=== PATIENT | female | born 2005 | race Caucasian/White ===

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

== ENCOUNTER 2025-08-10 23:19 | Emergency (ER) | payer OTHER, MEDICAID, SELFPAY ==
[2025-08-10 23:20] VITALS: BP 128/91; PULSE 78; RESP 16; TEMP 36.2; O2SAT 99; BMI 26.2
[2025-08-10 23:58] LABS: Hematocrit 40.4 % (37-47); Hemoglobin 13.9 g/dL (12.0-15.0); Immature Granulocytes Count 0.110 X10^3/uL (0.0-0.0); Mean Corp Hgb Conc 34.4 g/dL (32-36); Mean Corpuscular Volume 86.7 fL (81-99); Mean Platelet Vol. 10.7 fl (6.2-12.0); NRBC Flagged by Analyzer 0 % (0-5); Platelet Count 259 K/mm3 (150-450); RBC Distribution Width CV 12.7 % (11.6-14.6); RBC Distribution Width SD 39.8 fl (35.1-43.9); Red Blood Count 4.66 M/mm3 (4.2-5.4); White Blood Count 8.9 K/mm3 (4.4-11.0)
[2025-08-11] LABS: Mucous, Urine 0 SEEN /hpf (<or=2+); Red Blood Cells-Urine 0 SEEN /hpf (0-5)
[2025-08-11 00:01] LABS: Color, Urine Yellow (Yellow); Glucose, Dipstick Normal (Normal); Ketone-Dipstick Negative (Negative); Leukocyte Esterase-Dipstick Negative /ul (Negative); Nitrite-Dipstick Negative (Negative); Occult Blood-Urine 250 /ul (Negative); Protein-Dipstick 15 mg/dl (Negative); Specific Gravity, Urine 1.025 (1.002-1.030); Urine Bilirubin Dipstick Negative (Negative)
[2025-08-11 00:09] LABS: Squamous Epithelial Cells - UA 0-5 SEEN /hpf (5-10)
[2025-08-11 00:17] LABS: Anion Gap 10 (5-15); BUN 18 mg/dL (4-19); BUN/Creat Ratio 31.9 RATIO (10-20); Calcium,Total 9.4 mg/dL (7.6-11.0); Carbon Dioxide 22.6 mmol/L (21.0-32.0); Chloride 104 mmol/L (98-108); Estimated Creatinine Clearance 147.47 ml/min (50-250); Glucose 115 mg/dL (70-99); Internal QC Validated? YES +Cl - CLEAR BKGD; Potassium 4.1 mmol/L (3.3-5.1); Pregnancy, Serum, hCG Quali. NEGATIVE Negative; Record Kit Lot#, Serum Preg. 0000980607
--- NOTE | 2025-08-11 00:38 | EDS_ITS ---
HPI HPI - Female History of Present Illness Chief Complaint: Vag Bld, Preg Informant: patient Narrative Narrative: Patient is a 20-year-old female who reports no significant past medical history. She states that she was a few weeks late on her menstrual cycle and she believes she was . She states that this evening she developed cramping lower abdominal pain and then when she used the restroom there was a large amount of blood within her urine. She states she is unsure if she could be potentially miscarrying or have an infection and with this comes in for evaluation. She denies any history of bleeding disorder or blood thinner use PFSH PFSH Allergy/AdvReac Type Severity Reaction Status Date / Time red dye AdvReac Vomiting Verified 08/10/25 23:22 Surgical History (Updated 08/10/25 @ 23:30 by Ellen Steele) Previous section Social History Smoking Status: Never smoker ROS ROS ED Constitutional Constitutional ED: Denies chills or fever(s) ENT ENT ED: Denies sore throat Cardiovascular Cardiovascular: Denies chest pain Respiratory/Chest Respiratory/Chest: Denies cough or dyspnea Gastrointestinal Gastrointestinal: Reports abdominal pain; Denies diarrhea, nausea or vomiting Genitourinary Genitourinary ED: Reports hematuria; Denies dysuria Musculoskeletal Musculoskeletal: Denies myalgias Integumentary Denies rash Neurologic Neurologic: Denies headache(s) Hematologic/Lymphatic Hematologic/Lymphatic: Denies easy bleeding or easy bruising EXAM Physical Exam Const Vital Signs: 08/10/25 23:20 08/11/25 00:44 Temperature 97.2 F L 97.9 F Temperature Source Oral Pulse Rate 78 63 Respiratory Rate 16 16 Blood Pressure 128/91 H 112/69 Blood Pressure Mean 103 83 Pulse Ox 99 100 Oxygen Delivery Method Room Air Positive well nourished and well developed General Appearance ED: well developed; Negative for pallor HEENT HEENT Narrative: Normocephalic atraumatic Eyes PERRL and EOMs intact bilaterally General Eye ED: Negative for pale conjunctiva or scleral icterus Neck supple Resp normal respiratory effort and clear to auscultation bilaterally Cardio regular rate and regular rhythm GI normal to inspection, nondistended, normoactive bowel sounds, soft to palpation, non-tender, non-distended and no masses GI Narrative: Abdomen is soft nontender and nondistended with normal active bowel sounds. No voluntary guarding or rigidity or pulsatile mass. No organomegaly noted Auscultation: normoactive bowel sounds Palpation: soft Back/Spine no CVA tenderness Extremity normal to inspection and full ROM Neuro oriented x3, CN's II-XII intact bilaterally and no sensory deficits noted Sensorium / Orientation: alert Motor Exam: strength 5/5 throughout Psych mental status grossly normal Skin no rashes or lesions noted and no wounds Skin Narrative: Capillary refill is less than 3 seconds General Skin Exam: Negative for jaundice or pallor MDM MDM MDM Narrative Medical decision making narrative: Patient presented to ER with stable vitals. She reported abdominal cramping with blood in her urine. This could be related to kidney stone versus hemorrhagic cystitis versus complication such as miscarriage as subchorionic hemorrhage. As she does not have any CVA pain I have low concern for kidney stone. Therefore I do not feel the need for an emergent CT scan. As it is unsure if patient is or not I will hold off on ordering a ultrasound and simply check a serum value at this time along with basic laboratory studies and urine sample. Patient's white count is normal and there is no neutrophil elevation going against infection her hemoglobin hematocrit are normal as well going against acute blood loss anemia and she has no sign of acute kidney injury or electrolyte abnormality. Her urine sample does show blood but no sign of infection going against hemorrhagic cystitis. Her test is negative going against a complication. Based on her report that she was a few weeks late on her menstrual cycle and then the symptoms occurred with abdominal cramping this is most likely menorrhagia and has vitals are stable and there is no findings to suggest need for acute blood loss anemia or complication she is otherwise safe for discharge History & Record Review Discussion w/independent historian: Patient Lab Data Attestation: I reviewed the patient's lab results. Labs: Laboratory Results - last 24 hr 08/10/25 08/10/25 23:50 23:55 WBC 8.9 RBC 4.66 Hgb 13.9 Hct 40.4 MCV 86.7 MCH 29.8 MCHC 34.4 RDW Std Deviation 39.8 RDW Coeff of [place] 12.7 Plt Count 259 MPV 10.7 Immature Gran % (Auto) 1.200 H Neut % (Auto) 55.6 Lymph % (Auto) 35.5 [place] % (Auto) 6.0 Eos % (Auto) 1.4 Baso % (Auto) 0.3 Absolute Neuts (auto) 4.9 Absolute Lymphs (auto) 3.14 Nucleated RBC % 0 Sodium 137 Potassium 4.1 Chloride 104 Carbon Dioxide 22.6 Anion Gap 10 BUN 18 Creatinine 0.56 L Estim Creat Clear Calc 147.47 Est GFR (MDRD) Non-Af 134 BUN/Creatinine Ratio 31.9 H Glucose 115 H Calcium 9.4 Serum , Qual NEGATIVE Urine Color Yellow Urine Clarity Sl. Cloudy Urine pH 5.0 Ur Specific [place] 1.025 Urine Protein 15 H Urine Glucose (UA) Normal Urine Ketones Negative Urine Occult Blood 250 H Urine Nitrite Negative Urine Bilirubin Negative Urine Urobilinogen Normal Ur Leukocyte Esterase Negative Urine RBC 0 SEEN Urine WBC 0 SEEN Ur Squamous Epith Cells 0-5 SEEN Urine Bacteria 0 SEEN Urine Mucus 0 SEEN Discharge Plan Triage Chief Complaint: Vag Bld, Preg ED Provider: Kalyan Ashraf Dx/Rx/DC Orders Clinical Impression: Menorrhagia Instructions: ED Heavy Menstrual Bleeding Other Ambulatory Orders: Transvaginal Non- (Routine) Facility: [facility] - Location: [facility] Ordered By: Dr. Kalyan Ashraf Primary Care Provider: Care Physician,No Primary Referrals: Sherin Painter DO [Med Staff - Active Staff, Obstetrics-Gynecology (OBGYN)] Care Physician,No Primary [Primary Care Provider, Medical] Activity Restrictions/Additional Instructions: Your test was negative in the ER. Your urine sample does show blood consistent with your history but there is no signs of urinary tract infection. Obtain your outpatient ultrasound to assess for anatomical causes of your blee ding and follow-up with [facility] for repeat evaluation. Return to the ER should you have any further concerns Print Language: Kittitian Disposition Disposition: Home, Self Care Discharge Date/Time: 08/11/25 00:44
[2025-08-11 00:44] VITALS: BP 112/69; PULSE 63; RESP 16; TEMP 36.6; O2SAT 100
== END 2025-08-11 00:44 | disposition home or self-care (01) ==
PROVIDERS: Emergency Provider Emergency Medicine; Visit Provider Emergency Medicine
DX: N92.0 Excessive and frequent menstruation with regular cycle (principal); R31.9 Hematuria, unspecified; R10.9 Unspecified abdominal pain
CPT/HCPCS: 80048; 81001; 84703; 85025; 99283; A4216

== ENCOUNTER → 2025-09-16 | Outpatient (CLI) | payer OTHER, MEDICAID, SELFPAY ==
--- NOTE | 2025-09-16 10:11 | US_ITS ---
PROCEDURE: TRANSVAGINAL NON- 09/16/2025 REASON FOR EXAM: DYSFUNCTIONAL UTERINE BLEEDING TECHNIQUE: Procedure Code: USTVAG Modality: US Procedure: TRANSVAGINAL NON- COMPARISON: None FINDINGS: LMP: September 08, 2025. Measurements: Uterus: 9.7 cm x 5.4 cm x 3.6 cm with a volume of 97.3 mL Endometrial Thickness: 3 mm. It is trilaminar in appearance. Right Ovary: 3.1 cm x 2.7 cm x 1.7 cm with a volume of 7.7 mL. Left Ovary: 2.9 cm x 2 cm x 1.7 cm with a volume of 5.3 mL. Uterus: Normal size, myometrial echotexture, and contour. Endometrium: Unremarkable. Right ovary: Normal size and echotexture. Left ovary: Normal size and echotexture. Other: No large pelvic mass identified. US/Transvaginal Non- IMPRESSION: NORMAL transvaginal PELVIC ULTRASOUND. Reading Location: [id number]
== END | disposition home or self-care (01) ==
PROVIDERS: Referring Provider Emergency Medicine; Visit Provider Emergency Medicine
DX: N92.0 Excessive and frequent menstruation with regular cycle (principal); N93.8 Other specified abnormal uterine and vaginal bleeding
CPT/HCPCS: 76830

== ENCOUNTER 2025-10-29 20:34 | Emergency (ER) | payer OTHER, SELFPAY ==
[2025-10-29 20:34] VITALS: BP 128/79; PULSE 94; RESP 16; TEMP 36.6; O2SAT 99; BMI 21.9
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
[2025-10-29] MEDS: HYDROcodone Bitartrate/Apap 5/325 Tablet PO (21:01)
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
--- OUTSIDE RECORDS SUMMARY | 2025-10-29 21:07 | XMS RPT_ITS | CCD ---
Author Organization [facility] Care Team Providers Care Cloth Washer Name Role Phone Unavailable Primary Care Provider Unavailabl e REFERRED, SELF Referring Unavailable KARMEN LOPEZ Primary Care Unavailable SHERRON MIR Attending Unavailable Unavailable Primary Care Provider Unavailabl e Unavailable Primary Care Provider Unavailabl e Blanton DO, Cameron N Primary Care Provider BRAULIO HOU Referring Unavailable BLANTON, CAMERON N Attending Unavailable BLANTON, CAMERON N Primary Care Unavailable BLANTON, CAMERON N Referring Unavailable BLANTON, CAMERON N Primary Care Unavailable PAKO NEWOTN Referring Unavailable BLANTON, CAMERON N Primary Care Unavailable PAKO NEWTON Attending Unavailable BLANTON, CAMERON N Primary Care Unavailable RUTH RAMIREZ Attending Unavailable BLANTON, CAMERON N Primary Care Unavailable BLANTON, CAMERON N Primary Care Unavailable SELF Referring Unavailable DAYRON CAO Attending Unavailable BLANTON, CAMERON N Primary Care Unavailable BLANTON, CAMERON N Primary Care Unavailable SELF Referring Unavailable BLANTON, CAMERON N Primary Care Unavailable RUTH RAMIREZ Attending Unavailable Kalyan Ashraf Attending Unavailable Care Physician, No Primary Primary Care Unava ilable Care Physician, No Primary Primary Care Physicia n Unavailable Dr. Kalyan Ashraf DO Attending Physician [phone] Dr. Kalyan Ashraf DO Emergency Department Physic kinjal Allergies Allergy Classification Reported Allergen(s) Allergy Type Date of Onset Reaction(s) Facility (3 sources) Contrast media; Translations: [RED DYE] Propensity to adverse reactions to drug (disorder) 6 Vomiting [facility] Repository (16 sources) Fd And C Red No.40; Translations: [FD AND C RED NO.40] Drug Allergy 6 GI Upset [facility] Medications Current Medications Medication Drug Class(es) Dates Sig (Normalized) Sig (Original) amoxicillin 875 mg / clavulanate 125 mg oral tablet (3 sources) Penicillin-class Antibacterial Start: 07-01-2024 End: 07-08-2024 take 1 tablet by mouth twice daily amoxicillin-clavu lanate potassium (AUGMENTIN) 875-125 mg per tablet Take 1 tablet by mouth two times a day for 7 days. 14 tablet 07/01/2024 07/08/2024 Active benzonatate 100 mg oral capsule (3 sources) Non-narcotic Antitussive Start: 02-28-2025 End: 03-07-2025 take 1 capsule by mouth three times daily as needed for cough benzonatate (TESSALON PERLE) 100 mg capsule Indications: Viral URI with cough Take 1 capsule by mouth three times a day as needed for cough for up to 7 days. 20 capsule 02/28/2025 03/07/2025 Active Start: 07-06-2024 End: 08-09-2024 take 1 capsule by mouth every eight hours as needed benzonatate (TESSALON PERLE) 100 mg capsule Take 1 capsule by mouth three times a day as needed. 21 capsule 07/06/2024 08/09/2024 Discontinued clotrimazole 10 mg/ml topical cream (1 source) Azole Antifungal Start: 08-28-2024 End: 09-11-2024 clotrimazole (LOTRIMIN) 1 % cream Indications: Ringworm Apply 1 application to affected area two times a day for 14 days. Can be used 2-4 weeks...... use for 3 days after area is completley healed up. 28 g 08/28/2024 09/11/2024 Active doxycycline monohydrate 100 mg oral tablet (1 source) Tetracycline-class Drug Start: 07-06-2024 End: 07-13-2024 take 1 tablet by mouth twice daily doxycycline monohydrate 100 mg tablet Take 1 tablet by mouth two times a day for 7 days. 14 tablet 07/06/2024 07/13/2024 Active metroNIDAZOLE 500 mg oral tablet (1 source) Nitroimidazole Antimicrobial Start: 02-16-2024 End: 02-23-2024 take 1 tablet by mouth twice daily metroNIDAZOLE (FLAGYL) 500 mg tablet Take 1 tablet by mouth two times a day for 7 days. 14 tablet 0 02/16/2024 02/23/2024 Active Completed/Discontinued Medications Medication Drug Class(es) Dates Sig (Normalized) Sig (Original) acetaminophen 500 mg oral tablet (2 sources) Start: 01-06-2024 End: 08-10-2025 take 2 tablets by mouth every six hours Acetaminophen 500 mg Tablet Discontinued 1000 mg PO EVERY 6 HOURS 29 11January 06, 2024 1:00am August 10, 2025 11:29pm Start: 01-06-2024 take 1000 mg by mout h every six hours Acetaminophen Active 1000 MG PO EVERY 6 HOURS January 06, 2024 12:00am [id number] 200 actuat albuterol 0.09 mg/actuat metered dose inhaler (2 sources) beta2-Adrenergic Agonist Start: 07-06-2024 End: 08-09-2024 take 2 puff(s) by inhalation every four hours as needed for wheezing albuterol HFA (PROVENTIL HFA, VENTOLIN HFA) 90 mcg/actuation inhaler Inhale 2 Puffs as instructed every 4 hours as needed for wheezing/shortness of breath. 6.7 g 07/06/2024 08/09/2024 Discontinued aspirin 162 mg oral tablet (20 sources) Platelet Aggregation Inhibitor, Nonsteroidal Anti-inflammatory Drug End: 08-09-2024 take 162 mg by mouth once daily BABY ASPIRIN ORAL Take 162 mg by mouth once daily. 08/09/2024 Discontinued Comment on above: Take 162 mg by mouth once daily. docosahexaenoic acid 200 mg oral capsule (3 sources) Start: 12-15-2023 End: 08-10-2025 Docosahexaenoic Acid ( Dha) 200 mg capsule Discontinued mg PO December 15, 2023 1:00am August 10, 2025 11:29pm 168 hr ethinyl estradiol 0.77165 mg/hr / norelgestromin 0.31981 mg/hr transdermal system (6 sources) Progestin, Estrogen Start: 10-19-2022 End: 06-01-2023 apply 1 dose transdermal route every week Ethinyl Estradiol-Norelgestro m (XULANE) 150-35 mcg/24 hr patch Apply 1 Patch as directed one time a week. 9 Patch 3 01/17/2023 06/01/2023 Discontinued Comment on above: Apply 1 Patch as dir ected one time a week. etonogestrel 68 mg drug implant (20 sources) Progestin Start: 02-22-2024 End: 02-21-2027 etonogestrel (NEXPLANON) subdermal implant 68 mg Indications: Insertion of implantable subdermal contraceptive 1 Each by SUBDERMAL route as directed. 1 Each 02/22/2024 05/08/2025 Discontinued (Discontinued by Patient) fluticasone propionate 0.05 mg/actuat metered dose nasal spray (5 sources) Corticosteroid Start: 02-28-2025 End: 05-08-2025 take 2 spray(s) nasal route once daily fluticasone (FLONASE) 50 mcg/actuation nasal spray Indications: Viral URI with cough Use 2 sprays in each nostril once daily. 1 each 02/28/2025 05/08/2025 Discontinued (Discontinued by Patient) ibuprofen 600 mg oral tablet (2 sources) Nonsteroidal Anti-inflammatory Drug Start: 01-06-2024 End: 08-10-2025 take 1 tablet by mouth every six hours Ibuprofen 600 mg Tablet Discontinued 600 mg PO EVERY 6 HOURS 30 1 January 06, 2024 1:00am August 10, 2025 11:29pm meloxicam 15 mg oral tablet (8 sources) Nonsteroidal Anti-inflammatory Drug Start: 01-14-2025 End: 05-08-2025 take 1 tablet by mouth once daily meloxicam (MOBIC) 15 mg tablet Indications: Patellar tendonitis of right knee Take 1 tablet by mouth once daily. 30 tablet 1 01/14/2025 05/08/2025 Discontinued (Discontinued by Patient) ondansetron 4 mg disintegrating oral tablet (11 sources) Serotonin-3 Receptor Antagonist Start: 03-20-2024 End: 08-10-2025 take 1 tablet by mouth every eight hours as needed for nausea Ondansetron 4 mg tablet,disintegrating Discontinued 4 mg PO EVERY 8 HOURS NEEDED as needed for Nausea 14 March 20, 2024 12:00am August 10, 2025 11:29pm Start: 11-21-2023 End: 02-19-2024 take 1 tablet by mouth every eight hours as needed ondansetron orally disintegrating (ZOFRAN ODT) 4 mg disintegrating tablet Take 1 tablet by mouth every 8 hours as needed for nausea/vomiting. 30 tablet 0 11/21/2023 02/19/2024 Active Comment on above: Take 1 tablet by lisandra th every 8 hours as needed for nausea/vomiting. oxyCODONE hydrochloride 5 mg oral tablet (2 sources) Opioid Agonist Start: End: take 1 tablet by mouth twice daily as needed for pain Oxycodone 5 mg tablet Discontinued 5 mg PO TWICE A DAY as needed for pain 10 5 0 January 06, 2024 August 10, 2025 11:29pm Postoperative pain Other acute postprocedural pain PNV no.95/ferrous fum/folic ac ( ORAL) (20 sources) End: PNV no.95/ferrous fum/folic ac ( ORAL) Take by mouth. 08/09/2024 Discontinued PNV no.95/ferrou s fum/folic ac ( ORAL) Take by mouth. Active PNV no.95/ferrou s fum/folic ac ( ORAL) Take by mouth. 0 Active Comment on above: Take by mouth. predniSONE 20 mg oral tablet (1 source) Start: 07-06-2024 End: 07-06-2024 take 2 tablets by mouth once daily at mealtime predniSONE (DELTASONE) 20 mg tablet Take 2 tablets by mouth once daily for 4 days. Take daily with food. 8 tablet 07/06/2024 07/06/2024 Discontinued (Other) Problems Active Problems Problem Classification Problem Date Documented Date Episodic/Chronic Abdominal pain (3 sources) Abdominal pain; Translations: [Unspecified abdominal pain] 01-04-2024 Episodic Anxiety disorders (20 sources) Anxiety; Translations: [Anxiety disorder, unspecified] Onset: 06-01-2023 06-01-2023 Chronic Attention-deficit, conduct, and disruptive behavior disorders (20 sources) Attention deficit hyperactivity disorder, combined type; Translations: [Attention-deficit hyperactivity disorder, combined type] Onset: 07-08-2015 06-01-2023 Chronic Conditions associated with dizziness or vertigo (1 source) Dizziness; Translations: [Dizziness and giddiness] 03-20-2024 Episodic Contraceptive and procreative management (3 sources) Contraception status; Translations: [Encounter for surveillance of transdermal patch hormonal contraceptive device] Onset: 05-08-2025 Episodic Early or threatened labor (3 sources) False labor; Translations: [False labor, unspecified] 12-16-2023 Episodic Immunizations and screening for infectious disease (19 sources) Patient encounter status; Translations: [Encounter for screening laboratory testing for COVID-19 virus] Onset: 02-13-2025 Episodic Inflammatory diseases of female pelvic organs (1 source) Acute vaginitis; Translations: [Acute vaginitis] 02-15-2024 Episodic Malaise and fatigue (1 source) Asthenia; Translations: [Weakness] 03-20-2024 Episodic Menstrual disorders (5 sources) Primary amenorrhea; Translations: [Primary amenorrhea] Chronic Mood disorders (2 sources) Disturbance in mood; Translations: [Emotional lability] Onset: 05-08-2025 05-08-2025 Episodic Mycoses (1 source) Dermatophytosis; Translations: [Dermatophytosis, unspecified] 08-28-2024 Episodic Other circulatory disease (1 source) Elevated blood-pressure reading without diagnosis of hypertension; Translations: [Elevated blood-pressure reading, without diagnosis of hypertension] 12-21-2023 Episodic Other complications of ; puerperium affecting management of mother (3 sources) Deliveries by ; Translations: [Delivery by section] 01-07-2024 Episodic Comment on above: POD#4 Other complications of ; puerperium affecting management of mother (3 sources) Teenage ; Translations: [Teen ] 01-03-2024 Episodic Other connective tissue disease (1 source) Tendonitis of right patellar tendon; Translations: [Patellar tendinitis, right knee] 01-14-2025 Episodic Other female genital disorders (1 source) Abnormal uterine and vaginal bleeding, unspecified; Translations: [Abnormal uterine and vaginal bleeding, unspecified] Onset: 08-15-2025 Chronic Other female genital disorders (1 source) Vaginal odor; Translations: [Other specified noninflammatory disorders of vagina] 03-13-2025 Episodic Other female genital disorders (1 source) Other specified noninflammatory disorders of vagina; Translations: [Vaginal odor] Onset: 03-13-2025 Episodic Other injuries and conditions due to external causes (1 source) Tampon in vagina; Translations: [Foreign body in vulva and vagina, subsequent encounter] 03-13-2025 Episodic Other injuries and conditions due to external causes (1 source) Foreign body in vulva and vagina, subsequent encounter; Translations: [Retained tampon, subsequent encounter] Onset: 03-13-2025 Episodic Other lower respiratory disease (2 sources) Cough; Translations: [Acute cough] 07-06-2024 Episodic Other nervous system disorders (2 sources) Postoperative pain ; Translations: [Other acute postprocedural pain] 01-06-2024 Episodic Other and delivery including normal (9 sources) with uncertain dates; Translations: [Encounter for supervision of normal , unspecified, unspecified trimester] 06-01-2023 Episodic Other skin disorders (1 source) Loss of hair; Translations: [Nonscarring hair loss, unspecified] 08-09-2024 Episodic Other upper respiratory disease (1 source) Nasal congestion; Translations: [Nasal congestion] 06-10-2024 Episodic Other upper respiratory infections (3 sources) Pharyngitis; Translations: [Acute pharyngitis, unspecified] Episodic Otitis media and related conditions (1 source) Acute right otitis media; Translations: [Otitis media, unspecified, right ear] 07-01-2024 Episodic Pneumonia (except that caused by tuberculosis or sexually transmitted disease) (1 source) Infective pneumonia; Translations: [Pneumonia, unspecified organism] 07-06-2024 Episodic Polyhydramnios and other problems of amniotic cavity (1 source) Spontaneous rupture of membranes 01-15-2024 Episodic Prolonged (6 sources) Post-term ; Translations: [Post-term ] 01-06-2024 Episodic Residual codes; unclassified (1 source) Gestation [...] 12-21-2023 Episodic Residual codes; unclassified (1 source) Gestation period, 40 weeks; Translations: [40 weeks gestation of ] 12-28-2023 Episodic Unclassified (2 sources) Spontaneous rupture of membranes; Translations: [Spontaneous rupture of amniotic membranes] 01-03-2024 Unclassified (1 source) Right knee pain, unspecified chronicity 01-01-2025 Unclassified (1 source) Retained tampon, subsequent encounter; Translations: [Retained tampon, subsequent encounter] Onset: 03-13-2025 Unclassified (1 source) Acute cough; Translations: [Acute cough] Onset: 07-06-2024 Viral infection (2 sources) Viral disease; Translations: [Viral infection, unspecified] Episodic Past or Other Problems Problem Classification Problem Date Documented Da te Episodic/Chronic Other complications of (20 sources) High risk ; Translations: [Supervision of high risk , unspecified, second trimester] Onset: 09-07-2023 Resolved: 08-09-2024 09-07-2023 Episodic Other non-traumatic joint disorders (3 sources) Pain in right knee; Translations: [Pain in joint, lower leg] Onset: 01-14-2025 01-01-2025 Episodic Other skin disorders (1 source) Nonscarring hair loss, unspecified; Translations: [Hair loss] Onset: 08-09-2024 Episodic Results Test Name Value Interpretation Reference Range Facility Basic Metabolic Profile (BMP )on 08-11-2025 BUN/CRE 31.9 RATIO High 08-19 [facility] Comment on above: Performed By: #### L 500.2500, L100.0100, L700.6800 #### [facility] [address] [place], [address] Calcium [Mass/Vol] 9.4 mg/dL Normal 7.6-11.0 [facility] Comment on above: Performed By: #### L 500.2500, L100.0100, L700.6800 #### [facility] [address] [place], [address] Chloride [Moles/Vol] 104 mmol/L Normal 98-108 [facility] Comment on above: Performed By: #### L 500.2500, L100.0100, [id number] #### [facility] [address] [place], [address] CO2 [Moles/Vol] 22.6 mmol/L Normal 21.0-32.0 [facility] Comment on above: Performed By: #### L 500.2500, L100.0100, L700.6800 #### [facility] [address] [place], [address] Creatinine [Mass/Vol] 0.56 mg/dL Low 0.70-1.20 [facility] Comment on above: Performed By: #### L 500.2500, L100.0100, L700.6800 #### [facility] [address] [place], [address] ECRCL 147.47 ml/min Normal 50-250 [facility] Comment on above: Performed By: #### L 500.2500, L100.0100, [id number] #### [facility] [address] [place], [address] GAP 10 Normal 5-15 [facility] Comment on above: Performed By: #### L 500.2500, L100.0100, L700.6800 #### [facility] [address] [place], [address] GFR/1.73 sq M.predicted among non-blacks MDRD (S/P/Bld) [Vol rate/Area] 134 mL/min/{1.73_m2} Normal >60 [facility] Comment on above: Result Comment: mL/m in/1.73m2 CKD-EPI Creatinine Equation (2020) Performed By: #### L 500.2500, L100.0100, L700.6800 #### [facility] [address] [place], [address] Glucose [Mass/Vol] 115 mg/dL High 70-99 [facility] Comment on above: Performed By: #### L 500.2500, L100.0100, [id number] #### [facility] [address] [place], [address] Potassium [Moles/Vol] 4.1 mmol/L Normal 3.3-5.1 [facility] Comment on above: Performed By: #### L 500.2500, L100.0100, [id number] #### [facility] [address] [place], [address] Sodium [Moles/Vol] 137 mmol/L Normal 133-145 [facility] Comment on above: Performed By: #### L 500.2500, L100.0100, [id number] #### [facility] [address] [place], [address] Urea nitrogen [Mass/Vol] 18 mg/dL Normal 4-19 [facility] Comment on above: Performed By: #### L 500.2500, L100.0100, [id number] #### [facility] [address] [place], [address] Emergency Department Summary on 08-11-2025 Emergency Department Summary [facility] Medical Records Department [address] [place] [address] Emergency Department Summary 08/11/25 MR#: [id number] Acct: [id number] Name: MARISOL PONCE Rep #: [id number] : 2005 20 From: Kalyan Ashraf DO PCP: Care Physician,No Primary Status:DEP ER Location: ED HPI HPI - Female History of Present Illness Chief Complaint: Vag Bld, Preg Informant: patient Narrative Narrative: Patient is a 20-year-old female who reports no significant past medical history. She states that she was a few weeks late on her menstrual cycle and she believes she was . She states that this evening she developed cramping lower abdominal pain and then when she used the restroom there was a large amount of blood within her urine. She states she is unsure if she could be potentially miscarrying or have an infection and with this comes in for evaluation. She denies any history of bleeding disorder or blood thinner use PFSH PFSH Allergy/AdvReac Type Severity Reaction Status Date / Time red dye AdvReac Vomiting Verified 08/10/25 23:22 Surgical History (Updated 08/10/25 @ 23:30 by Ellen Steele) Previous section Social History Smoking Status: Never smoker ROS ROS ED Constitutional Constitutional ED: Denies chills or fever(s) ENT ENT ED: Denies sore throat Cardiovascular Cardiovascular: Denies chest pain Respiratory/Chest Respiratory/Chest: Denies cough or dyspnea Gastrointestinal Gastrointestinal: Reports abdominal pain; Denies diarrhea, nausea or vomiting Genitourinary Genitourinary ED: Reports hematuria; Denies dysuria Musculoskeletal Musculoskeletal: Denies myalgias Integumentary Denies rash Neurologic Neurologic: Denies headache(s) Hematologic/Lymphatic Hematologic/Lymphatic: Denies easy bleeding or easy bruising EXAM Physical Exam Const Vital Signs: 08/10/25 23:20 08/11/25 00:44 Temperature 97.2 F L 97.9 F Temperature Source Oral Pulse Rate 78 63 Respiratory Rate 16 16 Blood Pressure 128/91 H 112/69 Blood Pressure Mean 103 83 Pulse Ox 99 100 Oxygen Delivery Method Room Air Positive well nourished and well developed General Appearance ED: well developed; Negative for pallor HEENT HEENT Narrative: Normocephalic atraumatic Eyes PERRL and EOMs intact bilaterally General Eye ED: Negative for pale conjunctiva or scleral icterus Neck supple Resp normal respiratory effort and clear to auscultation bilaterally Cardio regular rate and regular rhythm GI normal to inspection, nondistended, normoactive bowel sounds, soft to palpation, non-tender, non- distended and no masses GI Narrative: Abdomen is soft nontender and nondistended with normal active bowel sounds. No voluntary guarding or rigidity or pulsatile mass. No organomegaly noted Auscultation: normoactive bowel sounds Palpation: soft Back/Spine no CVA tenderness Extremity normal to inspection and full ROM Neuro oriented x3, CN's II-XII intact bilaterally and no sensory deficits noted Sensorium / Orientation: alert Motor Exam: strength 5/5 throughout Psych mental status grossly normal Skin no rashes or lesions noted and no wounds Skin Narrative: Capillary refill is less than 3 seconds General Skin Exam: Negative for jaundice or pallor MDM MDM MDM Narrative Medical decision making narrative: Patient presented to ER with stable vitals. She reported abdominal cramping with blood in her urine. This could be related to kidney stone versus hemorrhagic cystitis versus complication such as miscarriage as subchorionic hemorrhage. As she does not have any CVA pain I have low concern for kidney stone. Therefore I do not feel the need for an emergent CT scan. As it is unsure if patient is or not I will hold off on ordering a ultrasound and simply check a serum value at this time along with basic laboratory studies and urine sample. Patient's white count is normal and there is no neutrophil elevation going against infection her hemoglobin hematocrit are normal as well going against acute blood loss anemia and she has no sign of acute kidney injury or electrolyte abnormality. Her urine sample does show blood but no sign of infection going against hemorrhagic cystitis. Her test is negative going against a complication. Based on her report that she was a few weeks late on her menstrual cycle and then the symptoms occurred with abdominal cramping this is most likely menorrhagia and has vitals are stable and there is no findings to suggest need for acute blood loss anemia or complication she is otherwise safe for discharge History Record Review Discussion w/independent historian: Patient Lab (more content not included)... Normal [facility] ,Serum,hCG Quali.on 08-11-2025 HCG, SERUM QUAL Negative Normal [facility] Comment on above: Performed By: #### L 500.2500, L100.0100, L700.6800 #### [facility] [address] [place], [address] Urinalysis, Completeon 08-11 EPI,SQUAMOUS 0-5 SEEN Normal 5-10 [facility] Comment on above: Order Comment: CLEAN CATCH Performed By: #### L 400.0001 #### [facility] [address] [place], [address] BACTERIA 0 SEEN Normal None Seen [facility] Comment on above: Order Comment: CLEAN CATCH Performed By: #### L 400.0001 #### [facility] [address] [place], [address] Mucus Ql (Urine sed) 0 SEEN Normal [facility] Comment on above: Order Comment: CLEAN CATCH Performed By: #### L 400.0001 #### [facility] [address] [place], [address] RBC 0 SEEN Normal 0-5 [facility] Comment on above: Order Comment: CLEAN CATCH Performed By: #### L 400.0001 #### [facility] [address] [place], [address] WBC 0 SEEN Normal 0-5 [facility] Comment on above: Order Comment: CLEAN CATCH Performed By: #### L 400.0001 #### [facility] [address] [place], [address] Absolute lymphocyte countOrd ered By: Kalyan Ashraf on 08-10-2025 Lymphocytes Auto (Unsp spec) [#/Vol] 3.14 10*3/uL 0.83-4.51 [facility] Absolute neutrophil countOrd ered By: Kalyan Ashraf on 08-10-2025 Neutrophils (Bld) [#/Vol] 4.9 10*3/uL 2.0-7.7 [facility] Anion gap in Serum or Plasma Ordered By: Kalyan Ashraf on 08-10-2025 Anion gap [Moles/Vol] 10 mmol/L 5- [facility] Automated lymphocyte count a s percentage of total leukocytesOrdered By: Kalyan Ashraf on 08-10-2025 Lymphocytes/100 WBC Auto (Unsp spec) 35.5 % - [facility] BUN/creatinine ratioOrdered By: Kalyan Ashraf on 08-10-2025 Urea nitrogen/Creatinine [Mass ratio] 31.9 mg/mg High 10- [facility] Basophil percentageOrdered B y: Kalyan Ashraf on 08-10-2025 Basophils/100 WBC (Bld) 0.3 % 0-1 [facility] Bilirubin Test strip Ql (U)O rdered By: Kalyan Ashraf on 08-10-2025 Bilirubin Ql (U) Negative Negative [facility] CBC W/Diff, Automatedon 07-31 Absolute Lymph 3.14 X10 3/uL Normal 0.83-4.51 [facility] Comment on above: Performed By: #### L 500.2500, L100.0100, L700.6800 #### [facility] [address] [place], [address] Absolute Neut 4.9 X10 3/uL Normal 2.0-7.7 [facility] Comment on above: Performed By: #### L 500.2500, L100.0100, L700.6800 #### [facility] [address] [place], [address] Basophils/100 WBC (Bld) 0.3 % Normal 0-1 [facility] Comment on above: Performed By: #### L 500.2500, L100.0100, L700.6800 #### [facility] [address] [place], [address] Eosinophils/100 WBC (Bld) 1.4 % Normal 0-5 [facility] Comment on above: Performed By: #### L 500.2500, L100.0100, L700.6800 #### [facility] [address] [place], [address] Erythrocyte distribution width (RBC) [Ratio] 12.7 % Normal 11.6-14.6 [facility] Comment on above: Performed By: #### L 500.2500, L100.0100, L700.6800 #### [facility] [address] [place], [address] Hematocrit (Bld) [Volume fraction] 40.4 % Normal 37-47 [facility] Comment on above: Performed By: #### L 500.2500, L100.0100, L700.6800 #### [facility] [address] [place], [address] Hemoglobin (Bld) [Mass/Vol] 13.9 g/dL Normal 12.0-15.0 [facility] Comment on above: Performed By: #### L 500.2500, L100.0100, L700.6800 #### [facility] [address] [place], [address] IG% 1.200 High 0.0-0.9 [facility] Comment on above: Result Comment: IG% - Immature Granulocytes (promyelocytes, myelocytes and metamyelocytes) > 1% indicates that a LEFT SHIFT is Present. Performed By: #### L 500.2500, L100.0100, L700.6800 #### [facility] [address] [place], [address] Lymphocytes/100 WBC (Bld) 35.5 % Normal 19-41 [facility] Comment on above: Performed By: #### L 500.2500, L100.0100, L700.6800 #### [facility] [address] [place], [address] MCH (RBC) [Entitic mass] 29.8 pg Normal 27.0-32.0 [facility] Comment on above: Performed By: #### L 500.2500, L100.0100, L700.6800 #### [facility] [address] [place], [address] MCHC (RBC) [Mass/Vol] 34.4 g/dL Normal 32-36 [facility] Comment on above: Performed By: #### L 500.2500, L100.0100, L700.6800 #### [facility] [address] [place], [address] MCV (RBC) [Entitic vol] 86.7 fL Normal 81-99 [facility] Comment on above: Performed By: #### L 500.2500, L100.0100, L700.6800 #### [facility] [address] [place], [address] Monocytes/100 WBC (Bld) 6.0 % Normal 0-10 [facility] Comment on above: Performed By: #### L 500.2500, L100.0100, L700.6800 #### [facility] [address] [place], [address] Neutrophils/100 WBC (Bld) 55.6 % Normal 47-70 [facility] Comment on above: Performed By: #### L 500.2500, L100.0100, L700.6800 #### [facility] [address] [place], [address] Nucleated RBC (Bld) [#/Vol] 0 10*3/uL Normal 0-5 [facility] Comment on above: Performed By: #### L 500.2500, L100.0100, L700.6800 #### [facility] [address] [place], [address] Platelet mean volume (Bld) [Entitic vol] 10.7 fL Normal 6.2-12.0 [facility] Comment on above: Performed By: #### L 500.2500, L100.0100, L700.6800 #### [facility] [address] [place], [address] Platelets (Bld) [#/Vol] 259 10*3/uL Normal 150-450 [facility] Comment on above: Performed By: #### L 500.2500, L100.0100, L700.6800 #### [facility] [address] [place], [address] RBC (Bld) [#/Vol] 4.66 10*6/uL Normal 4.2-5.4 [facility] Comment on above: Performed By: #### L 500.2500, L100.0100, L700.6800 #### [facility] [address] [place], [address] RDW SD 39.8 fl Normal 35.1-43.9 [facility] Comment on above: Performed By: #### L 500.2500, L100.0100, L700.6800 #### [facility] [address] [place], [address] WBC (Bld) [#/Vol] 8.9 10*3/uL Normal 4.4-11.0 [facility] Comment on above: Performed By: #### L 500.2500, L100.0100, L700.6800 #### [facility] [address] [place], [address] Carbon dioxide, total [Moles /volume] in Central venous bloodOrdered By: Kalyan Ashraf on 08-10-2025 CO2 [Moles/Vol] 22.6 mmol/L 21.0-32.0 [facility] Chloride assayOrdered By: Tressa Ashraf on 08-10-2025 Chloride [Moles/Vol] 104 mmol/L 98-108 [facility] Eosinophil percentageOrdered By: Kalyan Ashraf on 08-10-2025 Eosinophils/100 WBC (Bld) 1.4 % 0-5 [facility] Erythrocyte distribution wid th ratioOrdered By: Kalyan Ashraf on 08-10-2025 Erythrocyte distribution width (RBC) [Ratio] 12.7 % 11.6-14.6 [facility] Erythrocyte distribution wid th standard deviationOrdered By: Kalyan Ashraf on 08-10-2025 Erythrocyte distribution width (RBC) [Ratio] 39.8 fl 35.1-43.9 [facility] Glomerular filtration rate ( GFR) estimation/1.73 sq m using serum, plasma, or whole bOrdered By: Kalyan Ashraf on 08-10-2025 GFR/1.73 sq M.predicted among non-blacks MDRD (S/P/Bld) [Vol rate/Area] 134 mL/min/{1.73_m2} >60 [facility] Comment on above: mL/min/1.73m2 CKD-EP I Creatinine Equation (2020) Hematocrit Auto (Bld) [Volum e fraction]Ordered By: Kalyan Ashraf on 08-10-2025 Hematocrit (Bld) [Volume fraction] 40.4 % 37-47 [facility] Hemoglobin measurementOrdere d By: Kalyan Ashraf on 08-10-2025 Hemoglobin (Bld) [Mass/Vol] 13.9 g/dL 12.0-15.0 [facility] Immature granulocytes/100 WB C Auto (Bld)Ordered By: Kalyan Ashraf on 08-10-2025 Immature granulocytes/100 WBC (Bld) 1.200 % High 0.0-0.9 [facility] Comment on above: IG% - Immature Granu locytes (promyelocytes, myelocytes and metamyelocytes) > 1% indicates that a LEFT SHIFT is Present. Ketones Test strip Ql (U)Ord ered By: Kalyan Ashraf on 08-10-2025 Ketones Ql (U) Negative Negative [facility] MCV (mean corpuscular volume ) determinationOrdered By: Kalyan Ashraf on 08-10-2025 MCV (RBC) [Entitic vol] 86.7 fL 81-99 [facility] Mean corpuscular hemoglobin (MCH) determinationOrdered By: Kalyan Ashraf on 08-10-2025 MCH (RBC) [Entitic mass] 29.8 pg 27.0-32.0 [facility] Mean corpuscular hemoglobin concentration (MCHC) determinationOrdered By: Kalyan Ashraf on 08-10-2025 MCHC (RBC) [Mass/Vol] 34.4 g/dL 32-36 [facility] Mean platelet volume determi nationOrdered By: Kalyan Ashraf on 08-10-2025 Platelet mean volume (Bld) [Entitic vol] 10.7 fL 6.2-12.0 [facility] Microscopic analysis of urin e for red blood cells (RBC)Ordered By: Kalyan Ashraf on 08-10-2025 Microscopic analysis of urine for red blood cells (RBC) 0 SEEN /hpf 0-5 [facility] Monocyte percentageOrdered B y: Kalyan Ashraf on 08-10-2025 Monocytes/100 WBC (Bld) 6.0 % 0-10 [facility] Mucus LM Ql (Urine sed)Order ed By: Kalyan Ashraf on 08-10-2025 Mucus Ql (Urine sed) 0 SEEN /hpf [facility] Neutrophil percentageOrdered By: Kalyan Ashraf on 08-10-2025 Neutrophils/100 WBC (Bld) 55.6 % 47-70 [facility] Nitrite Test strip Ql (U)Ord ered By: Kalyan Ashraf on 08-10-2025 Nitrite Ql (U) Negative Negative [facility] Nucleated red blood cell per centageOrdered By: Kalyan Ashraf on 08-10-2025 Nucleated RBC/100 WBC (Bld) [Ratio] 0 % 0-5 [facility] Platelet countOrdered By: Tressa Ashraf on 08-10-2025 Platelets (Bld) [#/Vol] 259 10*3/uL 150-450 [facility] Potassium measurement (mass/ volume)Ordered By: Kalyan Ashraf on 08-10-2025 Potassium (Unsp spec) [Mass/Vol] 4.1 mmol/L 3.3-5.1 [facility] Protein Test strip Ql (U)Ord ered By: Kalyan Ashraf on 08-10-2025 Protein Ql (U) 15 mg/dl High Negative [facility] RBC Auto (Bld) [#/Vol]Ordere d By: Kalyan Ashraf on 08-10-2025 RBC (Bld) [#/Vol] 4.66 10*6/uL 4.2-5.4 [facility] Serum beta-hCG test, qualita tiveOrdered By: Kalyan Ashraf on 08-10-2025 Beta HCG ( test) Ql Negative [facility] Serum creatinine measurement (mass/volume)Ordered By: Kalyan Ashraf on 08-10-2025 Creatinine [Mass/Vol] 0.56 mg/dL Low 0.70-1.20 [facility] Serum glucose measurement (m ass/volume)Ordered By: Kalyan Ashraf on 08-10-2025 Glucose [Mass/Vol] 115 mg/dL High 70-99 [facility] Serum or plasma calcium annie urement (mass/volume)Ordered By: Kalyan Ashraf on 08-10-2025 Calcium [Mass/Vol] 9.4 mg/dL 7.6-11.0 [facility] Serum or plasma urea nitroge n measurement (mass/volume)Ordered By: Kalyan Ashraf on 08-10-2025 Urea nitrogen [Mass/Vol] 18 mg/dL 4-19 [facility] Sodium levelOrdered By: Onesimo Ashraf on 08-10-2025 Sodium [Moles/Vol] 137 mmol/L 133-145 [facility] Squamous epithelial cells de tection in urine sediment by light microscopyOrdered By: Kalyan Ashraf on 08-10-2025 Epithelial cells.squamous LM Ql (Urine sed) 0-5 SEEN /hpf 5-10 [facility] Urine clarityOrdered By: Herb Ashraf on 08-10-2025 Clarity (U) Sl. Cloudy Clear [facility] Urine color determinationOrd ered By: Kalyan Ashraf on 08-10-2025 Color (U) Yellow Yellow [facility] Urine glucose detectionOrder ed By: Kalyan Ashraf on 08-10-2025 Glucose Ql (U) Normal mg/dl Normal [facility] Urine leukocyte esterase det ection by dipstickOrdered By: Kalyan Ashraf on 08-10-2025 Leukocyte esterase Test strip Ql (U) Negative Negative [facility] Urine pHOrdered By: Kalyan castillo on 08-10-2025 pH (U) 5.0 [pH] 5.0 - 8.0 [facility] Urine sediment bacteria coun t by microscopy (number/high power field)Ordered By: Kalyan Ashraf on 08-10-2025 Bacteria LM.HPF (Urine sed) [#/Area] 0 /[HPF] None Seen [facility] Urine specific gravity measu rementOrdered By: Kalyan Ashraf on 08-10-2025 Specific gravity (U) [Rel density] 1.025 1.002-1.030 [facility] Urine urobilinogen measureme ntOrdered By: Kalyan Ashraf on 08-10-2025 Urobilinogen Ql (U) Normal mg/dl Normal [facility] White blood cell (WBC) count Ordered By: Kalyan Ashraf on 08-10-2025 WBC (Bld) [#/Vol] 8.9 10*3/uL 4.4-11.0 [facility] White blood cell countOrdere d By: Kalyan Ashraf on 08-10-2025 White blood cell count 0 SEEN /hpf 0-5 [facility] CNOVon 05-08-2025 CNOV Office Visit (OBGYWM ) -------- MARISOL PONCE ([id number]) 5 F Date Time Provider Department 05/08/25 9:30 AM RUTH RAMIREZ OBTIFFANYWM During your visit today, we recorded the following information about you: Blood pressure Weight Last Period 100/62 72.6 kg 05/01/25 Ruth Ramirez APRN.CNM 05/08/2025 9:45 AM Signed Mairsol is a 19 year old who presents for Nexplanon removal for mood changes and heavy periods. UNIVERSAL PROTOCOL / SAFETY CHECKLIST Procedure to be Performed: Implanon/Nexplanon (contraceptive subdermal implant) removal Sign In: A Moment of CARE was completed. Appropriate PPE (Personal Protective Equipment) worn by all providers involved with the procedure. Special equipment not required. Patient/Surrogate Stated/Verified: Patient name, Date of , Relevant allergies, and The intended procedure Time Out: Relevant labs, photos, and/or imaging studies are not applicable. Intended patient and procedure match the source document(s) (e.g. consent, HANDP, associated studies [imaging, pathology]) match the intended patient and procedure. Consent obtained and matches the intended procedure. Yes. Correct side/site is not applicable. Medications required for this procedure are verified. Fire risk assessed and is not applicable. Implants: are not applicable. Sign Out: Specimens not collected. All instruments, equipment, possible retained foreign bodies are accounted for. Yes. The post-procedure plan of care has been communicated to the patient or surrogate. TECHNIQUE: Patient placed in supine position with left arm bent at the elbow and placed over the head. Skin cleansed with betadine. 1mL of 1% lidocaine with epi injected subQ along insertion site. Scalpel used to made a 5mm stab incision superficially at distal end of Nexplanon. Device removed under sterile technique with a small hemostat. Sterile pressure dressing applied. AANDP: 19 year old here for Nexplanon removal Nexplanon removed intact without difficulty. The patient was instructed to remove the dressing after 24 hours. Contraceptive plans unsure- condom use encouraged MARIO Powell Courtney, APRN.CNM 05/08/2025 9:29 AM Signed Here are some links for wonderful Providers here in the community and surrounding areas. Do not hesitate to contact their offices, many are offering virtual visits during this time. 8-222-6-KGMW1OEIL - [facility] Mental Health Hotline If you are in suicidal crisis, please call or text 5-431-070-TALK ( ) or visit the National Suicide Prevention Lifeline website. mchb.rust[place].gov [facility] Psychology, Psychiatry, Counseling Connect with therapist/ can do virtual visits [phone] Referral to the [facility] To schedule an appointment, please call the Center for Behavioral Health Appointment Line: [phone] option 1 [facility] [place] [address] [place] [address] [address] [place] [address] [facility] [address] [place] [address] [facility] [address] [place] [address] Monica Marshall MD [address] [place] [address] [facility] [address] [facility], [address] [place] [address] [facility] [address] [place] [address] [facility] [place] / [place] [phone]/ [phone] [facility] [address] [facility] [address] [facility] [phone] [facility] [place] / [place] [phone] [facility] [address] [place] [address]/ [place] [phone] KARL Pavon, CLC [facility] Workshops, telehealth and at home visits. [phone] [facility] counseling lyme 20 locations [place], [place], [place], [place], [place], [place], [place], [facility], [place], [place], [place], [place], [place], [place], [facility], [place], [place] ,[facility], [place], [place],[facility], [facility], [place], [facility], [facility], [place] www.jer[facility] university medical centerWantreez [facility] [place].[employer] [phone] Psychotherapy resources outside of [facility] are listed below [facility] WARREN Piña, CONSUELO-S [phone] [email or web address] [address] [place] [phone] *Trauma therapy, EMDR, in person or virtual visit. Accepts some insurances. [employer] [phone] [facility] [place], [place] [address] [facility] Web: [email or web address] (more content not included)... Normal [facility] CNNURSEon 03-14-2025 CNNURSE Nurse Visit (OBGYWM) -------- MARISOL PONCE ([id number]) 5 F Date Time Provider Department 03/14/25 9:00 AM NURSE ORTHOTIC PRACTITIONER [facility] WSTR OBGYWM During your visit today, we recorded the following information about you: Unruly Dozier LPN 03/14/2025 10:57 AM Signed Patient identified by name and date of . Marisol Ponce is here for her HPV Gardasil vaccination, injection # two of the series. Patient ?No Nexplanon Gardasil injection was given without incident. See immunizations for details of immunizations administered today. VIS sheet provided: Yes Patient advised to follow up in 4 months from the 2nd injection Provider Dr Celine Light was present in office at time of injection. RENETTA Simmons Lorinda, LPN 03/14/2025 9:12 AM Signed Gardasil Gardasil is a vaccine to protect against Human Papillomavirus (HPV) types 6, 11, 16, 18, 31,33,45, 52, 58. These viruses cause cancer and precancerous lesions on the cervix (opening between vagina and uterus), in the vagina and on the vulva (skin around the outside of the vagina) as well as genital warts. The vaccine cannot cause these diseases and cannot treat them if already present. Gardasil works best if given before contact with HPV. Most people are exposed to HPV soon after starting sexual activity. The vaccine is recommended between the ages of 9 and 45. Gardasil does not protect against all strains of HPV. Women who receive the vaccine still need to have regular pelvic exams and cervical cancer screening with the pap smear. You should ask your doctor if Gardasil is right for you if you have a weakened immune system, a bleeding disorder, plan to become soon or have a current illness causing fever. Gardasil is not recommended for women. You should be sure your doctor is aware of any allergies you have and all medications and herbal supplements you take. Gardasil is given to those ages 9-14 in 2 doses at 0 and 8 months. In ages 15-45, three injections are given at 0,2,6 months. Common side effects include pain, redness, itching and swelling at the injection site, nausea, fever, dizziness and fainting. Rare but potentially serious reactions have been reported. These include allergic reaction, swollen glands, joint and muscle pain, weakness and Guillain-[place] syndrome. Allergies As of Date: 03/14/2025 Noted Allergy Reaction FD AND C RED NO.40 01/27/2016 8 - GI Upset Date Reviewed: 03/13/2025 Reviewed by: Unruly Dozier LPN - Fully Assessed Reason for Visit: Gardasil Injection [1654] Primary Visit Diagnosis:Need for prophylactic vaccination/inoculation against viral disease [Z23] Prescriptions as of 03/14/2025 - fluticasone (FLONASE) 50 mcg/actuation nasal spray Use 2 sprays in each nostril once daily. - meloxicam (MOBIC) 15 mg tablet Take 1 tablet by mouth once daily. - etonogestrel (NEXPLANON) subdermal implant 68 mg 1 Each by SUBDERMAL route as directed. Problem List As Of Date 03/14/2025 Noted Resolved Generalized anxiety disorder [F41.1] 06/01/2023 Diagnosed: 06/01/2023 ADHD (attention deficit hyperactivity disorder)*07/08/2015 Diagnosed: 06/01/2023 Supervision of high risk in third tri*09/07/2023 08/09/2024 History of section [Z98.891] 08/09/2024 Other instructions from your clinician: Gardasil Gardasil is a vaccine to protect against Human Papillomavirus (HPV) types 6, 11, 16, 18, 31,33,45, 52, 58. These viruses cause cancer and precancerous lesions on the cervix (opening between vagina and uterus), in the vagina and on the vulva (skin around the outside of the vagina) as well as genital warts. The vaccine cannot cause these diseases and cannot treat them if already present. Gardasil works best if given before contact with HPV. Most people are exposed to HPV soon after starting sexual activity. The vaccine is recommended between the ages of 9 and 45. Gardasil does not protect against all strains of HPV. Women who receive the vaccine still need to have regular pelvic exams and cervical cancer screening with the pap smear. You should ask your doctor if Gardasil is right for you if you have a weakened immune system, a bleeding disorder, plan to become soon or have a current illness causing fever. Gardasil is not recommended for women. You should be sure your doctor is aware of any allergies you have and all medications and herbal supplements you take. Gardasil is given to those ages 9-14 in 2 doses at 0 and 8 months. In ages 15-45, three injections are given at 0,2,6 months. Common side effects include pain, redness, itching and swelling at the injection site, nausea, fever, dizziness and fainting. Rare but potentially serious reactions have been reported. These include allergic reaction, swollen glands, joint and muscle pain, weakness and Guillain-B (more content not included)... Normal [facility] 03-14-2025 CNPN Telephone (OBGYWM) -------- MARISOL PONCE ([id number]) 5 F Date Time Provider Department 03/14/25 JUDY JOHNSON OBGYWM During your visit today, we recorded the following information about you: Myla Garcia RN 03/14/2025 8:46 AM Signed Please file HPV vaccine order for nurse visit today. She saw AT yesterday, but orders placed cannot be released d/t future dates that were placed with it. ROHITH Giang Karmon, MD 03/14/2025 9:08 AM Signed Filed Crista Hung MD Allergies As of Date: 03/14/2025 Noted Allergy Reaction FD AND C RED NO.40 01/27/2016 8 - GI Upset Date Reviewed: 03/13/2025 Reviewed by: Unruly Dozier LPN - Fully Assessed Reason for Visit: Orders [681] Primary Visit Diagnosis:Need for prophylactic vaccination/inoculation against viral disease [Z23] Order(s):HPV VACCINE, 9-VALENT (GARDASIL 9) [[id number]] Order #: [id number] Prescriptions as of 03/14/2025 - fluticasone (FLONASE) 50 mcg/actuation nasal spray Use 2 sprays in each nostril once daily. - meloxicam (MOBIC) 15 mg tablet Take 1 tablet by mouth once daily. - etonogestrel (NEXPLANON) subdermal implant 68 mg 1 Each by SUBDERMAL route as directed. Problem List As Of Date 03/14/2025 Noted Resolved Generalized anxiety disorder [F41.1] 06/01/2023 Diagnosed: 06/01/2023 ADHD (attention deficit hyperactivity disorder)*07/08/2015 Diagnosed: 06/01/2023 Supervision of high risk in third tri*09/07/2023 08/09/2024 History of section [Z98.891] 08/09/2024 Encounter Status:Closed by MYLA GARCIA on 03/14/25 Normal [facility] BACTERIAL VAGINOSIS NAATon 0 03-13-2025 Lactobacillus crispatus+gasseri+jense logan + Gardnerella vaginalis + Atopobium vaginae rRNA SOWMYA+probe Ql (Vag fld) Not detected Normal Not detected [facility] Comment on above: Order Comment: Speci men Type: SWAB Ordering Facility: [facility] Address: [address] [place] [address] Performed By: #### 3 [id number], BVAMP #### [facility] CLIA [id number] [address] [place] [address] [place] [address] [place] C. trachomatis+N. gonorrhoea e DNA SOWMYA+probe Ql (Unsp spec)on 03-13-2025 C. trachomatis rRNA SOWMYA+probe Ql (Unsp spec) Not detected Normal Not detected [facility] Comment on above: Order Comment: Speci men Type: SWAB Ordering Facility: [facility] Address: [address] [place] [address] Performed By: #### 3 6902-5, BVAMP #### [facility] CLIA [id number] [address] [place] [address] [place] N. gonorrhoeae rRNA SOWMYA+probe Ql (Unsp spec) Not detected Normal Not detected [facility] Comment on above: Order Comment: Speci men Type: SWAB Ordering Facility: [facility] Address: [address] [place] [address] Performed By: #### 3 6902-5, BVAMP #### [facility] CLIA [id number] [address] [place] [address] [place] ROXANN/TRICHOMONAS NAATon 0 03-13-2025 C. glabrata RNA SOWMYA+probe Ql (Vag fld) Not detected Normal Not detected [facility] Comment on above: Order Comment: Speci men Type: SWAB Ordering Facility: [facility] Address: [address] [place] [address] Performed By: #### 3 6902-5, BVAMP #### [facility] CLIA [id number] [address] [place] [address] [place] Roxann sp DNA SOWMYA+probe Ql (Vag fld) Not detected Normal Not detected [facility] Comment on above: Order Comment: Speci men Type: SWAB Ordering Facility: [facility] Address: [address] [place] [address] Result Comment: The Roxann species group target includes C. albicans, C. tropicalis, C. parapsilosis, and C. dubliniensis. Performed By: #### 3 6902-5, BVAMP #### [facility] CLIA [id number] [address] [place] [address] [place] T. vaginalis DNA SOWMYA+probe Ql (Unsp spec) Not detected Normal Not detected [facility] Comment on above: Order Comment: Speci men Type: SWAB Ordering Facility: [facility] Address: [address] [place] [address] Performed By: #### 3 6902-5, BVAMP #### [facility] CLIA [id number] [address] [place] [address] STATES OF [facility] CNOVon 03-13-2025 CNOV Office Visit (OBGYWM ) -------- MARISOL PONCE ([id number]) 5 F Date Time Provider Department 03/13/25 8:50 AM DAYRON CAO OBGYWM During your visit today, we recorded the following information about you: Blood pressure Weight Last Period 126/72 72.2 kg 02/24/25 Dayron Cao MD 03/13/2025 10:17 AM Signed Used Equipment Sales Representative provided by Unruly Dozier LPN. Marisol Ponce is a 19 year old female who presents for problem visit vaginal odor, discharge unprotected intercourse ~ 03/01/25, symptoms x1 wk. 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: Inspector [employer]ision Assembly History Comments: Sexual Activity: Yes; Male Contraception: Implant Menstrual Tracking History Flowsheet Row Office Visit from 02/13/2025 in OB/Gynecology Period Cycle (Days) 6 Period Duration (Days) 5 Menstrual Flow Moderate PAST MEDICAL HISTORY Diagnosis Date ADHD (attention deficit hyperactivity disorder), combined type 07/08/2015 Generalized anxiety disorder 06/01/2023 PAST SURGICAL HISTORY Procedure Laterality Date SECTION HX 12/2023 NEXPLANON INSERTION 02/22/2024 Placed in left arm NONE FAMILY HISTORY Adopted: Yes Problem Relation Age of Onset No Known Problems Mother No Known Problems Father Social History Tobacco Use Smoking status: Never Smokeless tobacco: Never Vaping Use Vaping status: Never Used Substance Use Topics Alcohol use: Not Currently Drug use: Never Current Outpatient Medications Medication Sig fluticasone (FLONASE) 50 mcg/actuation nasal spray Use 2 sprays in each nostril once daily. meloxicam (MOBIC) 15 mg tablet Take 1 tablet by mouth once daily. etonogestrel (NEXPLANON) subdermal implant 68 mg 1 Each by SUBDERMAL route as directed. No current facility-administered medications for this visit. Allergies As of Date: 03/13/2025 Allergen Noted Reaction FD AND C RED NO.40 01/27/2016 GI Upset Fully Assessed 02/28/2025 REVIEW OF SYSTEMS Abdomen: No bloating, early satiety, indigestion, or increased flatulence. No abdominal pain, nausea, vomiting, diarrhea, or constipation. Bladder: No dysuria, gross hematuria, urinary frequency, urinary urgency, or incontinence. Breast: No breast lumps, nipple d/c, overlying skin changes, redness or skin retraction. Expanded ROS: N/A Allergies and current medication updated:Yes SENSITIVE EXAM: The sensitive examination was discussed with the Patient or Patient's Authorized Cashier. As applicable, any other physician, advance practice provider, medical student, or other health professional student that will be observing or involved in the sensitive examination for educational or training purposes was discussed with the Patient or Authorized Cashier. The Patient or Authorized Cashier has agreed to proceed with the sensitive examination. (Sensitive examination includes inspection and/or palpation of the breasts, pelvis, prostate and anorectal regions). EXAM: LMP 02/28/2025 GENERAL: pleasant, female in no apparent distress ABDOMEN: soft, non-tender, and no masses PELVIC: external genitalia normal, normal Bartholin's glands, urethra, [place]'s glands, no vulvar lesions, no cervical lesions, good vaginal support, physiologic discharge present, normal appearing perineal body and perianal region, Retained Tampon BIMANUAL: uterus normal size, shape and consistency, no adnexal masses, and non-tender ASSESSMENT AND PLAN: Assessment AND Plan Vaginal odor Orders: ROXANN/TRICHOMONAS NAAT BACTERIAL VAGINOSIS NAAT GONORRHEA/CHLAMYDIA NAAT Screen for STD (sexually transmitted disease) Orders: GONORRHEA/CHLAMYDIA NAAT TRICHOMONAS VAGINALIS NAAT Retained tampon, subsequent encounter Tampon removed Unprotected intercourse STI screening submitted. ftft >30m Dayron Cao MD [facility], [place] 03/13/2025 10:20 AM Signed Gardasil Gardasil is a vaccine to protect against Human Papillomavirus (HPV) types 6, 11, 16, 18, 31,33,45, 52, 58. These viruses cause cancer and precancerous lesions on the cervix (opening between vagina and uterus), in the vagina and on the vulva (skin around the outside of the vagina) as well as genital warts. The vaccine cannot cause these diseases and cannot treat them if already present. Gardasil works best if given before contact with HPV. Most people are exposed to HPV soon after starting sexual activity. The vaccine is recommended between the ages of 9 and 45. Gardasil does not protect against all strains of HPV. Women who receive the vaccine still need to have regular pelvic exams and cervical cancer screening with the pap smear. You should ask your doctor if Gardasil is right fo (more content not included)... Normal [facility] CNOVon 02-28-2025 CNOV Office Visit (UCWSTR ) -------- MARISOL PONCE ([id number]) 5 F Date Time Provider Department 02/28/25 10:45 AM SEBLE BOALNOS [facility] During your visit today, we recorded the following information about you: Temperature Pulse Respiration Blood pressure 100.2 degrees 110/minute 22/minute 116/80 Weight Last Period 74 kg 02/28/25 Seble Bolanos APRN.[facility] 02/28/2025 11:16 AM Signed [facility] Subjective Marisol Ponce is a 19 year old female. Patient presents with: Nasal Congestion: Cough, dry, fever, sinus pressure and pain, headache on and off, AM sore throat goes away, chest tightness in upper chest x 4 days Nasal Congestion Associated symptoms include chills, congestion and sinus pressure. Pertinent negatives include no coughing or shortness of breath. Patient is a 19-year-old female that presents with low-grade fever sinus congestion, dry cough and sore throat that started about 4 days ago. She denies any chest pain or shortness of breath no history of asthma or chronic upper respiratory symptoms. She is taking DayQuil and NyQuil with some relief. She states she missed the last couple of 2 days of work. As she has been increased fatigue and sleeping more. She states her daughter was recently sick but got over pretty quickly. Review of Systems Constitutional: Positive for chills, fatigue and fever. HENT: Positive for congestion, sinus pressure and sinus pain. Eyes: Negative for discharge and itching. Respiratory: Negative for cough, chest tightness, shortness of breath and wheezing. Cardiovascular: Negative for chest pain and leg swelling. Gastrointestinal: Negative for abdominal pain, diarrhea, nausea and vomiting. Skin: Negative for rash. Objective BP 116/80 Pulse 110 Temp 37.9 ?C (100.2 ?F) Resp 22 Wt 74 kg (163 lb 2.3 oz) LMP 02/28/2025 (Exact Date) SpO2 96% No BMI 28.76 kg/m? Physical Exam Vitals and nursing note reviewed. Constitutional: Appearance: Normal appearance. HENT: Head: Normocephalic and atraumatic. Cardiovascular: Rate and Rhythm: Normal rate and regular rhythm. Pulses: Normal pulses. Heart sounds: Normal heart sounds. Pulmonary: Effort: Pulmonary effort is normal. Breath sounds: Normal breath sounds. Neurological: Mental Status: She is alert. {ASSESSMENT/PLAN: 1. Viral URI with cough - ICD9: 465.9, ICD10: J06.9 - Discussed viral etiology and rationale for treatment. - Symptomatic treatment with prn analgesia - Supportive care with fluids and rest - The patient may also use OTC decongestants prn, warm salt water gargles, throat lozenges and/or OTC throat spray as needed, and nasal saline gtts and suction prn. - BENZONATATE 100 MG CAPSULE - FLUTICASONE PROPIONATE 50 MCG/ACTUATION NASAL SPRAY,SUSPENSION Seble Bolanos APRN.SHELL TRIM TOOL SETTER History and Record Review External record(s) reviewed: prior outpatient record. Findings from review of outpatient records: medical history reviewed Differential Diagnoses - Viral upper respiratory - Pneumonia - acute dehydration - Streptococcal pharyngitis patient is mass in the Additional Tests or Interventions The following testing was considered but ultimately not selected after discussion with patient/family: chest xray not clinically The following medication(s) were considered but not ordered: non bacterial presentation Disposition The patient was discharged. OTC Medications were advised: Flonase, decongestants, tylenol and ibuprofen Patient is well-appearing nontoxic in no acute respiratory distress. She presents with a viral upper respiratory infection. Patient placed on Flonase Tessalon and continue decongestants as needed [id number] no concern for pneumonia, sinusitis, streptococcal pharyngitis or bacterial process today. Patient given work note for the last 2 days. Discussed continue symptom management which treat with any worsening symptoms such as fevers not relieved by Tylenol ibuprofen, chest pain congestion, or the inability tolerating fluids. Patient verbalized understanding and agreement with this plan patient discharged home. Seble Bolanos APRN.SHELL TRIM TOOL SETTER 02/28/2025 11:08 AM Signed Patient presents with: Nasal Congestion: Cough, dry, fever, sinus pressure and pain, headache on and off, AM sore throat goes away, chest tightness in upper chest x 4 days I recommend you follow up with your Primary Care Provider (Physician, Nurse Practitioner, or Physician Poly Operator). YOU SHOULD SEEK MEDICAL ATTENTION IMMEDIATELY AT THE NEAREST EMERGENCY DEPARTMENT IF ANY OF THE FOLLOWING OCCURS Call 911 if you have chest pain, heaviness or discomfort Fever (temperature higher than 100.4? F / 38? C) and it doesn't go away or gets worse after 2-3 days of antibiotics Unusual or increasing pain Lightheadedness Feeling sicker at any time or not getting better as expected (more content not included)... Normal [facility] C. trachomatis+N. gonorrhoea e DNA SOWMYA+probe Ql (Unsp spec)on 02-13-2025 C. trachomatis rRNA SOWMYA+probe Ql (Unsp spec) Not detected Normal Not detected [facility] Comment on above: Order Comment: Speci men Type: SWAB Ordering Facility: [facility] Address: [address] [place] [address] Performed By: #### 3 6902-5, BVAMP #### [facility] CLIA [id number] [address] [place] [address] [place] N. gonorrhoeae rRNA SOWMYA+probe Ql (Unsp spec) Not detected Normal Not detected [facility] Comment on above: Order Comment: Speci men Type: SWAB Ordering Facility: [facility] Address: [address] [place] [address] Performed By: #### 3 6902-5, BVAMP #### [facility] CLIA [id number] [address] [place] [address] OF [place] CNOVon 02-13-2025 CNOV Office Visit (OBGYWM ) -------- MARISOL PONCE ([id number]) 5 F Date Time Provider Department 02/13/25 10:45 AM RUTH RAMIREZ OBGYWM During your visit today, we recorded the following information about you: Blood pressure Weight Last Period 124/72 75.8 kg 01/15/25 Ruth Ramirez APRN.CNM 02/13/2025 11:33 AM Signed Patient 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 Marisol is a 19 year old who presents for an annual gynecologic exam without complaints. Reports that irregular bleeding after Nexplanon has resolved. Presents: with partner Still get period: Yes, LMP 01/09/2025 cycles 28-30 with 7 days flow. 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 [employer] History Comments: Sexual Activity: Yes; Male Contraception: Implant Menstrual Tracking History Flowsheet Row Office Visit from 02/13/2025 in OB/Gynecology Period Cycle (Days) 6 Period Duration (Days) 5 Menstrual Flow Moderate PAST MEDICAL HISTORY Diagnosis Date ADHD (attention deficit hyperactivity disorder), combined type 07/08/2015 Generalized anxiety disorder 06/01/2023 PAST SURGICAL HISTORY Procedure Laterality Date SECTION HX 12/2023 NEXPLANON INSERTION 02/22/2024 Placed in left arm NONE FAMILY HISTORY Adopted: Yes Problem Relation Age of Onset No Known Problems Mother No Known Problems Father SOCIAL HISTORY Social History Tobacco Use Smoking status: Never Smokeless tobacco: Never Vaping Use Vaping status: Never Used Substance Use Topics Alcohol use: Not Currently Drug use: Never REVIEW OF SYSTEMS Abdomen: No bloating, early satiety, indigestion, or increased flatulence. No abdominal pain, nausea, vomiting, diarrhea, or constipation. Bladder: No dysuria, gross hematuria, urinary frequency, urinary urgency, or incontinence. Breast: No breast lumps, nipple d/c, overlying skin changes, redness or skin retraction. Allergies and current medication updated:Yes SENSITIVE EXAM: The sensitive examination was discussed with the Patient or Patient's Authorized Cashier. As applicable, any other physician, advance practice provider, medical student, or other health professional student that will be observing or involved in the sensitive examination for educational or training purposes was discussed with the Patient or Authorized Cashier. The Patient or Authorized Cashier has agreed to proceed with the sensitive examination. (Sensitive examination includes inspection and/or palpation of the breasts, pelvis, prostate and anorectal regions). EXAM: BP 124/72 Wt 167 lb 3.2 oz (75.8kg) LMP 01/15/2025 GENERAL: pleasant, in no apparent distress HEENT: Normocephalic, atraumatic, mucus membranes moist, and no lesions NECK: Supple, full range of motion, and no adenopathy DERMATOLOGY: Normal and without lesions BREAST: soft, non-tender, symmetric, no dominant mass, normal nipple-areolar complex, no lymphadenopathy, no nipple discharge, and fibrocystic changes CHEST: Normal inspiratory effort ABDOMEN: soft, non-tender, and no masses PELVIC: external genitalia normal, normal Bartholin's glands, urethra, [place]'s glands, no vulvar lesions, no cervical lesions, good vaginal support, physiologic discharge present, normal appearing perineal body and perianal region BIMANUAL: uterus normal size, shape and consistency, no adnexal masses, non-tender, and no cervical motion tenderness NEURO: alert and oriented x3,exam grossly non-focal EXTREMITIES: normal ASSESSMENT/PLAN: 1) Health maintenance: Pap starting at the age of 21. Safe sex practices reviewed. 2) Contraception: Nexplanon. Contraceptive options reviewed and information provided. 3) STD screening: Accepted STD check for Gonorrhea and Chlamydia. 4) Patient desires removal of Nexplanon next year to try for . Follow up one year or sooner as needed. MARIO Powell Lorinda, LPN 02/13/2025 11:43 AM Signed Addended by: UNRULY DOZIER on: 02/13/2025 11:43 AM Modules accepted: Orders Ruth Ramirez APRN.CNM 02/13/2025 4:36 PM Signed Addended by: RUTH ARMIREZ on: 02/13/2025 04:36 PM Modules accepted: Orders Allergies As of Date: 02/13/2025 Noted Allergy Reaction FD AND C RED NO.40 01/27/2016 8 - GI Upset Date Reviewed: 02/13/2025 Reviewed by: Unruly Dozier LPN - Fully Assessed Reason f (more content not included)... Normal [facility] TRICHOMONAS VAGINALIS NAATon 02-13-2025 T. vaginalis DNA SOWMYA+probe Ql (Unsp spec) Not detected Normal Not detected [facility] Comment on above: Order Comment: Speci men Type: BLOOD SPECIMEN Ordering Facility: [facility] Address: [address] [place] [address] Performed By: #### 5 5454-3 #### [facility] CLIA [id number] [address] [place] [address] [place] [address] [place] CNOVon 01-14-2025 CNOV Office Visit (ORTHWS ) -------- MARISOL PONCE ([id number]) 5 F Date Time Provider Department 01/14/25 3:00 PM PAKO NEWTON During your visit today, we recorded the following information about you: Pako Newton MD 02/04/2025 11:16 PM Signed Pako Newton MD Department of Orthopaedics Orthopaedics [address] [facility] [address] Dept: [phone] Dept January 14, 2025 CHIEF COMPLAINT: New and Knee Pain of the Right Knee HPI Patient here for evaluation right knee pain. States her pain started about a month ago. Her pain has gotten better since she made the appointment. Patient states her pain is around the knee cap. No specific injury. She does continue to have some swelling in knee. 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 Patient states her knee cap will pop at times. Tried taking Ibuprofen and Tylenol for the pain and did not help with the pain. X-rays done today. ASSESSMENT: M76.51 Patellar tendonitis of right knee (primary encounter diagnosis) PLAN: she would like to try some NSAIDs. SOme PT if needed. FOLLOW UP INSTRUCTIONS: As needed OBJECTIVE: Ms. Marisol Ponce is a pleasant 19 year old in no apparent distress. Gen:LMP 08/23/2024 nl development, non obese, no deformities ENT: Normocephalic, normal hearing, moist mucosa CV: Pulses:DP/PT= 2+ and symmetric, capillary refill < 2 secs, no peripheral edema/varicosities Skin: no rash, bruising or lesions. Good turgor. Psych: cooperative and appropriate, alert and oriented x 3, good mood and affect. Musculoskeletal: Good ROM. TTP at the infra-patellar tendon. No effusion. IMAGING: IMPRESSION: Normal Dehydrogenation Operator: DALIA Transcribe Date/Time: Jan 16 2025 8:51A Dictated by : ANABELL BUCK MD This examination was interpreted and the report reviewed and electronically signed by: ANABELL BUCK MD on Jan 16 2025 8:51AM EST Results-Findings * * *Final Report* * * DATE OF EXAM: Jan 14 2025 2:52PM [id number] [id number] - XR KNEE 4V AP/PA BOTH+LAT/ASHU RT / PROCEDURE REASON: Right knee pain, unspecified chronicity * * * * Physician Interpretation * * * * PROCEDURE: Right knee INDICATION: Right knee pain, unspecified chronicity .PT STATES STANDS ALL DAY AT WORK RIGHT KNEE FEELS TIGHT NO INJURY TECHNIQUE: XR KNEE 4V AP/PA BOTH+LAT/ASHU RT COMPARISON: None FINDINGS: No fracture, dislocation or osseous lesion. Joint spaces are maintained. No joint effusion. Supporting Subjective Information Below: Past Medical History: PAST MEDICAL HISTORY Diagnosis Date ADHD (attention deficit hyperactivity disorder), combined type 07/08/2015 Generalized anxiety disorder 06/01/2023 Past Surgical History: PAST SURGICAL HISTORY Procedure Laterality Date SECTION HX 12/2023 NEXPLANON INSERTION 02/22/2024 Placed in left arm NONE Family History: FAMILY HISTORY Adopted: Yes Problem Relation Age of Onset No Known Problems Mother No Known Problems Father Social History: Social History Tobacco Use Smoking status: Never Smokeless tobacco: Never Vaping Use Vaping status: Never Used Substance Use Topics Alcohol use: Not Currently Drug use: Never Medications: Current Outpatient Medications Medication Sig etonogestrel (NEXPLANON) subdermal implant 68 mg 1 Each by SUBDERMAL route as directed. No current facility-administered medications for this visit. Allergies: Fd And C Red No.40 ROS: General (negative for fatigue, malaise, weight loss/gain) HEENT (negative for headache, earache, recent vision changes, sinus pain, sore throat) Respiratory (no recent shortness of breath, hemoptysis) CV (negative for chest tightness, palpitations) Musculoskeletal (see HPI) Psych (no depression, anxiety) Pako Newton MD Allergies As of Date: 01/14/2025 Noted Allergy Reaction FD AND C RED NO.40 01/27/2016 8 - GI Upset Date Reviewed: 01/14/2025 Reviewed by: Pako Newton MD - Fully Assessed Reason for Visit: New [348258] Knee Pain [132] Primary Visit Diagnosis:Patellar tendonitis of right knee [M76.51] Order(s):meloxicam (MOBIC) 15 mg tabletTake 1 tablet by mouth once daily.Disp: 30 tabletRfl: 1 Prescriptions as of 02/04/2025 - meloxicam (MOBIC) 15 mg tablet Take 1 tablet by mouth once daily. - etonogestrel (NEXPLANON) subdermal implant 68 mg 1 Each by SUBDERMAL route as directed. Problem List As Of Date 01/14/2025 Noted Resolved Generalized anxiety disorder [F41.1] 06/01/2023 Diagnosed: 06/01/2023 ADHD (attention deficit hyperactivity disorder)*07/08/2015 Diagnosed: 06/01/2023 Supervision of high risk in third tri*09/07/2023 08/09/2024 History of section [Z98.891] 08/09/2024 Prescriptions ordered this encounter Disp Refills Start End MELOXICAM 15 MG TABLET 30 t* 1 01/14/2025 Route: ORAL Sig: Ta (more content not included)... Normal [facility] XR KNEE 4V AP/PA BOTH+LAT/ME R RTon 01-14-2025 XR KNEE 4V AP/PA BOTH+LAT/ASHU RT * * *Final Report* * * DATE OF EXAM: Jan 14 2025 2:52PM WRX 5203 - XR KNEE 4V AP/PA BOTH+LAT/ASHU RT / PROCEDURE REASON: Right knee pain, unspecified chronicity * * * * Physician Interpretation * * * * PROCEDURE: Right knee INDICATION: Right knee pain, unspecified chronicity .PT STATES STANDS ALL DAY AT WORK RIGHT KNEE FEELS TIGHT NO INJURY TECHNIQUE: XR KNEE 4V AP/PA BOTH+LAT/ASHU RT COMPARISON: None FINDINGS: No fracture, dislocation or osseous lesion. Joint spaces are maintained. No joint effusion. IMPRESSION: Normal Dehydrogenation Operator: PSCB Transcribe Date/Time: Jan 16 2025 8:51A Dictated by : ANABELL BUCK MD This examination was interpreted and the report reviewed and electronically signed by: ANABELL BUCK MD on Jan 16 2025 8:51AM EST [id number] Normal [facility] CNOVon 08-28-2024 CNOV Office Visit (UCWSTR ) -------- MARISOL PONCE ([id number]) 5 F Date Time Provider Department 08/28/24 10:45 AM FLAKO HUNG [facility] During your visit today, we recorded the following information about you: Temperature Pulse Respiration Blood pressure 98 degrees 60/minute 20/minute 133/82 Weight Last Period 70.9 kg 08/23/24 Flako Hung APRN.SHELL TRIM TOOL SETTER 08/28/2024 10:54 AM Signed Subjective Female with complaints of circular rash on left upper thigh. Patient says she has had it about 2 weeks. Patient says she does have cats. Patient denies any other symptoms associated with it such as fever chills nausea vomiting muscle aches sore throat. The history is provided by the patient. No english language learner teacher was used. Rash Review of Systems Constitutional: Negative. Skin: Positive for rash. Objective Physical Exam Constitutional: Appearance: Normal appearance. Pulmonary: Effort: Pulmonary effort is normal. Skin: Comments: Patient does have erythematous dry scaly circular rash with normal skin in the middle. Consistent with a ringworm. Neurological: Mental Status: She is alert. PAST MEDICAL HISTORY Diagnosis Date ADHD (attention deficit hyperactivity disorder), combined type 07/08/2015 Generalized anxiety disorder 06/01/2023 PAST SURGICAL HISTORY Procedure Laterality Date SECTION HX 12/2023 NEXPLANON INSERTION 02/22/2024 Placed in left arm NONE ALLERGIES Fd And C Red No.40 MEDICATIONS etonogestrel (NEXPLANON) subdermal implant 68 mg 1 Each by SUBDERMAL route as directed. clotrimazole (LOTRIMIN) 1 % cream Apply 1 application to affected area two times a day for 14 days. Can be used 2-4 weeks...... use for 3 days after area is completley healed up. FAMILY HISTORY Adopted: Yes Problem Relation Age of Onset No Known Problems Mother No Known Problems Father Social History Tobacco Use Smoking status: Never Smokeless tobacco: Never Vaping Use Vaping status: Never Used Substance Use Topics Alcohol use: Not Currently Drug use: Never ASSESSMENT/PLAN: 1. Ringworm - ICD9: 110.9, ICD10: B35.9 - CLOTRIMAZOLE 1 % TOPICAL CREAM Was educated about proper use of medication and supportive therapies. Patient was educated to check all animals at home. Patient was okay with this care plan and will follow-up if signs and symptoms seem to be getting worse not better. Flako Hung APRN.SHELL TRIM TOOL SETTER Allergies As of Date: 08/28/2024 Noted Allergy Reaction FD AND C RED NO.40 01/27/2016 8 - GI Upset Date Reviewed: 08/28/2024 Reviewed by: Holly Sapp LPN - Fully Assessed Reason for Visit: Rash [1087] Cmt: Left upper thigh area x 1 round area, x 2 weeks Primary Visit Diagnosis:Ringworm [B35.9] Order(s):clotrimazole (LOTRIMIN) 1 % creamApply 1 application to affected area two times a day for 14 days. Can be used 2-4 weeks...... use for 3 days after area is completley healed up.Disp: 28 gRfl: 0 Prescriptions as of 08/28/2024 - clotrimazole (LOTRIMIN) 1 % cream Apply 1 application to affected area two times a day for 14 days. Can be used 2-4 weeks...... use for 3 days after area is completley healed up. - etonogestrel (NEXPLANON) subdermal implant 68 mg 1 Each by SUBDERMAL route as directed. Problem List As Of Date 08/28/2024 Noted Resolved Generalized anxiety disorder [F41.1] 06/01/2023 Diagnosed: 06/01/2023 ADHD (attention deficit hyperactivity disorder)*07/08/2015 Diagnosed: 06/01/2023 Supervision of high risk in third tri*09/07/2023 08/09/2024 History of section [Z98.891] 08/09/2024 Prescriptions ordered this encounter Disp Refills Start End CLOTRIMAZOLE 1 % TOPICAL CREAM 28 g 0 08/28/2024 09/11/2024 Route: TOPICAL Sig: Apply 1 application to affected area two times a day for 14 days. Can be used 2-4 weeks...... use for 3 days after area is completley healed up. Encounter Status:Closed by FLAKO HUNG on 08/28/24 Normal [facility] CBC panel Auto (Bld)on 08-09 Erythrocyte distribution width (RBC) [Ratio] 13.7 % 11.5 - 15.0 % [facility] Hematocrit (Bld) [Volume fraction] 41.5 % 36.0 - 46.0 % [facility] Hemoglobin (Bld) [Mass/Vol] 13.6 g/dL 11.5 - 15.5 g/dL [facility] Interpretation and review of laboratory results Normal [facility] MCH (RBC) [Entitic mass] 28.2 pg 26.0 - 34.0 pg [facility] MCHC (RBC) [Mass/Vol] 32.8 g/dL 30.5 - 36.0 g/dL [facility] MCV (RBC) [Entitic vol] 85.9 fL 80.0 - 100.0 fL [facility] Nucleated RBC (Bld) [#/Vol] NINF [facility] Platelet mean volume (Bld) [Entitic vol] 11.0 fL 9.0 - 12.7 fL [facility] Platelets (Bld) [#/Vol] 238 10*3/uL [facility] RBC (Bld) [#/Vol] 4.83 10*6/uL 3.90 - 5.2 0 m/uL [facility] WBC (Bld) [#/Vol] 8.04 10*3/uL [facility] Erythrocyte distribution width (RBC) [Ratio] 13.7 % Normal 11.5-15.0 [facility] Comment on above: Order Comment: Speci men Type: SWAB Ordering Facility: [facility] Address: [address] [place] [address] Performed By: #### 3 6902-5, BVAMP #### [facility] CLIA [id number] [address] [place] [address] [place] Hematocrit (Bld) [Volume fraction] 41.5 % Normal 36.0-46.0 [facility] Comment on above: Order Comment: Speci men Type: SWAB Ordering Facility: [facility] Address: [address] [place] [address] Performed By: #### 3 6902-5, BVAMP #### [facility] CLIA [id number] [address] [place] [address] [place] Hemoglobin (Bld) [Mass/Vol] 13.6 g/dL Normal 11.5-15.5 [facility] Comment on above: Order Comment: Speci men Type: SWAB Ordering Facility: [facility] Address: [address] [place] [address] Performed By: #### 3 6902-5, BVAMP #### [facility] CLIA [id number] [address] [place] [address] [place] MCH (RBC) [Entitic mass] 28.2 pg Normal 26.0-34.0 [facility] Comment on above: Order Comment: Speci men Type: SWAB Ordering Facility: [facility] Address: [address] [place] [address] Performed By: #### 3 6902-5, BVAMP #### [facility] CLIA [id number] [address] [place] [address] [place] MCHC (RBC) [Mass/Vol] 32.8 g/dL Normal 30.5-36.0 [facility] Comment on above: Order Comment: Speci men Type: SWAB Ordering Facility: [facility] Address: [address] [place] [address] Performed By: #### 3 6902-5, BVAMP #### [facility] CLIA [id number] [address] [place] [address] [place] MCV (RBC) [Entitic vol] 85.9 fL Normal 80.0-100.0 [facility] Comment on above: Order Comment: Speci men Type: SWAB Ordering Facility: [facility] Address: [address] [place] [address] Performed By: #### 3 6902-5, BVAMP #### [facility] CLIA [id number] [address] [place] [address] [place] Nucleated RBC (Bld) [#/Vol] 10*3/uL Normal <0.01 [facility] Comment on above: Order Comment: Speci men Type: SWAB Ordering Facility: [facility] Address: [address] [place] [address] Performed By: #### 3 6902-5, BVAMP #### [facility] CLIA [id number] [address] [place] [address] [place] Platelet mean volume (Bld) [Entitic vol] 11.0 fL Normal 9.0-12.7 [facility] Comment on above: Order Comment: Speci men Type: SWAB Ordering Facility: [facility] Address: [address] [place] [address] Performed By: #### 3 6902-5, BVAMP #### [facility] CLIA [id number] [address] [place] [address] [place] Platelets (Bld) [#/Vol] 238 10*3/uL Normal 150-400 [facility] Comment on above: Order Comment: Speci men Type: SWAB Ordering Facility: [facility] Address: [address] [place] [address] Performed By: #### 3 6902-5, BVAMP #### [facility] CLIA [id number] [address] [place] [address] [place] RBC (Bld) [#/Vol] 4.83 10*6/uL Normal 3.90-5.20 [facility] Comment on above: Order Comment: Speci men Type: SWAB Ordering Facility: [facility] Address: [address] [place] [address] Performed By: #### 3 6902-5, BVAMP #### [facility] CLIA [id number] [address] [place] [address] [place] WBC (Bld) [#/Vol] 8.04 10*3/uL Normal 3.70-11.00 [facility] Comment on above: Order Comment: Speci men Type: SWAB Ordering Facility: [facility] Address: [address] [place] [address] Performed By: #### 3 6902-5, BVAMP #### [facility] CLIA [id number] [address] [place] [address] [place] [address] [place] [facility] CNOVon 08-09-2024 CNOV Office Visit (FMIUNI ) -------- MARISOL PONCE ([id number]) 5 F Date Time Provider Department 08/09/24 10:00 AM CAMERON BLANTON FMIUNI During your visit today, we recorded the following information about you: Temperature Pulse Blood pressure Weight 97.1 degrees 70/minute 121/82 70.1 kg Height Last Period 1.604 m 08/01/24 Cameron Blanton DO 09/30/2024 11:28 AM Signed ASSESSMENT/PLAN: 1. Routine health maintenance - ICD9: V70.0, ICD10: Z00.00 (primary diagnosis) - Counseled on healthy diet and regular exercise - Recommend vitamin containing 0.4 mg of folic acid - Follow up for annual exam in one year - COMPLETE BLOOD COUNT - COMPREHENSIVE METABOLIC PANEL - LIPID PANEL, NONFASTING - HEMOGLOBIN A1C 2. Hair loss - ICD9: 704.00, ICD10: L65.9 -She has had ongoing hair loss since having her baby in April. 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 Discussed that this typically does resolve over time. Will order thyroid hormone levels to check for hypothyroidism. Advised that if symptoms are persistent and not improving after 6 months then can consider dermatology referral. - THYROID STIMULATING HORMONE - T4 FREE/FREE THYROXINE CC: Patient presents with: Hair Loss: Pt states she noticed the last couple of months she's been losing hair and states she had a baby in December. HPI: Marisol Ponce is a 19 year old female who presents for a comprehensive problem evaluation. Current issues/concerns include: She says had a baby in December and has been losing her hair since April. She says it comes out in clumps. She does have a lot of fatigue as well. Last 4 Encounter Wt Readings: Date: Wt: 08/09/2024 70.1 kg (154 lb 8.7 oz) (85%, Z= 1.03)* 07/06/2024 66 kg (145 lb 8.1 oz) (78%, Z= 0.76)* 07/01/2024 69.2 kg (152 lb 8.9 oz) (84%, Z= 0.98)* 06/10/2024 70.2 kg (154 lb 12.2 oz) (85%, Z= 1.05)* HEALTH MAINTENANCE REVIEW: HPV Vaccine(2 - 2-dose series) due on 12/15/2019 Meningococcal B Vaccine: Consider Based On Risk(2 of 2 - Risk Bexsero 2-dose series) due on 08/16/2022 Depression Screening Never done GC (Gonorrhea) Screening (18-24) due on 06/01/2024 Chlamydia Screening (18-24) due on 06/01/2024 Influenza Vaccine(1) due on 07/01/2024 Covid-19 Vaccine(2023-25 season) Never done Gynecologic History Patient's last menstrual period was 08/01/2024 (exact date). Period Regularity: regular q 28-30 days On control: yes, nexplanon Sexually Active - Yes Abnormal Pap smears in the past - NA Abnormal breast exam or mammogram in the past - Not Applicable PATIENT HISTORY: Problem list, Past surgical history and Social Histories reviewed and updated today in the History tab of [facility]. OBJECTIVE: BP 121/82 Pulse 70 Temp (Src) 97.1 (Temporal) Ht 5' 3.15 (1.60m) Wt 154 lb 8.7 oz (70.1kg) SpO2 98% LMP 08/01/2024 BMI 27.25 kg/(m2). Physical Exam Constitutional: General: She is not in acute distress. Appearance: Normal appearance. She is normal weight. She is not ill-appearing or toxic-appearing. HENT: Head: Normocephalic and atraumatic. Right Ear: Tympanic membrane, ear canal and external ear normal. Left Ear: Tympanic membrane, ear canal and external ear normal. Nose: Nose normal. Mouth/Throat: Mouth: Mucous membranes are moist. Pharynx: No oropharyngeal exudate. Eyes: Extraocular Movements: Extraocular movements intact. Conjunctiva/sclera: Conjunctivae normal. Pupils: Pupils are equal, round, and reactive to light. Cardiovascular: Rate and Rhythm: Normal rate and regular rhythm. Pulses: Normal pulses. Heart sounds: Normal heart sounds. No murmur heard. No friction rub. No gallop. Pulmonary: Effort: Pulmonary effort is normal. Breath sounds: Normal breath sounds. No wheezing, rhonchi or rales. Abdominal: General: Abdomen is flat. Bowel sounds are normal. Palpations: Abdomen is soft. Tenderness: There is no guarding or rebound. Musculoskeletal: General: Normal range of motion. Cervical back: Normal range of motion and neck supple. Lymphadenopathy: Cervical: No cervical adenopathy. Skin: General: Skin is warm and dry. Neurological: General: No focal deficit present. Mental Status: She is alert and oriented to person, place, and time. Psychiatric: Mood and Affect: Mood normal. Behavior: Behavior normal. Thought Content: Thought content normal. Judgment: Judgment normal. Dr. Cameron Blanton, DO Allergies As of Date: 08/09/2024 Noted Allergy Reaction FD AND C RED NO.40 01/27/2016 8 - GI Upset Date Reviewed: 08/09/2024 Reviewed by: Magnolia [place] MA - Fully Assessed Reason for Visit: Hair Loss [933] Cmt: Pt states she noticed the last couple of months she's been losing hair and states she had a baby in December. Primary Visit Diagnosis:Routine health maintenance [Z00.00] Other Visit Diagnosis:Hair loss [L65.9] Order(s):THY (more content not included)... Normal [facility] Comprehensive metabolic 2000 panelon 08-09-2024 Albumin [Mass/Vol] 4.3 g/dL 3.9 - 4.9 g/dL [facility] ALP [Catalytic activity/Vol] 86 U/L 34 - 123 U/L [facility] ALT [Catalytic activity/Vol] 17 U/L 7 - 38 U/L [facility] Anion gap [Moles/Vol] 9 mmol/L 8 - 15 mmol/L [facility] AST [Catalytic activity/Vol] 18 U/L 13 - 35 U/L [facility] Bilirubin [Mass/Vol] 0.3 mg/dL 0.2 - 1 .3 mg/dL [facility] Calcium [Mass/Vol] 9.4 mg/dL 8.5 - 10. 2 mg/dL [facility] Chloride [Moles/Vol] 106 mmol/L 98 - 10 7 mmol/L [facility] CO2 [Moles/Vol] 24 mmol/L 22 - 30 mmol/L [facility] Creatinine [Mass/Vol] 0.46 mg/dL Low 0.58 - 0.96 mg/dL [facility] GFR/1.73 sq M.predicted among non-blacks MDRD (S/P/Bld) [Vol rate/Area] 142 mL/min/{1.73_m2} - PINF [facility] Comment on above: Estimated Glomerular Filtration Rate (eGFR) is calculated using the 2020 CKD-EPI creatinine equation. This equation utilizes serum creatinine, sex, and age as parameters. The creatinine assay has traceable calibration to isotope dilution-mass spectrometry. Refer to KDIGO guidelines for clinical interpretation. In patients with unstable renal function, e.g. those with acute kidney injury, the eGFR may not accurately reflect actual GFR. Glucose [Mass/Vol] 93 mg/dL 74 - 99 mg/dL [facility] Comment on above: The [place] Diab[employer] Association (ADA) provides guidance for cutoff values for fasting glucose and random glucose. The ADA defines fasting as no caloric intake for at least 8 hours. Fasting plasma glucose results between 100 to 125 mg/dL indicate increased risk for diabetes (prediabetes). Fasting plasma glucose results greater than or equal to 126 mg/dL meet the criteria for diagnosis of diabetes. In the absence of unequivocal hyperglycemia, results should be confirmed by repeat testing. In a patient with classic symptoms of hyperglycemia or hyperglycemic crisis, random plasma glucose results greater than or equal to 200 mg/dL meet the criteria for diagnosis of diabetes. Reference: Standards of Medical Care in Diabetes 2016, [place] [employer]. Diabetes Care. 2016.39(Suppl 1). Interpretation and review of laboratory results Abnormal [facility] Potassium [Moles/Vol] 4.3 mmol/L 3.7 - 5.1 mmol/L [facility] Protein [Mass/Vol] 6.7 g/dL 6.3 - 8.0 g/dL [facility] Sodium [Moles/Vol] 139 mmol/L 136 - 144 mmol/L [facility] Urea nitrogen [Mass/Vol] 10 mg/dL 7 - 21 mg/dL [facility] Albumin [Mass/Vol] 4.3 g/dL Normal 3.9-4.9 [facility] Comment on above: Order Comment: Speci men Type: SWAB Ordering Facility: [facility] Address: [address] [place] [address] Performed By: #### 3 6902-5, BVAMP #### [facility] CLIA [id number] [address] [place] [address] [place] ALP [Catalytic activity/Vol] 86 U/L Normal 34-123 [facility] Comment on above: Order Comment: Speci men Type: SWAB Ordering Facility: [facility] Address: [address] [place] [address] Performed By: #### 3 6902-5, BVAMP #### [facility] CLIA [id number] [address] [place] [address] [place] ALT [Catalytic activity/Vol] 17 U/L Normal 7-38 [facility] Comment on above: Order Comment: Speci men Type: SWAB Ordering Facility: [facility] Address: [address] [place] [address] Performed By: #### 3 6902-5, BVAMP #### [facility] CLIA [id number] [address] [place] [address] [place] Anion gap [Moles/Vol] 9 mmol/L Normal 8-15 [facility] Comment on above: Order Comment: Speci men Type: SWAB Ordering Facility: [facility] Address: [address] [place] [address] Performed By: #### 3 6902-5, BVAMP #### [facility] CLIA [id number] [address] [place] [address] [place] AST [Catalytic activity/Vol] 18 U/L Normal 13-35 [facility] Comment on above: Order Comment: Speci men Type: SWAB Ordering Facility: [facility] Address: [address] [place] [address] Performed By: #### 3 6902-5, BVAMP #### [facility] CLIA [id number] [address] [place] [address] [place] Bilirubin [Mass/Vol] 0.3 mg/dL Normal 0.2-1.3 [facility] Comment on above: Order Comment: Speci men Type: SWAB Ordering Facility: [facility] Address: [address] [place] [address] Performed By: #### 3 6902-5, BVAMP #### [facility] CLIA [id number] [address] [place] [address] [place] Calcium [Mass/Vol] 9.4 mg/dL Normal 8.5-10.2 [facility] Comment on above: Order Comment: Speci men Type: SWAB Ordering Facility: [facility] Address: [address] [place] [address] Performed By: #### 3 6902-5, BVAMP #### [facility] CLIA [id number] [address] [place] [address] [place] Chloride [Moles/Vol] 106 mmol/L Normal 98-107 [facility] Comment on above: Order Comment: Speci men Type: SWAB Ordering Facility: [facility] Address: [address] [place] [address] Performed By: #### 3 6902-5, BVAMP #### [facility] CLIA [id number] [address] [place] [address] [place] CO2 [Moles/Vol] 24 mmol/L Normal 22-30 [facility] Comment on above: Order Comment: Speci men Type: SWAB Ordering Facility: [facility] Address: [address] [place] [address] Performed By: #### 3 6902-5, BVAMP #### [facility] CLIA [id number] [address] [place] [address] [place] Creatinine [Mass/Vol] 0.46 mg/dL Low 0.58-0.96 [facility] Comment on above: Order Comment: Speci men Type: SWAB Ordering Facility: [facility] Address: [address] [place] [address] Performed By: #### 3 6902-5, BVAMP #### [facility] CLIA [id number] [address] [place] [address] [place] Creatinine and Glomerular filtration rate.predicted panel (S/P/Bld) 142 mL/min/1.73m??? Normal >=60 [facility] Comment on above: Order Comment: Spec men Type: SWAB Ordering Facility: [facility] Address: [address] [place] [address] Result Comment: Suri mated Glomerular Filtration Rate (eGFR) is calculated using the 2020 CKD-EPI creatinine equation. This equation utilizes serum creatinine, sex, and age as parameters. The creatinine assay has traceable calibration to isotope dilution-mass spectrometry. Refer to KDIGO guidelines for clinical interpretation. In patients with unstable renal function, e.g. those with acute kidney injury, the eGFR may not accurately reflect actual GFR. Performed By: #### 3 6902-5, BVAMP #### [facility] CLIA [id number] [address] [place] [address] [place] Glucose [Mass/Vol] 93 mg/dL Normal 74-99 [facility] Comment on above: Order Comment: Speci men Type: SWAB Ordering Facility: [facility] Address: [address] [place] [address] Result Comment: The [place] Diabetes Association (ADA) provides guidance for cutoff values for fasting glucose and random glucose. The ADA defines fasting as no caloric intake for at least 8 hours. Fasting plasma glucose results between 100 to 125 mg/dL indicate increased risk for diabetes (prediabetes). Fasting plasma glucose results greater than or equal to 126 mg/dL meet the criteria for diagnosis of diabetes. In the absence of unequivocal hyperglycemia, results should be confirmed by repeat testing. In a patient with classic symptoms of hyperglycemia or hyperglycemic crisis, random plasma glucose results greater than or equal to 200 mg/dL meet the criteria for diagnosis of diabetes. Reference: Standards of Medical Care in Diabetes 2016, [place] [employer]. Diabetes Care. 2016.39(Suppl 1). Performed By: #### 3 6902-5, BVAMP #### [facility] CLIA [id number] [address] [place] [address] [place] Potassium [Moles/Vol] 4.3 mmol/L Normal 3.7-5.1 [facility] Comment on above: Order Comment: Speci men Type: SWAB Ordering Facility: [facility] Address: [address] [place] [address] Performed By: #### 3 6902-5, BVAMP #### [facility] CLIA [id number] [address] [place] [address] [place] Protein [Mass/Vol] 6.7 g/dL Normal 6.3-8.0 [facility] Comment on above: Order Comment: Speci men Type: SWAB Ordering Facility: [facility] Address: [address] [place] [address] Performed By: #### 3 6902-5, BVAMP #### [facility] CLIA [id number] [address] [place] [address] [place] Sodium [Moles/Vol] 139 mmol/L Normal 136-144 [facility] Comment on above: Order Comment: Speci men Type: SWAB Ordering Facility: [facility] Address: [address] [place] [address] Performed By: #### 3 6902-5, BVAMP #### [facility] CLIA [id number] [address] [place] [address] [place] Urea nitrogen [Mass/Vol] 10 mg/dL Normal 7-21 [facility] Comment on above: Order Comment: Adriana hunter Type: SWAB Ordering Facility: [facility] Address: [address] [place] [address] Performed By: #### 3 6902-5, BVAMP #### [facility] CLIA [id number] [address] [place], [place] [address] [address] [place] HbA1c (Bld)on 08-09-2024 Average glucose Estimated from glycated hemoglobin (Bld) [Mass/Vol] 94 mg/dL [facility] Comment on above: eAG: (Estimated aver age glucose) is a calculated value from HgbA1c and is client representative of the average blood glucose level in the last 2-3 month period. HbA1c (Bld) [Mass fraction] 4.9 % 4.3 - 5.6 % [facility] Comment on above: [place] Diabetes As sociation guidelines indicate that patients with HgbA1c in the range 5.7-6.4% are at increased risk for development of diabetes, and intervention by lifestyle modification may be beneficial. HgbA1c greater or equal to 6.5% is considered diagnostic of diabetes. [facility] Average glucose Estimated from glycated hemoglobin (Bld) [Mass/Vol] 94 mg/dL Normal [facility] Comment on above: Order Comment: Adriana hunter Type: BLOOD SPECIMEN Ordering Facility: [facility] Address: [address] [place] [address] Result Comment: eAG: (Estimated average glucose) is a calculated value from HgbA1c and is client representative of the average blood glucose level in the last 2-3 month period. Performed By: #### 5 5454-3 #### [facility] CLIA [id number] [address] [place], [place] [address] [place] [address] [place] HbA1c (Bld) [Mass fraction] 4.9 % Normal 4.3-5.6 [facility] Comment on above: Order Comment: Adriana hunter Type: BLOOD SPECIMEN Ordering Facility: [facility] Address: [address] [place] [address] Result Comment: [place] Diabetes Association guidelines indicate that patients with HgbA1c in the range 5.7-6.4% are at increased risk for development of diabetes, and intervention by lifestyle modification may be beneficial. HgbA1c greater or equal to 6.5% is considered diagnostic of diabetes. Performed By: #### 5 5454-3 #### [facility] CLIA [id number] [address] [place], [place] [address] [place] [address] [place] LIPID PANEL, NONFASTINGon Cholesterol [Mass/Vol] 135 mg/dL NINF - 170 mg/dL [facility] Comment on above: <170 mg/dL, Acceptab le 170-199 mg/dL, Borderline high >199 mg/dL, High HDL Cholesterol, Nonfasting 52 mg/dL 45 - PINF mg/dL [facility] Comment on above: >45 mg/dL, Acceptabl e 40-45 mg/dL, Borderline <40 mg/dL, Low Interpretation and review of laboratory results Normal [facility] LDL Cholesterol, Nonfasting 75 mg/dL NINF - 110 mg/dL [facility] Comment on above: <110 mg/dL, Acceptab le 110-129 mg/dL, Borderline high >129 mg/dL, High LDL/HDL Ratio, Nonfasting 1.44 mg/dL NINF - 2.42 mg/dL [facility] Comment on above: Reference: 1. Expert Panel on Integrated Guidelines for Cardiovascular Health and Risk Reduction in Children and Adolescents: National Heart, Lung and Blood Crouse. Pediatrics. 2011: 128(Suppl 5):V501-226. Non HDL Cholesterol, Nonfasting 83 mg/dL NINF - 120 mg/dL [facility] Comment on above: <120 mg/dL, Acceptab le 120-144 mg/dL, Borderline high >144 mg/dL, High Total Chol/HDL Ratio, Nonfasting 2.60 mg/dL NINF - 3.76 mg/dL [facility] Triglycerides, Nonfasting 41 mg/dL NINF - 90 mg/dL [facility] Comment on above: <90 mg/dL, Acceptabl e 90-129 mg/dL, Borderline high >129 mg/dL, High VLDL Cholesterol, Nonfasting 8 mg/dL NINF - 18 mg/dL [facility] Cholesterol [Mass/Vol] 135 mg/dL Normal <170 [facility] Comment on above: Order Comment: Speci men Type: SWAB Ordering Facility: [facility] Address: [address] [place] [address] Result Comment: <170 mg/dL, Acceptable 170-199 mg/dL, Borderline high >199 mg/dL, High Performed By: #### 3 6902-5, BVAMP #### [facility] CLIA [id number] [address] [place] [address] [place] [facility] [place] HDL CHOLESTEROL, NF 52 mg/dL Normal >45 [facility] Comment on above: Order Comment: Speci men Type: SWAB Ordering Facility: [facility] Address: [address] [place] [address] Result Comment: >45 mg/dL, Acceptable 40-45 mg/dL, Borderline <40 mg/dL, Low Performed By: #### 3 6902-5, BVAMP #### [facility] CLIA [id number] [address] [place] [address] [place] LDL CHOLESTEROL, NF 75 mg/dL Normal <110 [facility] Comment on above: Order Comment: Speci men Type: SWAB Ordering Facility: [facility] Address: [address] [place] [address] Result Comment: <110 mg/dL, Acceptable 110-129 mg/dL, Borderline high >129 mg/dL, High Performed By: #### 3 6902-5, BVAMP #### [facility] CLIA [id number] [address] [place] [address] [place] LDL/HDL RATIO, NF 1.44 mg/dL Normal <2.42 [facility] Comment on above: Order Comment: Speci men Type: SWAB Ordering Facility: [facility] Address: [address] [place] [address] Result Comment: Shade cheng: 1. Expert Panel on Integrated Guidelines for Cardiovascular Health and Risk Reduction in Children and Adolescents: National Heart, Lung and Blood Crouse. Pediatrics. 2011: 128(Suppl 5):P854-146. Performed By: #### 3 6902-5, BVAMP #### [facility] CLIA [id number] [address] [place] [address] [place] NON HDL CHOL, NF 83 mg/dL Normal <120 [facility] Comment on above: Order Comment: Speci men Type: SWAB Ordering Facility: [facility] Address: [address] [place] [address] Result Comment: <120 mg/dL, Acceptable 120-144 mg/dL, Borderline high >144 mg/dL, High Performed By: #### 3 6902-5, BVAMP #### [facility] CLIA [id number] [address] [place] [address] [place] T CHOL/HDL RATIO NF 2.60 mg/dL Normal <3.76 [facility] Comment on above: Order Comment: Speci men Type: SWAB Ordering Facility: [facility] Address: [address] [place] [address] Performed By: #### 3 6902-5, BVAMP #### [facility] CLIA [id number] [address] [place] [address] [place] TRIGLYCERIDES, NF 41 mg/dL Normal <90 [facility] Comment on above: Order Comment: Speci men Type: SWAB Ordering Facility: [facility] Address: [address] [place] [address] Result Comment: <90 mg/dL, Acceptable 90-129 mg/dL, Borderline high >129 mg/dL, High Performed By: #### 3 6902-5, BVAMP #### [facility] CLIA [id number] [address] [place] [address] [place] VLDL CHOLESTEROL, NF 8 mg/dL Normal <18 [facility] Comment on above: Order Comment: Speci men Type: SWAB Ordering Facility: [facility] Address: [address] [place] [address] Performed By: #### 3 6902-5, BVAMP #### [facility] CLIA [id number] [address] [place] [address] [place] No Panel Informationon 08-09 [facility] Interpretation and review of laboratory results Normal [facility] T4 FREE/FREE THYROXINEon Free T4 [Mass/Vol] 1.1 ng/dL 0.9 - 1.7 ng/dL [facility] T4 Free SerPl-mCncon 024 Free T4 [Mass/Vol] 1.1 ng/dL Normal 0.9-1.7 [facility] Comment on above: Order Comment: Speci men Type: SWAB Ordering Facility: [facility] Address: [address] [place] [address] Performed By: #### 3 6902-5, BVAMP #### [facility] CLIA [id number] [address] [place] [address] [place] THYROID STIMULATING HORMONEo n 08-09-2024 TSH Qn 0.996 m[IU]/L [facility] Comment on above: If the patient is pr egnant, TSH reference range varies by gestational period: First Trimester (weeks 9-12): 0.180-2.990 mIU/L Second Trimester: 0.110-3.980 mIU/L Third Trimester: 0.480-4.710 mIU/L Narciso Yung et al. A Practical Approach for the Verifications and Determination of Site- and Trimester-Specific Reference Intervals for Thyroid Function tests in . Thyroid, 2019:29:3:412-420. Dontrell E, et al. 2017 Guidelines of the [place] Thyroid Association for the Diagnosis and Management of Thyroid Disease during and the . Thyroid, 2017:27:3:315-389. Reference ranges were not locally established for this patient's age group. The normal values are based on the following source: Arnold W, Nate V. Reference Ranges for Adults and Children: Pre-analytical Considerations. [facility] TSH SerPl-aCncon 08-09-2024 TSH Qn 0.996 m[IU]/L Normal 0.510-4.300 [facility] Comment on above: Order Comment: Speci elsa Type: SWAB Ordering Facility: [facility] Address: [address] [place] [address] Result Comment: If t he patient is , TSH reference range varies by gestational period: First Trimester (weeks 9-12): 0.180-2.990 mIU/L Second Trimester: 0.110-3.980 mIU/L Third Trimester: 0.480-4.710 mIU/L Narciso Yung et al. A Practical Approach for the Verifications and Determination of Site- and Trimester-Specific Reference Intervals for Thyroid Function tests in . Thyroid, 2019:29:3:412-420. Dontrell Kang, et al. 2017 Guidelines of the [place] Thyroid Association for the Diagnosis and Management of Thyroid Disease during and the . Thyroid, 2017:27:3:315-389. Reference ranges were not locally established for this patient's age group. The normal values are based on the following source: Arnold W, Nate V. Reference Ranges for Adults and Children: Pre-analytical Considerations. [facility] Performed By: #### 3 6902-5, BVAMP #### [facility] CLIA [id number] [address] [place] [address] [facility] CNOVon 07-06-2024 CNOV Office Visit ([facility] ) -------- MARISOL PONCE ([id number]) 5 F Date Time Provider Department 07/06/24 3:45 PM BRAULIO HOU [facility] During your visit today, we recorded the following information about you: Temperature Pulse Respiration Blood pressure 96.8 degrees 94/minute 20/minute 115/73 Weight Last Period 66 kg 07/06/24 Braulio Hou PA 07/06/2024 4:15 PM Signed This note was created using NoteWriter. Subjective Marisol Ponce is a 19 year old female. Review of Systems Objective BP 115/73 Pulse 94 Temp 36 ?C (96.8 ?F) Resp 20 Wt 66 kg (145 lb 8.1 oz) LMP 07/06/2024 (Exact Date) SpO2 95% No Physical Exam Assessment and Plan Problem List Items Addressed This Visit None Visit Diagnoses Acute cough - Primary Relevant Orders XR CHEST 2V FRONTAL/LAT Braulio Hou PA 07/06/2024 4:15 PM Signed This note was created using Dittitriter. Subjective Marisol Ponce is a 19 year old female. HPI 19-year-old female presents for cough x 2 weeks. Patient states she has had a cough for the past 2 weeks. She was diagnosed with COVID about a month ago. She states that she got better and then started getting nasal congestion and cough again. She was seen here 5 days ago and diagnosed with ear infection and sinus infection. She is being treated with Augmentin. Patient states she has been taking antibiotic as prescribed. Her nasal congestion and ear pain is better, but her cough is worsening. She states that she is having coughing fits to the point where she vomits. She has some shortness of breath with coughing fits. She states she is unable to take a deep breath due to it causing her to cough. She has been taking Mucinex [id number]-[id number], but has not really been helping. She states she has felt warm, but has not taken her temperature. She denies any history of COPD or asthma. No other complaint. PAST MEDICAL HISTORY 07/08/2015: ADHD (attention deficit hyperactivity disorder), combined type 06/01/2023: Generalized anxiety disorder PAST SURGICAL HISTORY 02/22/2024: NEXPLANON INSERTION Comment: Placed in left arm No date: NONE ALLERGIES Fd And C Red No.40 MEDICATIONS amoxicillin-clavulanate potassium (AUGMENTIN) 875-125 mg per tablet Take 1 tablet by mouth two times a day for 7 days. etonogestrel (NEXPLANON) subdermal implant 68 mg 1 Each by SUBDERMAL route as directed. BABY ASPIRIN ORAL Take 162 mg by mouth once daily. (Patient not taking: Reported on 01/18/2024) PNV no.95/ferrous fum/folic ac ( ORAL) Take by mouth. (Patient not taking: Reported on 06/10/2024) FAMILY HISTORY Adopted: Yes Social History Tobacco Use Smoking status: Never Smokeless tobacco: Never Vaping Use Vaping status: Never Used Substance Use Topics Alcohol use: Never Drug use: Never Review of Systems Constitutional: Negative for chills and fever. HENT: Positive for congestion. Negative for ear pain and sore throat. Respiratory: Positive for cough and shortness of breath. Cardiovascular: Negative for chest pain. Gastrointestinal: Negative for diarrhea and vomiting. Objective BP 115/73 Pulse 94 Temp 36 ?C (96.8 ?F) Resp 20 Wt 66 kg (145 lb 8.1 oz) LMP 07/06/2024 (Exact Date) SpO2 95% No Physical Exam Vitals and nursing note reviewed. Constitutional: General: She is not in acute distress. Appearance: Normal appearance. She is not toxic-appearing. HENT: Right Ear: Tympanic membrane and ear canal normal. Left Ear: Tympanic membrane and ear canal normal. Nose: Nose normal. Mouth/Throat: Mouth: Mucous membranes are moist. Eyes: Conjunctiva/sclera: Conjunctivae normal. Cardiovascular: Rate and Rhythm: Normal rate and regular rhythm. Pulmonary: Effort: Pulmonary effort is normal. Breath sounds: Decreased breath sounds present. No wheezing, rhonchi or rales. Skin: General: Skin is warm and dry. Neurological: Mental Status: She is alert. Assessment and Plan ASSESSMENT/PLAN: 1. Acute cough - ICD9: 786.2, ICD10: R05.1 (primary diagnosis) - XR CHEST 2V FRONTAL/LAT-patchy bilateral opacities in bilateral lungs likely representing pneumonia -Currently on Augmentin. Rx doxycycline. -Rx albuterol inhaler -Rx Tessalon Perles -Follow-up with PCP in 3 to 4 weeks to ensure resolution 2. Pneumonia of both lower lobes due to infectious organism - ICD9: 486, ICD10: J18.9 -See above. Diagnosis and treatment plan were discussed and questions were answered to the patient's satisfaction. Pt acknowledged understanding of concepts and follow up plan. Specific signs and symptoms that would indicate the need for higher level of care were discussed in detail warranting prompt ER evaluation. SUJEY Pappas Allergies As of Date: 07/06/2024 Noted Allergy Reaction FD AND C RED NO.40 01/27/2016 8 - GI Upset Da (more content not included)... Normal [facility] XR CHEST 2V FRONTAL/LATon XR CHEST 2V FRONTAL/LAT * * *Final Repor t* * * DATE OF EXAM: Jul 06 2024 3:59PM WOX [id number] - XR CHEST 2V FRONTAL/LAT / PROCEDURE REASON: Acute cough * * * * Physician Interpretation * * * * EXAMINATION: CHEST RADIOGRAPH (2 VIEW FRONTAL and LATERAL) CLINICAL HISTORY: Acute cough MQ: XC2_6 EXAM DATE/TIME: 07/06/2024 3:59 PM COMPARISON: No relevant prior studies available. RESULT: Lines, tubes, and devices: None. Lungs and pleura: Patchy consolidative opacities visualized in the right midlung and left lower lung. No mass lesion identified. No pleural effusions or pneumothorax. Cardiomediastinal silhouette: Normal cardiomediastinal silhouette. Bones and soft tissues: Unremarkable. IMPRESSION: Patchy consolidative opacities in the bilateral lungs, likely representing pneumonia. Please clinically correlate. Dehydrogenation Operator[facility] Transcribe Date/Time: Jul 06 2024 4:07P Dictated by : SHEYLA WALLACE MD This examination was interpreted and the report reviewed and electronically signed by: SHEYLA WALLACE MD on Jul 06 2024 4:08PM EST [id number] Normal [facility] XR Chest PA and Lateralon IMPRESSION: Patchy consolidative opacities in the bilateral lungs, likely representing pneumonia. Please clinically correlate. Dehydrogenation Operator: [facility] Transcribe Date/Time: Jul 06 2024 4:07P Dictated by : SHEYLA WALLACE MD This examination was interpreted and the report reviewed and electronically signed by: SHEYLA WALLACE MD on Jul 06 2024 4:08PM EST DIVISION OF RADIOLOGY * * *Final Report* * * DATE OF EXAM: Jul 06 2024 3:59PM WOX 5291 - XR CHEST 2V FRONTAL/LAT / PROCEDURE REASON: Acute cough * * * * Physician Interpretation * * * * EXAMINATION: CHEST RADIOGRAPH (2 VIEW FRONTAL & LATERAL) CLINICAL HISTORY: Acute cough MQ: XC2_6 EXAM DATE/TIME: 07/06/2024 3:59 PM COMPARISON: No relevant prior studies available. RESULT: Lines, tubes, and devices: None. Lungs and pleura: Patchy consolidative opacities visualized in the right midlung and left lower lung. No mass lesion identified. No pleural effusions or pneumothorax. Cardiomediastinal silhouette: Normal cardiomediastinal silhouette. Bones and soft tissues: Unremarkable. DIVISION OF RADIOLOGY Provider, Allyson hoffman Crouse - 07/06/2024 * * *Final Report* * * DATE OF EXAM: Jul 06 2024 3:59PM WOX 5291 - XR CHEST 2V FRONTAL/LAT / PROCEDURE REASON: Acute cough * * * * Physician Interpretation * * * * EXAMINATION: CHEST RADIOGRAPH (2 VIEW FRONTAL & LATERAL) CLINICAL HISTORY: Acute cough MQ: XC2_6 EXAM DATE/TIME: 07/06/2024 3:59 PM COMPARISON: No relevant prior studies available. RESULT: Lines, tubes, and devices: None. Lungs and pleura: Patchy consolidative opacities visualized in the right midlung and left lower lung. No mass lesion identified. No pleural effusions or pneumothorax. Cardiomediastinal silhouette: Normal cardiomediastinal silhouette. Bones and soft tissues: Unremarkable. IMPRESSION IMPRESSION: Patchy consolidative opacities in the bilateral lungs, likely representing pneumonia. Please clinically correlate. Dehydrogenation Operator: [facility] Transcribe Date/Time: Jul 06 2024 4:07P Dictated by : SHEYLA WALLACE MD This examination was interpreted and the report reviewed and electronically signed by: SHEYLA WALLACE MD on Jul 06 2024 4:08PM [facility] Radiology Study observation (narrative) Trish Abdullahi XR Chest PA and LateralOrder ed By: Cc Provider on 07-06-2024 [facility] CNOVon 07-01-2024 CNOV Office Visit ([facility] ) -------- MARISOL PONCE ([id number]) 5 F Date Time Provider Department 07/01/24 10:30 AM BRAULIO HOU [facility] During your visit today, we recorded the following information about you: Temperature Pulse Respiration Blood pressure 98.6 degrees 90/minute 18/minute 122/68 Weight 69.2 kg Braulio Hou PA 07/01/2024 10:40 AM Signed This note was created using Feverter. Subjective Marisol Ponce is a 19 year old female. HPI 19-year-old female presents for cough, fever, sore throat, congestion x 1 week. Patient was here on 06/10/2024 and diagnosed with COVID. She states that her symptoms improved, but then a week ago she started getting cough, chest congestion, sore throat, fever and lost her voice. She states her nasal congestion is worse. She has headaches in the front of her head. She states her boyfriend was recently diagnosed with pneumonia on top of COVID. Patient states she is also having some ear pain. No vomiting or diarrhea. Her sore throat and loss of voice are new this week as well. She has had fevers, Tmax 101 ?F a few days ago. No chest pain or shortness of breath. No vomiting or diarrhea. Still able to eat and drink. She has been taking [id number]-fqn-[id number] cold medications with some improvement. She is not or breast-feeding. PAST MEDICAL HISTORY 07/08/2015: ADHD (attention deficit hyperactivity disorder), combined type 06/01/2023: Generalized anxiety disorder PAST SURGICAL HISTORY 02/22/2024: NEXPLANON INSERTION Comment: Placed in left arm No date: NONE ALLERGIES Patient has no known allergies. MEDICATIONS etonogestrel (NEXPLANON) subdermal implant 68 mg 1 Each by SUBDERMAL route as directed. BABY ASPIRIN ORAL Take 162 mg by mouth once daily. (Patient not taking: Reported on 01/18/2024) PNV no.95/ferrous fum/folic ac ( ORAL) Take by mouth. (Patient not taking: Reported on 06/10/2024) FAMILY HISTORY Adopted: Yes Social History Tobacco Use Smoking status: Never Smokeless tobacco: Never Vaping Use Vaping status: Never Used Substance Use Topics Alcohol use: Never Drug use: Never Review of Systems Constitutional: Positive for chills and fever. HENT: Positive for congestion, ear pain, sinus pressure, sinus pain and sore throat. Respiratory: Positive for cough. Negative for shortness of breath. Cardiovascular: Negative for chest pain. Gastrointestinal: Negative for diarrhea and vomiting. Neurological: Positive for headaches. Objective BP 122/68 Pulse 90 Temp 37 ?C (98.6 ?F) Resp 18 Wt 69.2 kg (152 lb 8.9 oz) LMP 03/29/2024 (Exact Date) SpO2 97% Physical Exam Vitals and nursing note reviewed. Constitutional: General: She is not in acute distress. Appearance: Normal appearance. She is not toxic-appearing. HENT: Right Ear: Ear canal normal. A middle ear effusion is present. Tympanic membrane is erythematous. Left Ear: Ear canal normal. A middle ear effusion is present. Nose: Nose normal. Mouth/Throat: Mouth: Mucous membranes are moist. Pharynx: Uvula midline. Posterior oropharyngeal erythema present. Tonsils: No tonsillar exudate. 2+ on the right. 2+ on the left. Eyes: Conjunctiva/sclera: Conjunctivae normal. Cardiovascular: Rate and Rhythm: Normal rate and regular rhythm. Pulmonary: Effort: Pulmonary effort is normal. Breath sounds: Normal breath sounds. No wheezing, rhonchi or rales. Skin: General: Skin is warm and dry. Neurological: Mental Status: She is alert. Assessment and Plan ASSESSMENT/PLAN: 1. Sore throat - ICD9: 462, ICD10: J02.9 (primary diagnosis) - suspect viral - Group A strep molecular testing negative - Discussed supportive care treatment with fluids, rest and analgesia. - The patient may also use warm salt water gargles, throat lozenges and/or OTC throat spray as needed. - STREP A MOLECULAR (POC) 2. Acute otitis media, right - ICD9: 382.9, ICD10: H66.91 - Will begin treatment with Augmentin 875 mg PO BID for 7 days -Also covering for potential sinusitis, symptoms x 8 days. - Supportive care with plenty of fluids, rest, and analgesia prn. 3. COVID-19 - ICD9: 079.89, ICD10: U07.1 -Positive on 06/10. Symptoms improved, now with new symptoms. Suspect new viral illness. Diagnosis and treatment plan were discussed and questions were answered to the patient's satisfaction. Pt acknowledged understanding of concepts and follow up plan. Specific signs and symptoms that would indicate the need for higher level of care were discussed in detail warranting prompt ER evaluation. SUJEY Pappas Allergies As of Date: 07/01/2024 (No Known Allergies) Date Reviewed: 07/01/2024 Reviewed by: Anita Schaefer MA - Fully Assessed Reason for Visit: Chest Congestion [236] Cmt: cough, fever, sore throat, larynigitis x 1 week Primary Visit Diagnosis:Sore throat (more content not included)... Normal [facility] STREP A MOLECULAR (POC)on Procedural Control Valid [facility] Strep A (POCT) Negative Negative [facility] CNPNon 06-11-2024 CNPN Telephone ([facility]) -------- MARISOL PONCE ([id number]) 5 F Date Time Provider Department 06/11/24 BRAULIO HOU [facility] During your visit today, we recorded the following information about you: Braulio Hou PA 06/11/2024 7:05 AM Signed Please let patient know she tested positive for Beth-19. Isolate until 24 hours fever free and symptoms improving Anita Schaefer MA 06/11/2024 7:11 AM Signed Left message for patient to return call. BRITTA Vitale Melissa, MA 06/11/2024 9:21 AM Signed [facility] Anita Schaefer MA Allergies As of Date: 06/11/2024 (No Known Allergies) Date Reviewed: 06/10/2024 Reviewed by: Anita Schaefer MA - Fully Assessed Reason for Visit: Results [95] Prescriptions as of 06/11/2024 - etonogestrel (NEXPLANON) subdermal implant 68 mg 1 Each by SUBDERMAL route as directed. - BABY ASPIRIN ORAL Take 162 mg by mouth once daily. - PNV no.95/ferrous fum/folic ac ( ORAL) Take by mouth. Problem List As Of Date 06/11/2024 Noted Resolved Generalized anxiety disorder [F41.1] 06/01/2023 ADHD (attention deficit hyperactivity disorder)*07/08/2015 Supervision of high risk in third tri*09/07/2023 Encounter Status:Closed by ANITA SCHAEFER on 06/11/24 [facility] CNOVon 06-10-2024 CNOV Office Visit (UCWSTR ) -------- MARISOL PONCE ([id number]) 5 F Date Time Provider Department 06/10/24 3:15 PM BRAULIO HOU [facility] During your visit today, we recorded the following information about you: Temperature Pulse Respiration Blood pressure 97.8 degrees 78/minute 16/minute 122/80 Weight 70.2 kg Braulio Hou PA 06/10/2024 3:16 PM Signed This note was created using Feverter. Subjective Marisol Ponce is a 19 year old female. HPI 19-year-old female presents for COVID test. Patient states her boyfriend recently tested positive for COVID. Patient has a little bit of nasal congestion. She had a sore throat earlier this week, but that resolved. She has no cough, chest pain, shortness of breath. No fevers. No other complaint. PAST MEDICAL HISTORY 07/08/2015: ADHD (attention deficit hyperactivity disorder), combined type 06/01/2023: Generalized anxiety disorder PAST SURGICAL HISTORY 02/22/2024: NEXPLANON INSERTION Comment: Placed in left arm No date: NONE ALLERGIES Patient has no known allergies. MEDICATIONS etonogestrel (NEXPLANON) subdermal implant 68 mg 1 Each by SUBDERMAL route as directed. BABY ASPIRIN ORAL Take 162 mg by mouth once daily. (Patient not taking: Reported on 01/18/2024) PNV no.95/ferrous fum/folic ac ( ORAL) Take by mouth. (Patient not taking: Reported on 06/10/2024) FAMILY HISTORY Adopted: Yes Social History Tobacco Use Smoking status: Never Smokeless tobacco: Never Vaping Use Vaping Use: Never used Substance Use Topics Alcohol use: Never Drug use: Never Review of Systems Constitutional: Negative for chills and fever. HENT: Positive for congestion and sore throat. Negative for ear pain. Respiratory: Negative for cough and shortness of breath. Cardiovascular: Negative for chest pain. Gastrointestinal: Negative for diarrhea and vomiting. Objective BP 122/80 Pulse 78 Temp 36.6 ?C (97.8 ?F) Resp 16 Wt 70.2 kg (154 lb 12.2 oz) LMP 03/29/2024 (Exact Date) SpO2 99% Physical Exam Vitals and nursing note reviewed. Constitutional: General: She is not in acute distress. Appearance: Normal appearance. She is not toxic-appearing. HENT: Right Ear: Tympanic membrane and ear canal normal. Left Ear: Tympanic membrane and ear canal normal. Nose: Nose normal. Mouth/Throat: Mouth: Mucous membranes are moist. Eyes: Conjunctiva/sclera: Conjunctivae normal. Cardiovascular: Rate and Rhythm: Normal rate and regular rhythm. Pulmonary: Effort: Pulmonary effort is normal. Breath sounds: Normal breath sounds. No wheezing, rhonchi or rales. Skin: General: Skin is warm and dry. Neurological: Mental Status: She is alert. Assessment and Plan ASSESSMENT/PLAN: 1. Exposure to COVID-19 virus - ICD9: V01.79, ICD10: Z20.822 (primary diagnosis) - COVID NAAT, UPPER RESPIRATORY, ROUTINE -Not a candidate for antiviral. -Supportive treatment at home 2. Nasal congestion - ICD9: 478.19, ICD10: R09.81 - COVID NAAT, UPPER RESPIRATORY, ROUTINE Diagnosis and treatment plan were discussed and questions were answered to the patient's satisfaction. Pt acknowledged understanding of concepts and follow up plan. Specific signs and symptoms that would indicate the need for higher level of care were discussed in detail warranting prompt ER evaluation. SUJEY Pappas Allergies As of Date: 06/10/2024 (No Known Allergies) Date Reviewed: 06/10/2024 Reviewed by: Anita Schaefer MA - Fully Assessed Reason for Visit: Nasal Congestion [235] Cmt: x 2 days, covid exposure Primary Visit Diagnosis:Exposure to COVID-19 virus [Z20.822] Other Visit Diagnosis:Nasal congestion [R09.81] Order(s):COVID NAAT, UPPER RESPIRATORY, ROUTINE [SQCOVID] Order #: [id number]. #:[id number] Prescriptions as of 06/10/2024 - etonogestrel (NEXPLANON) subdermal implant 68 mg 1 Each by SUBDERMAL route as directed. - BABY ASPIRIN ORAL Take 162 mg by mouth once daily. - PNV no.95/ferrous fum/folic ac ( ORAL) Take by mouth. Problem List As Of Date 06/10/2024 Noted Resolved Generalized anxiety disorder [F41.1] 06/01/2023 ADHD (attention deficit hyperactivity disorder)*07/08/2015 Supervision of high risk in third tri*09/07/2023 Encounter Status:Closed by BRAULIO HOU on 06/10/24 Normal [facility] SARS-CoV-2 RNA Resp Ql SOWMYA+p don 06-10-2024 SARS-CoV-2 (COVID-19) RNA SOWMYA+probe Ql (Resp) COVID 19 RESULT: Detected The method used is RT-PCR or an equivalent NAAT method. Reference Range (the expected result in uninfected individuals): Not detected Normal [facility] Comment on above: Performed By: #### [id number] ####[facility] LABCLIA [id number] [place] [address] [place] UA DIP,URINE HCG (POC)on Beta HCG ( test) Ql (U) Negative Negative [facility] Comment on above: Location:[facility], [facility] [address], [place], [address] Cigarette Paper Tester (POCT) Internal QC OK [facility] Location:[facility], [address], [place], [address] [facility] POINT OF CARE [facility] Basophil percentageOrdered B y: Alejandro Nelson on 01-04-2024 Hemoglobin (Bld) [Mass/Vol] 10.0 g/dL 12.0-15.0 [facility] WBC (Bld) [#/Vol] 9.9 10*3/uL 4.5-13.0 [facility] Determination of erythrocyte mean corpuscular volume (MCV)Ordered By: Alejandro Nelson on 01-04-2024 MCV (RBC) [Entitic vol] 88.0 fL 78-96 [facility] Erythrocyte distribution wid th ratioOrdered By: Alejandro Nelson on 01-04-2024 Erythrocyte distribution width (RBC) [Ratio] 14.0 % 11.6-14.6 [facility] Erythrocyte distribution wid th standard deviationOrdered By: Alejandro Nelson on 01-04-2024 Erythrocyte distribution width (RBC) [Entitic vol] 44.4 fL 35.1-43.9 [facility] Hematocrit Auto (Bld) [Volum e fraction]Ordered By: Alejandro Nelson on 01-04-2024 Hematocrit (Bld) [Volume fraction] 30.8 % 37-46 [facility] Laboratory - Hematology and Cell countsOrdered By: Alejandro Nelson on 01-04-2024 MCH (RBC) [Entitic mass] 28.6 pg 25.0-35.0 [facility] MCHC (RBC) [Mass/Vol] 32.5 g/dL 32-36 [facility] Platelet mean volume (Bld) [Entitic vol] 10.9 fL 6.2-12.0 [facility] Platelets (Bld) [#/Vol] 138 10*3/uL 150-450 [facility] RBC Auto (Bld) [#/Vol]Ordere d By: Alejandro Nelson on 01-04-2024 RBC (Bld) [#/Vol] 3.50 10*6/uL 4.1-4.8 [facility] Absolute lymphocyte countOrd ered By: Ruth Ramirez on 01-03-2024 Lymphocytes Auto (Unsp spec) [#/Vol] 1.62 10*3/uL 0.83-4.51 [facility] Automated lymphocyte count a s percentage of total leukocytesOrdered By: Ruth Ramirez on 01-03-2024 Lymphocytes/100 WBC Auto (Unsp spec) 22.3 % 25-45 [facility] Basophil percentageOrdered B y: Ruth Ramirez on 01-03-2024 Basophils/100 WBC (Bld) 0.3 % 0-1 [facility] Eosinophils/100 WBC (Bld) 1.8 % 0-3 [facility] Monocytes/100 WBC (Bld) 6.9 % 3-6 [facility] Neutrophils (Bld) [#/Vol] 5.0 10*3/uL 2.0-7.7 [facility] Neutrophils/100 WBC (Bld) 68.3 % 34-64 [facility] Immature granulocytes/100 WB C Auto (Bld)Ordered By: Ruth Ramirez on 01-03-2024 Immature granulocytes/100 WBC (Bld) 0.400 % 0.0-0.9 [facility] Comment on above: IG% - Immature Granu locytes (promyelocytes, myelocytes and metamyelocytes) > 1% indicates that a LEFT SHIFT is Present. Laboratory - Hematology and Cell countsOrdered By: Ruth Ramirez on 01-03-2024 Nucleated RBC/100 WBC (Bld) [Ratio] 0 % 0-5 [facility] No Panel InformationOrdered By: Ruth Ramirez on 01-03-2024 Vaginal Amniotic Fluid Detection Positive Negative [facility] Comment on above: Amniotic fluid prese nt indicates rupture of Membranes. RESULTS CALLED TO A BILLINGS 01/03/24 0526 Alida Lopes.REPORT READ BACK BY SAME. Serum Treponema species anti body detectionOrdered By: Ruth Ramirez on 01-03-2024 Treponema sp Ab Ql (S) Non-Reactive [facility] URINE OB DIP B/Oon 4 Glucose Ql (U) Negative Neg mg/dL [facility] Protein.monoclonal (U) [Mass/Vol] Negative Neg mg/dL [facility] URINE OB DIP B/Oon 4 Glucose Ql (U) Negative Neg mg/dL [facility] Protein.monoclonal (U) [Mass/Vol] Negative Neg mg/dL [facility] Bilirubin Test strip Ql (U)O rdered By: Destinee Yao on 12-15-2023 Bilirubin Ql (U) Negative Negative [facility] Culture, urineOrdered By: Augusto Yao on 12-15-2023 Bacteria identified Cx Nom (U) Positive [facility] Ketones Test strip Ql (U)Ord ered By: Destinee Yao on 12-15-2023 Ketones Ql (U) Negative Negative [facility] Nitrite Test strip Ql (U)Ord ered By: Destinee Yao on 12-15-2023 Nitrite Ql (U) Negative Negative [facility] Protein Test strip Ql (U)Ord ered By: Destinee Yao on 12-15-2023 Protein Ql (U) Negative Negative [facility] Urine blood detectionOrdered By: Destinee Yao on 12-15-2023 RBC Ql (U) Negative Negative [facility] Urine clarityOrdered By: Amy Yao on 12-15-2023 Clarity (U) Clear Clear [facility] Urine color determinationOrd ered By: Destinee Yao on 12-15-2023 Color (U) Yellow Yellow [facility] Urine glucose detectionOrder ed By: Destinee Yao on 12-15-2023 Glucose Ql (U) 50 mg/dl Normal [facility] Urine leukocyte esterase det ection by dipstickOrdered By: Destinee Yao on 12-15-2023 Leukocyte esterase Test strip Ql (U) 25 /ul Negative [facility] Urine pHOrdered By: Destinee Yao on 12-15-2023 pH (U) 6.5 [pH] 5.0 - 8.0 [facility] Urine specific gravity measu rementOrdered By: Destinee Yao on 12-15-2023 Specific gravity (U) [Rel density] 1.020 1.002-1.030 [facility] Urine urobilinogen measureme ntOrdered By: Destinee Yao on 12-15-2023 Urobilinogen Ql (U) Normal mg/dl Normal [facility] URINE OB DIP B/Oon 4 Glucose Ql (U) Negative Neg mg/dL [facility] Protein.monoclonal (U) [Mass/Vol] Negative Neg mg/dL [facility] URINE OB DIP B/Oon 3 Glucose Ql (U) Negative Neg mg/dL [facility] Protein.monoclonal (U) [Mass/Vol] Negative Neg mg/dL [facility] URINE OB DIP B/Oon 3 Glucose Ql (U) Negative Neg mg/dL [facility] Protein.monoclonal (U) [Mass/Vol] Negative Neg mg/dL [facility] OBSTETRIC ULTRASOUND WHIon 1 [facility] URINE OB DIP B/Oon 3 Glucose Ql (U) Negative Neg mg/dL [facility] Protein.monoclonal (U) [Mass/Vol] Negative Neg mg/dL [facility] URINE OB DIP B/Oon 3 Glucose Ql (U) Negative Neg mg/dL [facility] Protein.monoclonal (U) [Mass/Vol] trace Neg mg/dL [facility] POC ACID REGENERATOR ULTRASOUNDon 06-01-20 [facility] STREP A MOLECULAR (POC)on Procedural Control Valid [facility] Strep A (POCT) Negative Negative [facility] Absolute lymphocyte counton 10-14-2022 Lymphocytes Auto (Unsp spec) [#/Vol] 1.33 10*3/uL 0.83-4.51 [facility] Work Phone: Basophil percentageon 2021 Basophils/100 WBC (Bld) 0.1 % 0-1 [facility] Work Phone: Chloride [Moles/Vol] 108 mmol/L 98-107 [facility] Work Phone: Eosinophils/100 WBC (Bld) 0.3 % 0-3 [facility] Work Phone: Glucose [Mass/Vol] 108 mg/dL 74-106 [facility] Work Phone: Comment on above: Fasting Glucose resu lt from 100 to 125 mg/dL suggests IMPAIRED HOMEOSTASIS per A.D.A. criteria. Neutrophils (Bld) [#/Vol] 9.0 10*3/uL 2.0-7.7 [facility] Work Phone: Neutrophils/100 WBC (Bld) 83.0 % 34-64 [facility] Work Phone: Potassium [Moles/Vol] 3.9 mmol/L 3.5-5.1 [facility] Work Phone: Sodium [Moles/Vol] 138 mmol/L 136-145 [facility] Work Phone: WBC (Bld) [#/Vol] 10.8 10*3/uL 4.5-13.0 [facility] Work Phone: Beta hCG serum qualon 2021 Beta HCG ( test) Ql Negative [facility] Work Phone: Blood erythrocytes count (nu mber/volume)on 10-14-2022 RBC (Bld) [#/Vol] 4.56 10*6/uL 4.1-4.8 [facility] Work Phone: Blood hemoglobin measurement (mass/volume)on 10-14-2022 Hemoglobin (Bld) [Mass/Vol] 13.5 g/dL 12.0-15.0 [facility] Work Phone: Blood lymphocytes/100 leukoc yteson 10-14-2022 Lymphocytes/100 WBC (Bld) 12.3 % 25-45 [facility] Work Phone: Blood monocytes/100 leukocyt eson 10-14-2022 Monocytes/100 WBC (Bld) 3.9 % 3-6 [facility] Work Phone: Blood platelet mean volumeon 10-14-2022 Platelet mean volume (Bld) [Entitic vol] 10.5 fL 6.2-12.0 [facility] Work Phone: Determination of erythrocyte mean corpuscular volume (MCV)on 10-14-2022 MCV (RBC) [Entitic vol] 90.8 fL 78-96 [facility] Work Phone: Hematocrit Auto (Bld) [Volum e fraction]on 10-14-2022 Hematocrit (Bld) [Volume fraction] 41.4 % 37-46 [facility] Work Phone: Laboratory - Chemistry and C hemistry - challengeon 10-14-2022 CO2 [Moles/Vol] 26.0 mmol/L 21.0-32.0 [facility] Work Phone: Urea nitrogen/Creatinine [Mass ratio] 21.9 mg/mg 10-20 [facility] Work Phone: Laboratory - Drug toxicology on 10-14-2022 Amphetamines Ql (U) Negative <1000 ng/mL [facility] Work Phone: Benzodiazepines Ql (U) Negative < 200 ng/mL [facility] Work Phone: Cannabinoids Screen Ql (U) Negative < 50 ng/mL [facility] Work Phone: Cocaine Ql (U) Negative < 300 ng/mL [facility] Work Phone: Opiates Ql (U) Negative < 300 ng/mL [facility] Work Phone: Laboratory - Hematology and Cell countson 10-14-2022 Erythrocyte distribution width (RBC) [Entitic vol] 41.1 fL 35.1-43.9 [facility] Work Phone: Erythrocyte distribution width (RBC) [Ratio] 12.6 % 11.6-14.6 [facility] Work Phone: Immature granulocytes/100 WBC (Bld) 0.400 % 0.0-0.9 [facility] Work Phone: Comment on above: IG% - Immature Granu locytes (promyelocytes, myelocytes and metamyelocytes) > 1% indicates that a LEFT SHIFT is Present. MCH (RBC) [Entitic mass] 29.6 pg 25.0-35.0 [facility] Work Phone: Nucleated RBC/100 WBC (Bld) [Ratio] 0 % 0-5 [facility] Work Phone: MCHC Auto (RBC) [Mass/Vol]on 10-14-2022 MCHC (RBC) [Mass/Vol] 32.6 g/dL 32-36 [facility] Work Phone: No Panel Informationon 10-14 MDMA (Ecstasy) Screen Negative < 500 ng/mL [facility] Work Phone: Urine Barbiturates Screen Negative < 200 ng/mL [facility] Work Phone: Urine Drug Screen Comment [facility] Work Phone: Comment on above: CONFIRMATORY TESTING FOR ALL POSITIVE URINE DRUG SCREENRESULTS WILL ONLY BE SENT OUT UPON PHYSICIAN ORDER. VISTA Urine Drug Screen methods provide only preliminaryanalytical test results. A more specific alternate chemicalmethod must be used in order to obtain a confirmedanalytical result. Gas chromatography/mass spectrometery(GC/MS) is the preferred confirmatory method. Clinicalconsideration and professional judgement should be appliedto any drug of abuse test result, particularly whenpreliminary positive results are used. URINE TCA TESTING MUST BE ORDERED SEPARATELY. USE TESTMNEMONIC: [facility] Urine Methadone Screen Negative < 300 ng/mL [facility] Work Phone: Estimated Creatinine Clearance Calc 138.34 ml/min [facility] Work Phone: Estimated GFR (MDRD) [facility] Work Phone: Comment on above: Test not performedAf rican Gambian GFR Calc Estimated GFR (MDRD) Non-Af [facility] Work Phone: Comment on above: Test not performedNo n- GFR Calc Ethyl Alcohol Level < 3.0 mg/dL [facility] Work Phone: Comment on above: The serum:whole bloo d ethanol ratio is approximately 1.14and varies slightly with hematocrit. Medical Alcohol reference interval and critical value innon-tolerant individuals; 50 - 100 Impairment 100 Intoxication 100 - 250 Severe Poisoning 250 - 400 Deep/possible fatal coma Platelets bldon 10-14-2022 Platelets (Bld) [#/Vol] 215 10*3/uL 150-450 [facility] Work Phone: Serum or plasma calcium annie urement (mass/volume)on 10-14-2022 Calcium [Mass/Vol] 8.9 mg/dL 8.5-10.1 [facility] Work Phone: Serum or plasma creatinine m easurement (mass/volume)on 10-14-2022 Creatinine [Mass/Vol] 0.55 mg/dL 0.55-1.02 [facility] Work Phone: Comment on above: The validity of the calculated GFR & GFRAA in patients over 70 years has not been determined. Clinical correlation is essential. Serum or plasma urea nitroge n measurement (mass/volume)on 10-14-2022 Urea nitrogen [Mass/Vol] 12 mg/dL 7-18 [facility] Work Phone: Thin prep Papanicolaou smear with manual screeningon 10-14-2022 Thin prep Papanicolaou smear with manual screening 4 5-15 [facility] Work Phone: Urine phencyclidine (PCP) de tectionon 10-14-2022 Phencyclidine Ql (U) Negative < 25 ng/mL [facility] Work Phone: Progress Noteon 07-19-2022 Medical Chief Technician Authentication Interface Message Text Patient ID: Marisol Ponce is a 17 y.o. female. Her chief complaint(s) include: 17 YEAR WELL CHILD (Left ankle pain when standing too long) Assessment 1. Encounter for routine child health examination without abnormal findings 2. Exercise counseling 3. Encounter for dietary counseling and surveillance 4. Need for vaccination 5. Other viral warts Plan Marisol was seen today for 17 year well child. Diagnoses and all orders for this visit: Encounter for routine child health examination without abnormal findings - PHQ9 Assessment With Score - Health Risk Assessment - CRAFFT Exercise counseling Encounter for dietary counseling and surveillance Need for vaccination - Meningococcal conjugate ACWY vaccine (MENQUADFI) - Meningococcal B (BEXSERO) Other viral warts Return in about 1 month (around 08/18/2022) for for 2nd Men B vaccine on nurse visit. Pt doing well. Discussed home treatment for wart. Dad defers flu, covid, HPV #2 today. Pt with hx of ankle pain that she saw PT for, occasionally bothers her at [employer] but defers PT referral today. Recommended supportive shoes and to f/u if pain worsening and wanting PT referral. Subjective She is accompanied by her father. Independent history obtained from father. 17 YEAR WELL CHILD Home: Marisol eats meals with family and has an adult to turn to for help. Education: Marisol is in 12th grade and is doing well. ([employer] for cosmetology ). Eating: Marisol has a calcium source. Marisol does not eat regular meals including fruits and vegetables and does not eat breakfast. Activities & Sports: Marisol has friends. (shows sheep, marching band). Drugs: Marisol does not use tobacco, does not use drugs, does not use alcohol and does not vape. Safety: Marisol has a violence free home. Suicidality: Marisol has ways to cope with stress and has anxiety (pt doing well, recent breakup but has support with friends). Marisol has no problems with sleep, has no depression, has no suicidal ideation and has no homicidal ideation. Menstruation Last Menstrual Period: 2 weeks ago. Menstruation: regular periods (+ bad cramping) Output Urine and Stool Pattern: Urine and Stool Pattern: Normal stool pattern, no constipation, normal urine pattern. Stool Consistency: soft Sleep Sleeping Difficulty: no difficulty sleeping Hours sleep per time: 8-9. Screenings Previous Vaccine Reactions: No. Life events information was reviewed-no referral needed Hearing Vision Concerns: The caregiver has no concerns about the patient's hearing. The caregiver has no concerns about the patient's vision. Patient is being seen by business operations consultant or automatic typewriter inspector. Primary Care Review of Systems Objective Vital Signs 07/19/22 1400 BP: 117/74 Pulse: 75 Weight: 54.8 kg Height: 159.3 cm Body mass index is 21.59 kg/m . Physical Exam Constitutional: She appears well. She is active. No distress. HENT: Head: Atraumatic. Ears: Right Ear: Tympanic membrane and external ear normal. Left Ear: Tympanic membrane and external ear normal. Nose: Nose normal. No nasal discharge. Mouth/Throat: Mucous membranes are moist. Dentition is normal. No dental caries. No pharynx erythema. No tonsillar exudate. Oropharynx is clear. Eyes: Conjunctivae and EOM are normal. Red reflex is present bilaterally. No strabismus. Pupils are equal, round, and reactive to light. Neck: Neck supple. Thyroid normal. Cardiovascular: Normal rate, regular rhythm, S1 normal and S2 normal. Pulses are palpable. Heart murmur not heard. No murmur lying down or standing. Pulmonary/Chest: Breath sounds normal. No respiratory distress. Exhibits no deformity. Abdominal: Soft. Bowel sounds are normal. She exhibits no distension and no mass. There is no hepatosplenomegaly. There is no abdominal tenderness. Genitourinary: Did not examine. Musculoskeletal: Cervical back: Normal range of motion and neck supple. Lumbar back: No scoliosis. General: Normal range of motion. Lymphadenopathy: No right anterior and posterior cervical adenopathy present. No left anterior and posterior cervical adenopathy present. Neurological: She is alert. She has normal strength. She exhibits normal muscle tone. Gait normal. Skin: Skin is warm. Skin is not pale. Findings: Lesion (left lateral malleolus with wart) present. No rash. Marisol Ponce is a 17 y.o. female patient. PHQ9 Assessment With Score Performed by: Sherron Mir APRN-CNP Authorized by: Sherron Mir APRN-CNP PHQ-9 See PHQ9 Flowsheet Feeling down, depressed, irritable or hopeless: Several days Little interest or pleasure in doing things: Several days Trouble falling or staying sleep, or sleeping too much: Nearly every day Poor appetite, weight loss, or overeating: Not at all Feeling tired or having little energy: Several days Feeling bad about yourself - or feeling that you are a failure, or duque (more content not included)... Normal [facility] COVID-19 virus antigen assay SARS-CoV-2 (COVID-19) Ag IA.rapid Ql (Resp) [facility] Work Phone: Vital Signs Date Time Vital Sign Value Performing Clinician Facility 08-11-2025 00:44-0400 Body temperature 97.9 [degF] No Primary Care Physician [facility] 08-11-2025 00:44-0400 Diastolic blood pressure 69 mm[Hg] No Primary Care Physician [facility] 08-11-2025 00:44-0400 Heart rate 63 /min No Primary Care Physician [facility] 08-11-2025 00:44-0400 Respiratory rate 16 /min No Primary Care Physician [facility] 08-11-2025 00:44-0400 SaO2% (BldA) [Mass fraction] 100 % No Primary Care Physician [facility] 08-11-2025 00:44-0400 Systolic blood pressure 112 mm[Hg] No Primary Care Physician [facility] 08-10-2025 23:20-0400 Body height 160.02 cm No Primary Care Physician [facility] 08-10-2025 23:20-0400 Body mass index (BMI) [Ratio] 26.2 kg/m2 No Primary Care Physician [facility] 08-10-2025 23:20-0400 Body weight 67.13 kg No Primary Care Physician [facility] 05-08-2025 09:21-0400 Body mass index (BMI) [Ratio] 28.21 kg/m2 Ruth Ramirez ASSISTANT CLINICAL NURSE MANAGER.CNM Work Phone: [facility] 05-08-2025 09:21-0400 Body weight 72.58 kg Ruth Ramirez ASSISTANT CLINICAL NURSE MANAGER.CNM Work Phone: [facility] 05-08-2025 09:21-0400 Diastolic blood pressure 62 mm[Hg] Ruth Ramirez ASSISTANT CLINICAL NURSE MANAGER.CNM Work Phone: [facility] 05-08-2025 09:21-0400 Systolic blood pressure 100 mm[Hg] Ruth Ramirez ASSISTANT CLINICAL NURSE MANAGER.CNM Work Phone: [facility] 03-13-2025 09:08-0400 Body mass index (BMI) [Ratio] 28.07 kg/m2 Dayron Cao MD Work Phone: [facility] 03-13-2025 09:08-0400 Body weight 72.21 kg Dayron Cao MD Work Phone: [facility] 03-13-2025 09:08-0400 Diastolic blood pressure 72 mm[Hg] Dayron Cao MD Work Phone: [facility] 03-13-2025 09:08-0400 Systolic blood pressure 126 mm[Hg] Dayron Cao MD Work Phone: [facility] 02-28-2025 10:49-0400 Body mass index (BMI) [Ratio] 28.76 kg/m2 Seble Bolanos ASSISTANT CLINICAL NURSE MANAGER.SHELL TRIM TOOL SETTER Work Phone: [facility] 02-28-2025 10:49-0400 Body temperature 100.2 [degF] Seble Swank ASSISTANT CLINICAL NURSE MANAGER.SHELL TRIM TOOL SETTER Work Phone: [facility] Comment on above: with meds 02-28-2025 10:49-0400 Body weight 74 kg Seble Swank ASSISTANT CLINICAL NURSE MANAGER.SHELL TRIM TOOL SETTER Work Phone: [facility] 02-28-2025 10:49-0400 Diastolic blood pressure 80 mm[Hg] Seble Swank ASSISTANT CLINICAL NURSE MANAGER.SHELL TRIM TOOL SETTER Work Phone: [facility] 02-28-2025 10:49-0400 Heart rate 110 /min Seble Swank ASSISTANT CLINICAL NURSE MANAGER.SHELL TRIM TOOL SETTER Work Phone: [facility] 02-28-2025 10:49-0400 Respiratory rate 22 /min Seble Swank ASSISTANT CLINICAL NURSE MANAGER.SHELL TRIM TOOL SETTER Work Phone: [facility] 02-28-2025 10:49-0400 SaO2% (BldA) [Mass fraction] 96 % Seble Swank ASSISTANT CLINICAL NURSE MANAGER.SHELL TRIM TOOL SETTER Work Phone: [facility] 02-28-2025 10:49-0400 Systolic blood pressure 116 mm[Hg] Seble Swank ASSISTANT CLINICAL NURSE MANAGER.SHELL TRIM TOOL SETTER Work Phone: [facility] 02-13-2025 10:47-0400 Body mass index (BMI) [Ratio] 29.48 kg/m2 Ruth Plotts ASSISTANT CLINICAL NURSE MANAGER.CNM Work Phone: [facility] 02-13-2025 10:47-0400 Body weight 75.84 kg Ruth Plotts ASSISTANT CLINICAL NURSE MANAGER.CNM Work Phone: [facility] 02-13-2025 10:47-0400 Diastolic blood pressure 72 mm[Hg] Ruth Plotts ASSISTANT CLINICAL NURSE MANAGER.CNM Work Phone: [facility] 02-13-2025 10:47-0400 Systolic blood pressure 124 mm[Hg] Ruth Plotts ASSISTANT CLINICAL NURSE MANAGER.CNM Work Phone: [facility] 08-28-2024 10:43-0400 Body mass index (BMI) [Ratio] 27.56 kg/m2 Flako Hung APRN.SHELL TRIM TOOL SETTER Work Phone: [facility] 08-28-2024 10:43-0400 Body temperature 98.01 [degF] Flako Hung APRN.SHELL TRIM TOOL SETTER Work Phone: [facility] 08-28-2024 10:43-0400 Body weight 70.9 kg Flako Hung APRN.SHELL TRIM TOOL SETTER Work Phone: [facility] 08-28-2024 10:43-0400 Diastolic blood pressure 82 mm[Hg] Flako Hung APRN.SHELL TRIM TOOL SETTER Work Phone: [facility] 08-28-2024 10:43-0400 Heart rate 60 /min Flako Hung APRN.SHELL TRIM TOOL SETTER Work Phone: [facility] 08-28-2024 10:43-0400 Respiratory rate 20 /min Falko Hung APRN.SHELL TRIM TOOL SETTER Work Phone: [facility] 08-28-2024 10:43-0400 SaO2% (BldA) [Mass fraction] 100 % Flako Hung APRN.SHELL TRIM TOOL SETTER Work Phone: [facility] 08-28-2024 10:43-0400 Systolic blood pressure 133 mm[Hg] Flako Hung APRN.SHELL TRIM TOOL SETTER Work Phone: [facility] 08-09-2024 09:52-0400 Body height 160.4 cm Cameron Blanton DO Work Phone: [facility] 08-09-2024 09:52-0400 Body mass index (BMI) [Ratio] 27.25 kg/m2 Cameron Blanton DO Work Phone: [facility] 08-09-2024 09:52-0400 Body temperature 97.11 [degF] Cameron Blanton DO Work Phone: [facility] 08-09-2024 09:52-0400 Body weight 70.1 kg Cameron Blanton DO Work Phone: [facility] 08-09-2024 09:52-0400 Diastolic blood pressure 82 mm[Hg] Cameron Blanton DO Work Phone: [facility] 08-09-2024 09:52-0400 Heart rate 70 /min Cameron Blanton DO Work Phone: [facility] 08-09-2024 09:52-0400 SaO2% (BldA) [Mass fraction] 98 % Cameron Blanton DO Work Phone: [facility] 08-09-2024 09:52-0400 Systolic blood pressure 121 mm[Hg] Cameron Blanton DO Work Phone: [facility] 07-06-2024 15:40-0400 Body temperature 96.8 [degF] Krislyn Aberegg PA Work Phone: [facility] 07-06-2024 15:40-0400 Body weight 66 kg Krislyn Aberegg PA Work Phone: [facility] 07-06-2024 15:40-0400 Diastolic blood pressure 73 mm[Hg] Krislyn Aberegg PA Work Phone: [facility] 07-06-2024 15:40-0400 Heart rate 94 /min Krislyn Aberegg PA Work Phone: [facility] 07-06-2024 15:40-0400 Respiratory rate 20 /min Krislyn Aberegg PA Work Phone: [facility] 07-06-2024 15:40-0400 SaO2% (BldA) [Mass fraction] 95 % Krislyn Aberegg PA Work Phone: [facility] 07-06-2024 15:40-0400 Systolic blood pressure 115 mm[Hg] Krislyn Aberegg PA Work Phone: [facility] 07-01-2024 10:22-0400 Body temperature 98.6 [degF] Krislyn Aberegg PA Work Phone: [facility] 07-01-2024 10:22-0400 Body weight 69.2 kg Krislyn Aberegg PA Work Phone: [facility] 07-01-2024 10:22-0400 Diastolic blood pressure 68 mm[Hg] Krislyn Aberegg PA Work Phone: [facility] 07-01-2024 10:22-0400 Heart rate 90 /min Krislyn Aberegg PA Work Phone: [facility] 07-01-2024 10:22-0400 Respiratory rate 18 /min Krislyn Aberegg PA Work Phone: [facility] 07-01-2024 10:22-0400 SaO2% (BldA) [Mass fraction] 97 % Krislyn Aberegg PA Work Phone: [facility] 07-01-2024 10:22-0400 Systolic blood pressure 122 mm[Hg] Krislyn Aberegg PA Work Phone: [facility] 06-10-2024 15:090400 Body temperature 97.81 [degF] Krislyn Aberegg PA Work Phone: [facility] 06-10-2024 15:090400 Body weight 70.2 kg Krislyn Aberegg PA Work Phone: [facility] 06-10-2024 15:09-0400 Diastolic blood pressure 80 mm[Hg] Krislyn Aberegg PA Work Phone: [facility] 06-10-2024 15:09-0400 Heart rate 78 /min Krislyn Aberegg PA Work Phone: [facility] 06-10-2024 15:09-0400 Respiratory rate 16 /min Krislyn Aberegg PA Work Phone: [facility] 06-10-2024 15:09-0400 SaO2% (BldA) [Mass fraction] 99 % Krislyn Aberegg PA Work Phone: [facility] 06-10-2024 15:09-0400 Systolic blood pressure 122 mm[Hg] Braulio RM Work Phone: [facility] 04-13-2024 08:18-0400 Body weight 68.49 kg Ruth Plotts ASSISTANT CLINICAL NURSE MANAGER.CNM Work Phone: [facility] 04-13-2024 08:18-0400 Diastolic blood pressure 62 mm[Hg] Ruth Plotts ASSISTANT CLINICAL NURSE MANAGER.CNM Work Phone: [facility] 04-13-2024 08:18-0400 Systolic blood pressure 98 mm[Hg] Ruth Plotts ASSISTANT CLINICAL NURSE MANAGER.CNM Work Phone: [facility] 02-22-2024 10:44-0400 Body weight 68.58 kg Ruth Plotts ASSISTANT CLINICAL NURSE MANAGER.CNM Work Phone: [facility] 02-22-2024 10:44-0400 Diastolic blood pressure 72 mm[Hg] Ruth Plotts ASSISTANT CLINICAL NURSE MANAGER.CNM Work Phone: [facility] 02-22-2024 10:44-0400 Systolic blood pressure 110 mm[Hg] Ruth Plotts ASSISTANT CLINICAL NURSE MANAGER.CNM Work Phone: [facility] 02-15-2024 08:17-0400 Body weight 68.86 kg Ruth Plotts ASSISTANT CLINICAL NURSE MANAGER.CNM Work Phone: [facility] 02-15-2024 08:17-0400 Diastolic blood pressure 66 mm[Hg] Ruth Plotts ASSISTANT CLINICAL NURSE MANAGER.CNM Work Phone: [facility] 02-15-2024 08:17-0400 Systolic blood pressure 108 mm[Hg] Ruth Plotts ASSISTANT CLINICAL NURSE MANAGER.CNM Work Phone: [facility] 01-18-2024 11:33-0400 Body weight 69.58 kg Ruth Plotts ASSISTANT CLINICAL NURSE MANAGER.CNM Work Phone: [facility] 01-18-2024 11:33-0400 Diastolic blood pressure 62 mm[Hg] Ruth Plotts ASSISTANT CLINICAL NURSE MANAGER.CNM Work Phone: [facility] 01-18-2024 11:33-0400 Systolic blood pressure 110 mm[Hg] Ruth Plotts ASSISTANT CLINICAL NURSE MANAGER.CNM Work Phone: [facility] 01-07-2024 07:43-0500 Body temperature 98.2 [degF] [facility] 01-07-2024 07:43-0500 Diastolic blood pressure 74 mm[Hg] [facility] 01-07-2024 07:43-0500 Heart rate 76 /min [facility] 01-07-2024 07:43-0500 Respiratory rate 16 /min [facility] 01-07-2024 07:43-0500 SaO2% (BldA) [Mass fraction] 99 % [facility] 01-07-2024 07:43-0500 Systolic blood pressure 119 mm[Hg] [facility] 01-03-2024 04:53-0500 Body height 160.02 cm [facility] 01-03-2024 04:53-0500 Body mass index (BMI) [Percentile] Per age and sex 95.3 % [facility] 01-03-2024 04:53-0500 Body mass index (BMI) [Ratio] 31.1 kg/m2 [facility] 01-03-2024 04:53-0500 Body weight 79.6 kg [facility] 12-28-2023 09:30-0500 Body weight 78.47 kg Ruth Plotts ASSISTANT CLINICAL NURSE MANAGER.CNM Work Phone: [facility] 12-28-2023 09:30-0500 Diastolic blood pressure 88 mm[Hg] Ruth Plotts ASSISTANT CLINICAL NURSE MANAGER.CNM Work Phone: [facility] 12-28-2023 09:30-0500 Systolic blood pressure 126 mm[Hg] Ruth Plotts ASSISTANT CLINICAL NURSE MANAGER.CNM Work Phone: [facility] 12-21-2023 13:40-0500 Diastolic blood pressure 81 mm[Hg] Ruth Plotts ASSISTANT CLINICAL NURSE MANAGER.CNM Work Phone: [facility] 12-21-2023 13:40-0500 Systolic blood pressure 133 mm[Hg] Urth Plotts ASSISTANT CLINICAL NURSE MANAGER.CNM Work Phone: [facility] 12-21-2023 12:57-0500 Body weight 78.47 kg Ruth Plotlynsey ASSISTANT CLINICAL NURSE MANAGER.CNM Work Phone: [facility] 12-15-2023 22:53-0500 Heart rate 208 /min [facility] 12-15-2023 22:53-0500 SaO2% (BldA) [Mass fraction] 80 % [facility] 12-15-2023 22:51-0500 Body temperature 98.3 [degF] [facility] 12-15-2023 22:51-0500 Diastolic blood pressure 86 mm[Hg] [facility] 12-15-2023 22:51-0500 Systolic blood pressure 129 mm[Hg] [facility] 12-15-2023 22:46-0500 Body height 160.02 cm [facility] 12-15-2023 22:46-0500 Body mass index (BMI) [Percentile] Per age and sex 94.7 % [facility] 12-15-2023 22:46-0500 Body mass index (BMI) [Ratio] 30.4 kg/m2 [facility] 12-15-2023 22:46-0500 Body weight 78.1 kg [facility] 12-07-2023 08:19-0500 Body weight 74.66 kg Judy Johnson MD Work Phone: [facility] 12-07-2023 08:19-0500 Diastolic blood pressure 76 mm[Hg] Judy Johnson MD Work Phone: [facility] 12-07-2023 08:19-0500 Systolic blood pressure 120 mm[Hg] Judy Johnson MD Work Phone: [facility] 12-02-2023 08:07-0500 Body weight 73.03 kg Ruth Gopallynsey ASSISTANT CLINICAL NURSE MANAGER.CNM Work Phone: [facility] 12-02-2023 08:07-0500 Diastolic blood pressure 64 mm[Hg] Ruth Ramirez ASSISTANT CLINICAL NURSE MANAGER.CNM Work Phone: [facility] 02-02-2024 08:07-0500 Systolic blood pressure 110 mm[Hg] Ruth Plotts ASSISTANT CLINICAL NURSE MANAGER.CNM Work Phone: [facility] 10-12-2023 11:58-0500 Body weight 68.04 kg Ruth Plotts ASSISTANT CLINICAL NURSE MANAGER.CNM Work Phone: [facility] 10-12-2023 11:58-0500 Diastolic blood pressure 83 mm[Hg] Ruth Plotts ASSISTANT CLINICAL NURSE MANAGER.CNM Work Phone: [facility] 10-12-2023 11:58-0500 Heart rate 82 /min Ruth Plotts ASSISTANT CLINICAL NURSE MANAGER.CNM Work Phone: [facility] 10-12-2023 11:58-0500 Systolic blood pressure 116 mm[Hg] Ruth Plotts ASSISTANT CLINICAL NURSE MANAGER.CNM Work Phone: [facility] 09-07-2023 11:16-0500 Body weight 61.78 kg Destinee Yao ASSISTANT CLINICAL NURSE MANAGER.CNM Work Phone: [facility] 09-07-2023 11:16-0500 Diastolic blood pressure 77 mm[Hg] Destinee Yao ASSISTANT CLINICAL NURSE MANAGER.CNM Work Phone: [facility] 09-07-2023 11:16-0500 Heart rate 73 /min Destinee Yao ASSISTANT CLINICAL NURSE MANAGER.CNM Work Phone: [facility] 09-07-2023 11:16-0500 Systolic blood pressure 117 mm[Hg] Destinee Yao ASSISTANT CLINICAL NURSE MANAGER.CNM Work Phone: [facility] 08-10-2023 09:54-0400 Body weight 58.51 kg Destinee Yao ASSISTANT CLINICAL NURSE MANAGER.CNM Work Phone: [facility] 08-10-2023 09:54-0400 Diastolic blood pressure 85 mm[Hg] Destinee Yao ASSISTANT CLINICAL NURSE MANAGER.CNM Work Phone: [facility] 08-10-2023 09:54-0400 Heart rate 87 /min Destinee Yao ASSISTANT CLINICAL NURSE MANAGER.CNM Work Phone: [facility] 08-10-2023 09:54-0400 Systolic blood pressure 127 mm[Hg] Destinee Yao ASSISTANT CLINICAL NURSE MANAGER.CNM Work Phone: [facility] 07-13-2023 11:13-0400 Body weight 57.61 kg Taylor Tong MD Work Phone: [facility] 07-13-2023 11:13-0400 Diastolic blood pressure 60 mm[Hg] Taylor Tong MD Work Phone: [facility] 07-13-2023 11:13-0400 Systolic blood pressure 102 mm[Hg] Taylor Tong MD Work Phone: [facility] 01-17-2023 14:31-0400 Body weight 58.42 kg Jazzy Etna ASSISTANT CLINICAL NURSE MANAGER.SHELL TRIM TOOL SETTER Work Phone: [facility] 01-17-2023 14:31-0400 Diastolic blood pressure 60 mm[Hg] Jazzy Riley ASSISTANT CLINICAL NURSE MANAGER.SHELL TRIM TOOL SETTER Work Phone: [facility] 01-17-2023 14:31-0400 Systolic blood pressure 110 mm[Hg] Jazzy Riley ASSISTANT CLINICAL NURSE MANAGER.SHELL TRIM TOOL SETTER Work Phone: [facility] 12-27-2022 12:28-0500 Body temperature 98.49 [degF] Parish Pendlebury ASSISTANT CLINICAL NURSE MANAGER.SHELL TRIM TOOL SETTER Work Phone: [facility] 12-27-2022 12:28-0500 Body weight 57.15 kg Parish Pendlebury ASSISTANT CLINICAL NURSE MANAGER.SHELL TRIM TOOL SETTER Work Phone: [facility] 12-27-2022 12:28-0500 Diastolic blood pressure 80 mm[Hg] Parish Pendlebury ASSISTANT CLINICAL NURSE MANAGER.SHELL TRIM TOOL SETTER Work Phone: [facility] 12-27-2022 12:28-0500 Heart rate 89 /min Parish Pendlebury ASSISTANT CLINICAL NURSE MANAGER.SHELL TRIM TOOL SETTER Work Phone: [facility] 12-27-2022 12:28-0500 Respiratory rate 18 /min Parish Pendlebury ASSISTANT CLINICAL NURSE MANAGER.SHELL TRIM TOOL SETTER Work Phone: [facility] 12-27-2022 12:28-0500 SaO2% (BldA) [Mass fraction] 99 % Parish Narvaez ASSISTANT CLINICAL NURSE MANAGER.SHELL TRIM TOOL SETTER Work Phone: [facility] 12-27-2022 12:28-0500 Systolic blood pressure 114 mm[Hg] Parish Narvaez ASSISTANT CLINICAL NURSE MANAGER.SHELL TRIM TOOL SETTER Work Phone: [facility] 10-19-2022 15:18-0500 Body weight 56.79 kg Jazzy Etna ASSISTANT CLINICAL NURSE MANAGER.SHELL TRIM TOOL SETTER Work Phone: [facility] 10-19-2022 15:18-0500 Diastolic blood pressure 60 mm[Hg] Jazzy Riley ASSISTANT CLINICAL NURSE MANAGER.SHELL TRIM TOOL SETTER Work Phone: [facility] 10-19-2022 15:18-0500 Systolic blood pressure 110 mm[Hg] Jazzy Etna ASSISTANT CLINICAL NURSE MANAGER.SHELL TRIM TOOL SETTER Work Phone: [facility] 10-14-2022 19:30-0500 Body height 160.02 cm [facility] Work Phone: 10-14-2022 19:30-0500 Body mass index (BMI) [Percentile] Per age and sex 57.8 % [facility] Work Phone: 10-14-2022 19:30-0500 Body mass index (BMI) [Ratio] 21.7 kg/m2 [facility] Work Phone: 10-14-2022 19:30-0500 Body temperature 97.9 [degF] [facility] Work Phone: 10-14-2022 19:30-0500 Body weight 55.6 kg [facility] Work Phone: 10-14-2022 19:30-0500 Diastolic blood pressure 69 mm[Hg] [facility] Work Phone: 10-14-2022 19:30-0500 Heart rate 86 /min [facility] Work Phone: 10-14-2022 19:30-0500 Respiratory rate 18 /min [facility] Work Phone: 10-14-2022 19:30-0500 SaO2% (BldA) [Mass fraction] 100 % [facility] Work Phone: 10-14-2022 19:30-0500 Systolic blood pressure 123 mm[Hg] [facility] Work Phone: 04-09-2022 14:34-0400 Body temperature 98.2 [degF] Flako Hung APRN.SHELL TRIM TOOL SETTER Work Phone: [facility] 04-09-2022 14:34-0400 Body weight 53.43 kg Flako Hung APRN.SHELL TRIM TOOL SETTER Work Phone: [facility] 04-09-2022 14:34-0400 Diastolic blood pressure 78 mm[Hg] Flako Hung APRN.SHELL TRIM TOOL SETTER Work Phone: [facility] 04-09-2022 14:34-0400 Heart rate 66 /min Flako Hung APRN.SHELL TRIM TOOL SETTER Work Phone: [facility] 04-09-2022 14:34-0400 Respiratory rate 18 /min Flako Hung APRN.SHELL TRIM TOOL SETTER Work Phone: [facility] 04-09-2022 14:34-0400 SaO2% (BldA) [Mass fraction] 99 % Flako Hung APRN.SHELL TRIM TOOL SETTER Work Phone: [facility] 04-09-2022 14:34-0400 Systolic blood pressure 110 mm[Hg] Flako Hung APRN.SHELL TRIM TOOL SETTER Work Phone: [facility] Encounters Encounter Date Encounter Type Care Provider Facility Start: 08-10-2025 End: 08-11-2025 Emergency department patient visit Kalyan Ashraf Facility:[facility] Start: 05-08-2025 End: 05-08-2025 Patient encounter procedure Ruth Ramirez CNM Work Phone: OB/Gynecology Comment on above: Mood changes (Primar y Dx); Nexplanon removal Start: 05-08-2025 End: 05-08-2025 ambulatory SELF Facility:[facility] Start: 03-18-2025 End: 05-18-2025 Follow-up encounter Dayron Cao MD Work Phone: OB/Gynecology Start: 03-14-2025 End: 03-14-2025 Telephone encounter Judy Johnson MD Work Phone: OB/Gynecology Comment on above: Orders Start: 03-14-2025 End: 03-14-2025 ambulatory CAMERON BLANTON Facility:[facility] Start: 03-14-2025 End: 03-14-2025 Nursing evaluation of patient and report Nurse [employer] [facility] Work Phone: OB/Gynecology Comment on above: Need for prophylacti c vaccination/inoculation against viral disease (Primary Dx) Start: 03-13-2025 End: 03-13-2025 Patient encounter procedure Dayron Cao MD Work Phone: OB/Gynecology Comment on above: Vaginal odor (Primar y Dx); Screen for STD (sexually transmitted disease); Retained tampon, subsequent encounter; Need for prophylactic vaccination/inoculation against viral disease Start: 03-13-2025 End: 03-13-2025 ambulatory SELF Facility:[facility] Start: 02-28-2025 End: 02-28-2025 Patient encounter procedure Seble Bolanos APRN.SHELL TRIM TOOL SETTER Work Phone: [facility] Comment on above: Viral URI with cough (Primary Dx) Start: 02-28-2025 ambulatory CAMERON BLANTON Faci lity:[facility] Start: 02-15-2025 End: 04-17-2025 Follow-up encounter Sherron Rodgers APRN.SHELL TRIM TOOL SETTER Work Phone: OB/Gynecology Start: 02-13-2025 End: 02-13-2025 Patient encounter procedure Ruth Ramirez APRN.CNM Work Phone: OB/Gynecology Comment on above: Encounter for gyneco logical examination (general) (routine) without abnormal findings (Primary Dx); Screen for STD (sexually transmitted disease) Start: 02-13-2025 End: 02-13-2025 Patient encounter status Ruth Ramirez APRN.CNM Work Phone: [facility] Start: 02-13-2025 End: 02-13-2025 ambulatory RUTH RAMIREZ Facility:[facility] Start: 02-13-2025 Encounter for gynecological examination (general) (routine) without abnormal findings RUTH RAMIREZ [facility] Start: 01-14-2025 End: 01-14-2025 Patient encounter procedure Pako Newton MD Work Phone: Orthopaedics Comment on above: Patellar tendonitis of right knee (Primary Dx) Start: 01-14-2025 End: 01-14-2025 ambulatory PAKO NEWTON Facility:[facility] Start: 01-14-2025 End: 01-14-2025 Subsequent hospital visit by physician [facility] [place] Work Phone: Radiology Comment on above: Right knee pain, uns pecified chronicity [M25.561] Start: 01-01-2025 End: 01-01-2025 Orders Only Pako Newton MD Work Phone: Orthopaedics Comment on above: Right knee pain, uns pecified chronicity (Primary Dx) Start: 08-28-2024 End: 08-28-2024 ambulatory CAMERON BLANTON Facility:[facility] Start: 08-28-2024 End: 08-28-2024 Patient encounter procedure Flako Hung APRN.SHELL TRIM TOOL SETTER Work Phone: [facility] Comment on above: Ringworm (Primary Dx ) Start: 08-09-2024 Encounter for genera l adult medical examination without abnormal findings BRAULIO HOU [facility] Start: 08-09-2024 End: 08-09-2024 ambulatory CAMERON BLANTON Facility:[facility] Start: 08-09-2024 End: 08-09-2024 Patient encounter procedure Cameron Blanton DO Work Phone: Family Medicine [facility] Comment on above: Routine health maint enance (Primary Dx); Hair loss Start: 08-09-2024 End: 08-09-2024 Patient encounter status Cameron Blanton DO Work Phone: [facility] Work Phone: Start: 07-06-2024 End: 07-06-2024 Subsequent hospital visit by physician Xr [facility] Work Phone: Radiology Comment on above: Acute cough [R05.1] Start: 07-06-2024 End: 07-06-2024 ambulatory BRAULIO HOU Facility:[facility] Start: 07-06-2024 End: 07-06-2024 Patient encounter procedure Braulio RM Work Phone: [facility] Comment on above: Acute cough (Primary Dx); Pneumonia of both lower lobes due to infectious organism Start: 07-01-2024 End: 07-01-2024 ambulatory BRAULIO HOU Facility:[facility] Start: 07-01-2024 End: 07-01-2024 Patient encounter procedure Braulio RM Work Phone: [facility] Comment on above: Sore throat (Primary Dx); Acute otitis media, right; COVID-19 Start: 06-11-2024 ambulatory Susan Francois RN NURSE [employer]ASSOCK [employer]KER Comment on above: FYI-No Action Needed Start: 06-11-2024 Telephone encounter Braulio RM Work Phone: [facility] Comment on above: Results Start: 06-10-2024 End: 06-10-2024 ambulatory BRAULIO HOU Facility:[facility] Start: 06-10-2024 End: 06-10-2024 Patient encounter procedure Braulio RM Work Phone: [facility] Comment on above: Exposure to COVID-19 virus (Primary Dx); Nasal congestion Start: 04-13-2024 End: 04-13-2024 Patient encounter procedure Ruth Ramirez APRN.CNM Work Phone: OB/Gynecology Comment on above: Breakthrough bleedin g on Nexplanon (Primary Dx); Menorrhagia with irregular cycle Start: 03-20-2024 End: 03-20-2024 Patient encounter procedure Nicanor Arias APRN.CNP Work Phone: [facility] Comment on above: Generalized weakness (Primary Dx); Dizziness Start: 02-22-2024 End: 02-22-2024 Patient encounter procedure Ruth Ramirez APRN.CNAlejandro Work Phone: OB/Gynecology Comment on above: Insertion of implant able subdermal contraceptive (Primary Dx) Start: 02-15-2024 End: 02-15-2024 Patient encounter procedure Ruth Ramirez APRN.CNAlejandro Work Phone: OB/Gynecology Comment on above: care and examination (Primary Dx); Acute vaginitis; care and examination of lactating mother Start: 01-18-2024 End: 01-18-2024 Patient encounter procedure Ruth Ramirez APRN.CNAlejandro Work Phone: OB/Gynecology Comment on above: care and examination of lactating mother (Primary Dx); 2 weeks follow-up; Nexplanon insertion; Generalized anxiety disorder Start: 01-03-2024 ambulatory Taylor Mildred Tong MD Work Phone: OB/Gynecology Comment on above: Ob Delivery Note Start: 01-03-2024 End: 01-07-2024 [facility] Work Phone: Start: 01-02-2024 Telephone encounter Ruth calderon APRN.CNAlejandro Work Phone: OB/Gynecology Comment on above: OB Cold/Cough Start: 12-28-2023 End: 12-28-2023 Patient encounter procedure Ruth Ramirez APRN.CNAlejandro Work Phone: OB/Gynecology Comment on above: 40 weeks gestation o f (Primary Dx); Encounter for supervision of normal first in third trimester; Supervision of high risk in third trimester; Generalized anxiety disorder Start: 12-21-2023 End: 12-21-2023 Patient encounter procedure Ruth Ramirez APRN.CNAlejandro Work Phone: OB/Gynecology Comment on above: Supervision of high risk in third trimester (Primary Dx); 39 weeks gestation of ; Generalized anxiety disorder; Elevated blood pressure reading without diagnosis of hypertension Start: 12-15-2023 End: 12-15-2023 ambulatory [facility] Work Phone: Start: 12-15-2023 End: 12-15-2023 Patient encounter procedure [facility] Work Phone: Start: 12-14-2023 End: 12-14-2023 Patient encounter procedure Ruth Ramirez APRN.CNAlejandro Work Phone: OB/Gynecology Comment on above: 38 weeks gestation o f (Primary Dx); Supervision of high risk in third trimester Start: 12-13-2023 ambulatory Karmen Ansari [facility] [place] Comment on above: Population Health Na vigation Outreach (OB/peds) Start: 12-07-2023 End: 12-07-2023 Patient encounter procedure Judy Johnson MD Work Phone: OB/Gynecology Comment on above: 37 weeks gestation o f (Primary Dx); Supervision of high risk in third trimester Start: 12-02-2023 End: 12-02-2023 Patient encounter procedure Ruth Ramirez APRN.CNAlejandro Work Phone: OB/Gynecology Comment on above: Supervision of high risk in third trimester (Primary Dx); 36 weeks gestation of Start: 10-12-2023 End: 10-12-2023 Patient encounter procedure Ruth Ramirez APRN.CNM Work Phone: OB/Gynecology Comment on above: Supervision of high risk in third trimester (Primary Dx); 29 weeks gestation of Start: 09-07-2023 End: 09-07-2023 Patient encounter procedure Destinee Yao APRN.CNAlejandro Work Phone: OB/Gynecology Comment on above: Supervision of tereso l first teen in second trimester (Primary Dx); 24 weeks gestation of ; Supervision of high risk in second trimester Start: 08-10-2023 End: 08-10-2023 Patient encounter procedure [employer] [facility] Work Phone: OB/Gynecology Comment on above: Encounter for anatomic survey (Primary Dx); Supervision of normal first teen in second trimester; 20 weeks gestation of Start: 08-10-2023 End: 08-10-2023 Patient encounter procedure Destinee Yao APRN.SAPNAM Work Phone: OB/Gynecology Comment on above: Supervision of tereso l first teen in second trimester (Primary Dx); 20 weeks gestation of Start: 07-13-2023 End: 07-13-2023 Patient encounter procedure Taylor Tong MD Work Phone: OB/Gynecology Comment on above: Supervision of tereso l first teen in second trimester (Primary Dx); 16 weeks gestation of ; Need for influenza vaccination Start: 06-28-2023 Telephone encounter Judy Johnson MD Work Phone: OB/Gynecology Comment on above: Appointment Start: 06-20-2023 ambulatory Ruth Cote s ASSISTANT CLINICAL NURSE MANAGER.CNM Work Phone: OB/Gynecology Comment on above: Centering Start: 06-20-2023 E-mail encounter fro m caregiver Ruth Ramirez ASSISTANT CLINICAL NURSE MANAGER.CNM Work Phone: [facility] Start: 06-01-2023 End: 06-01-2023 Patient encounter procedure Taylor Tong MD Work Phone: OB/Gynecology Comment on above: with uncer tain dates, antepartum (Primary Dx) Start: 05-27-2023 ambulatory Ruth Kera s ASSISTANT CLINICAL NURSE MANAGER.CNM Work Phone: OB/Gynecology Start: 05-27-2023 E-mail encounter fro m caregiver Ruth Herronlynsey ASSISTANT CLINICAL NURSE MANAGER.CNM Work Phone: [facility] Start: 01-17-2023 End: 01-17-2023 Patient encounter procedure Jazzy Lin ASSISTANT CLINICAL NURSE MANAGER.SHELL TRIM TOOL SETTER Work Phone: OB/Gynecology Comment on above: Encounter for survei llance of transdermal patch hormonal contraceptive device (Primary Dx) Start: 12-27-2022 End: 12-27-2022 Office outpatient visit 15 minutes Parish Narvaez APRN.SHELL TRIM TOOL SETTER Work Phone: [facility] Comment on above: Pharyngitis, unspeci fied etiology (Primary Dx); Viral illness Start: 10-19-2022 End: 10-19-2022 Patient encounter procedure Jazzy Lin SHELL TRIM TOOL SETTER Work Phone: OB/Gynecology Comment on above: Primary amenorrhea ( Primary Dx); Screen for STD (sexually transmitted disease); Encounter for other contraceptive management Start: 10-14-2022 End: 10-14-2022 Emergency department patient visit [facility] Start: 07-19-2022 End: 07-19-2022 ambulatory SELF REFERRED [facility] Start: 04-09-2022 End: 04-09-2022 Patient encounter procedure Flako Hung APRN.CNP Work Phone: [facility] Comment on above: Encounter for screen ing laboratory testing for COVID-19 virus (Primary Dx) Procedures Date Procedure Procedure Detail Performing Clinician Start: 08-10-2025 Urnls dip stick/tabl et reagent auto microscopy No Primary Care Physician Start: 08-10-2025 Estimated creatinine clearance No Primary Care Physician Start: 08-09-2024 H/O: section History of section Flako Hung APRN.CNP Work Phone: Start: 07-06-2024 Radiologic exam ches t 2 views Braulio RM Work Phone: Start: 07-01-2024 STREP A MOLECULAR (POC) Braulio RM Work Phone: Start: 02-22-2024 UA DIP,URINE HCG (POC) Ruth Ramirez APRN.CNAlejandro Work Phone: Start: 12-28-2023 URINE OB DIP B/O Deepak Ramirez APRN.CNAlejandro Work Phone: Start: 12-21-2023 URINE OB DIP B/O Deepak Ramirez APRN.CNAlejandro Work Phone: Start: 12-15-2023 Urine culture Start: 12-07-2023 URINE OB DIP B/O Demetra Johnson MD Work Phone: Start: 10-12-2023 URINE OB DIP B/O Deepak Ramirez ASSISTANT CLINICAL NURSE MANAGER.CNM Work Phone: Start: 09-07-2023 URINE OB DIP B/O Magno Yao ASSISTANT CLINICAL NURSE MANAGER.CNM Work Phone: Start: 08-10-2023 Us preg uterus after 1st trimest 1/ gestation Taylor Tong MD Work Phone: Start: 08-10-2023 URINE OB DIP B/O Magno Yao ASSISTANT CLINICAL NURSE MANAGER.CNM Work Phone: Start: 07-13-2023 INFLUENZA VACCINE, A GE 6 MO - 64 YR, QUADRIVALENT (AFLURIA, FLULAVAL, FLUZONE) Taylor Tong MD Work Phone: Start: 07-13-2023 URINE OB DIP B/O Taylor Tong MD Work Phone: Start: 06-01-2023 Us uterus limited 1/> fetuses Yasmin Cardenas ASSISTANT CLINICAL NURSE MANAGER.SHELL TRIM TOOL SETTER Work Phone: Start: 12-27-2022 STREP A MOLECULAR (POC) Parish Narvaez ASSISTANT CLINICAL NURSE MANAGER.SHELL TRIM TOOL SETTER Work Phone: Viral antigen assay Plan of Treatment Date Care Activity Detail Author Start: 09-30-2033 Urine microalbumin profile DTaP,Tdap,Td Vaccine (8 - Td or Tdap) [facility] Start: 04-21-2027 Urine microalbumin profile DTaP,Tdap,Td Vaccine (7 - Td or Tdap) [facility] Start: 03-21-2026 End: 03-21-2026 Patient encounter procedure 03/21/2026 10:45 AM EDT Office Visit OB/Gynecology [address] [place], [place] [id number] Ruth Ramirez APRN.CN [address] [place], [place] [id number] Annual and Nexplanon Removal OB/Gynecology Comment on above: Annual and Nexplanon Removal Start: 03-13-2026 GC (Gonorrhea) Scree sherry (18-24) GC (Gonorrhea) Screening (18-24) [facility] Start: 03-13-2026 Screening for Chlamy sarthak trachomatis Chlamydia Screening () [facility] Start: 02-13-2026 GC (Gonorrhea) Scree sherry (1824) GC (Gonorrhea) Screening (18-24) [facility] Start: 02-13-2026 Screening for Chlamy sarthak trachomatis Chlamydia Screening () [facility] Start: 09-09-2025 9vhpv vacc 2/3 dose sched im use HPV VACCINE, 9-VALENT (GARDASIL 9) Immunization/Injection Routine Need for prophylactic vaccination/inoculatio n against viral disease Expected: 09/09/2025 (Approximate) [facility] Comment on above: Expected: 09/09/2025 (Approximate) Start: 08-11-2025 US Pelvis transvaginal [facility] Start: 08-11-2025 [facility] Start: 07-15-2025 End: 07-15-2025 Nursing evaluation of patient and report 07/15/2025 9:00 AM EDT Nurse Visit OB/Gynecology [address] [place], [place] [id number] Wstr, Nurse Woodworking Machine Feeder [facility] [address] [place], [place] [id number] HPV vaccine OB/Gynecology Comment on above: HPV vaccine Start: 07-01-2025 Influenza vaccination [facility] Start: 06-17-2025 End: 06-17-2025 Patient encounter procedure 06/17/2025 9:00 AM EDT Office Visit [facility] [address] [place] [address] Cameron Blanton DO [address] [place], [place] [phone] Wellness [facility] Comment on above: Wellness Start: 05-20-2025 End: 05-20-2025 Patient encounter procedure 05/20/2025 9:00 AM EDT Office Visit [facility] [address] [place] [address] Cameron Blanton DO [address] [place] [address] [facility] Comment on above: Wellness Start: 05-12-2025 9vhpv vacc 2/3 dose sched im use HPV VACCINE, 9-VALENT (GARDASIL 9) Immunization/Injection Routine Need for prophylactic vaccination/inoculatio n against viral disease Expected: 05/12/2025 (Approximate) [facility] Comment on above: Expected: 05/12/2025 (Approximate) Start: 05-08-2025 End: 05-08-2025 Patient encounter procedure 05/08/2025 2:45 PM EDT Office Visit OB/Gynecology [address] [place] [address] Ruth Ramirez APRN.CNM [address] [place] [address] Nexplanon Removal OB/Gynecology Comment on above: Nexplanon Removal Start: 05-08-2025 End: 05-08-2025 Patient encounter procedure 05/08/2025 9:30 AM EDT Office Visit OB/Gynecology [address] [place] [address] Ruth Ramirez APRN.CNM [address] [place] [address] Nexplanon Removal OB/Gynecology Comment on above: Nexplanon Removal Start: 03-14-2025 End: 03-14-2025 Nursing evaluation of patient and report 03/14/2025 9:00 AM EDT Nurse Visit OB/Gynecology [address] [place] [address] Wstr, Nurse Woodworking Machine Feeder [facility] [address] [place] [address] hpv vaccine OB/Gynecology Comment on above: hpv vaccine Start: 02-18-2025 End: 02-18-2025 Patient encounter procedure 02/18/2025 11:30 AM EDT Office Visit OB/Gynecology [address] [place] [address] Ruth Ramirez APRN.CNM [address] [place] [address] Annual OB/Gynecology Comment on above: Annual Start: 02-14-2025 End: 02-14-2025 Patient encounter procedure OB/Gynecology Comment on above: Annual Unable to LVM to res chedule /Annual Start: 01-14-2025 End: 01-14-2025 Patient encounter procedure 01/14/2025 3:00 PM EDT Office Visit Orthopaedics [address] [place] [address] Pako Newton MD [address] [place] [address] right knee pain Orthopaedics Comment on above: right knee pain Start: 07-01-2024 Covid-19 Vaccine ( season) Covid-19 Vaccine ( season) [facility] Start: 07-01-2024 Covid-19 Vaccine ( season) Covid-19 Vaccine ( season) [facility] Start: 07-01-2024 Influenza vaccination Influenza Vacc ine (#1) [facility] Start: 06-01-2024 CHLAMYDIA SCREENING (18-24) CHLAMYDIA SCREENING (18-24) [facility] Start: 06-01-2024 GC (GONORRHEA) SCREE SHERRY (18-24) GC (GONORRHEA) SCREENING (18-24) [facility] Start: 06-01-2024 Screening for Chlamy sarthak trachomatis Chlamydia Screening (18-) [facility] Start: 01-07-2024 Patient discharge [facility] Start: 01-06-2024 [facility] Start: 01-04-2024 [facility] Start: 01-04-2024 Application of abdom inal corset [facility] Start: 01-04-2024 Consultation [facility] Start: 01-03-2024 End: 01-04-2024 [facility] Start: 01-03-2024 End: 01-03-2024 Notification of physician [facility] Start: 01-03-2024 Application of abdom inal corset [facility] Start: 01-03-2024 Administration of medication [facility] Start: 01-03-2024 Ambulation therapy management [facility] Start: 01-03-2024 Application of device [facility] Start: 01-03-2024 Application of intermittent pneumatic compression device [facility] Start: 01-03-2024 Assessment of risk o f venous thromboembolism [facility] Start: 01-03-2024 Catheterization of vein [facility] Start: 01-03-2024 Deep breathing and coughing exercises [facility] Start: 01-03-2024 Exercises [facility] Start: 01-03-2024 Measuring intake and output [facility] Start: 01-03-2024 Procedure discontinued [facility] Start: 01-03-2024 Provision of activit y privileges [facility] Start: 01-03-2024 Skin care [facility] Start: 01-03-2024 Vital signs measurements [facility] Start: 01-03-2024 Wound care [facility] Start: 01-03-2024 Admission procedure [facility] Start: 12-15-2023 End: 12-15-2023 [facility] Start: 12-15-2023 Nonstress test [facility] Start: 12-15-2023 Obstetric monitoring [facility] Start: 12-15-2023 Vital signs measurements [facility] Start: 12-15-2023 Patient discharge [facility] Start: 11-01-2023 RSV Vaccine (1 - Ris k 1-dose series) RSV Vaccine (1 - Risk 1-dose series) [facility] Start: 10-31-2023 Behavioral Health Screening Behavioral Health Screening [facility] Start: 10-31-2023 Depression Assessment Depression Ass essment [facility] Start: 09-07-2023 End: 12-07-2023 CBC W Auto Differential panel - Blood CBC + DIFF Lab Routine Supervision of normal first teen in second trimester 24 weeks gestation of Expected: 09/07/2023, Expires: 12/07/2023 [facility] Work Phone: Comment on above: Expected: 09/07/2023 , Expires: 12/07/2023 Start: 09-07-2023 End: 12-07-2023 GEST GLUC SCREEN, 1-HR, 50 GM, NON-FASTING GEST GLUC SCREEN, 1-HR, 50 GM, NON-FASTING Lab Routine Supervision of normal first teen in second trimester 24 weeks gestation of Expected: 09/07/2023, Expires: 12/07/2023 [facility] Work Phone: Comment on above: Expected: 09/07/2023 , Expires: 12/07/2023 Start: 09-07-2023 End: 12-07-2023 SYPHILIS TOTAL W/REFLEX SYPHILIS TOTAL W/REFLEX Lab Routine Supervision of normal first teen in second trimester 24 weeks gestation of Expected: 09/07/2023, Expires: 12/07/2023 [facility] Work Phone: Comment on above: Expected: 09/07/2023 , Expires: 12/07/2023 Start: 07-13-2023 End: 07-13-2024 OBSTETRIC ULTRASOUND WHI OBSTETRIC ULTRASOUND [facility]I Anc Imaging Routine 16 weeks gestation of Supervision of normal first teen in second trimester Expected: 07/13/2023, Expires: 07/13/2024 [facility] Work Phone: Comment on above: Expected: 07/13/2023 , Expires: 07/13/2024 Start: 07-01-2023 Covid-19 Vaccine () Covid-19 Vaccine () [facility] Start: 07-01-2023 Influenza vaccination INFLUENZA (#1) [facility] Start: 06-28-2023 End: 06-28-2024 OBSTETRIC ULTRASOUND WHI OBSTETRIC ULTRASOUND [facility] Anc Imaging Routine 14 weeks gestation of Expected: 06/28/2023, Expires: 06/28/2024 [facility] Work Phone: Comment on above: Expected: 06/28/2023 , Expires: 06/28/2024 Start: 2023 CHLAMYDIA SCREENING (18-24) CHLAMYDIA SCREENING (18-24) [facility] Start: 2023 Depression Screening Depression Scre ening [facility] Start: 2023 GC (GONORRHEA) SCREE SHERRY (18-24) GC (GONORRHEA) SCREENING (18-24) [facility] Start: 2023 HEPATITIS C SCREENING HEPATITIS C SC REENING [facility] Start: 2023 HIV SCREENING HIV SCREENING [facility] Start: 01-16-2023 Meningococcal B Vacc ine (2 of 2 - Bexsero SCDM 2-dose series) Meningococcal B Vaccine (2 of 2 - Bexsero SCDM 2-dose series) [facility] Start: 12-27-2022 End: 01-10-2023 COVID, FLU A/B + RSV, ROUTINE COVID, FLU A/B + RSV, ROUTINE Microbiology Routine Pharyngitis, unspecified etiology Viral illness Expected: 12/27/2022, Expires: 01/10/2023 [facility] Work Phone: Comment on above: Expected: 12/27/2022 , Expires: 01/10/2023 Start: 10-31-2022 DEPRESSION ASSESSMENT DEPRESSION ASS ESSMENT [facility] Start: 08-16-2022 Meningococcal B Vacc ine: Consider Based On Risk (2 of 2 - Risk Bexsero 2-dose series) Meningococcal B Vaccine: Consider Based On Risk (2 of 2 - Risk Bexsero 2-dose series) [facility] Start: 07-01-2022 Influenza vaccination [facility] Start: 04-09-2022 End: 04-23-2022 COVID, FLU A/B + RSV, ROUTINE [facility] Work Phone: Comment on above: Expected: 04/09/2022 , Expires: 04/23/2022 Start: 2021 Meningococcal B Vacc ine: Consider Based On Risk (1 of 2 - Patient Seeks Protection) Meningococcal B Vaccine: Consider Based On Risk (1 of 2 - Patient Seeks Protection) [facility] Start: 2021 MENINGOCOCCAL B: Con holder pile driving based on risk (1 of 2 - Patient Seeks Protection) MENINGOCOCCAL B: Consider based on risk (1 of 2 - Patient Seeks Protection) [facility] Start: 2021 MENINGOCOCCAL CONJUG ATE (1 - 2-dose series) MENINGOCOCCAL CONJUGATE (1 - 2-dose series) [facility] Start: 2021 Meningococcal Conjug ate Vaccine (1 - 2-dose series) Meningococcal Conjugate Vaccine (1 - 2-dose series) [facility] Start: 2020 CHLAMYDIA SCREENING (<18) CHLA MYDIA SCREENING (<18) [facility] Start: 2020 GC (GONORRHEA) SCREE SHERRY (<18) GC (GONORRHEA) SCREENING (<18) [facility] Start: 12-15-2019 HPV Vaccine (2 - 2-d ose series) HPV Vaccine (2 - 2-dose series) [facility] Start: 2019 PEDS TO ADULT TRANSI TION ANNUAL ASSESSMENT PEDS TO ADULT TRANSITION ANNUAL ASSESSMENT [facility] Start: 2017 Adult depression screening assessment DEPRESSION SCREENING [facility] Start: 2017 PEDS TO ADULT TRANSI TION INITIAL DISCUSSION PEDS TO ADULT TRANSITION INITIAL DISCUSSION [facility] Start: 2016 HPV VACCINE (1 - 2-d ose series) HPV VACCINE (1 - 2-dose series) [facility] Start: 2015 MENINGOCOCCAL B: Con holder pile driving based on risk (1 of 2 - Risk Bexsero 2-dose series) MENINGOCOCCAL B: Consider based on risk (1 of 2 - Risk Bexsero 2-dose series) [facility] Start: 2014 HPV VACCINE (1 - 2-d ose series) HPV VACCINE (1 - 2-dose series) [facility] Start: 2012 Urine microalbumin profile [facility] Start: 2010 COVID-19 VACCINE (#1) COVID-19 VACCI NE (#1) [facility] Start: 2006 MMR (1 of 2 - Standa rd series) MMR (1 of 2 - Standard series) [facility] Start: 2006 VARICELLA (1 of 2 - 2-dose childhood series) VARICELLA (1 of 2 - 2-dose childhood series) [facility] Start: 2005 COVID-19 VACCINE (#1) COVID-19 VACCI NE (#1) [facility] Start: 2005 POLIO (1 of 3 - 4-do se series) POLIO (1 of 3 - 4-dose series) [facility] Start: 2005 HEPATITIS B (1 of 3 - 3-dose primary series) [facility] Start: 2005 Hepatitis B Vaccine (1 of 3 - 3-dose series) Hepatitis B Vaccine (1 of 3 - 3-dose series) [facility] Bacteria identified in Urine by Culture [facility] BACTERIAL VAGINOSIS NAAT BACTERI AL VAGINOSIS NAAT Lab Routine care and examination 02/15/2024 8:47 AM T [facility] Work Phone: BACTERIAL VAGINOSIS NAAT BACTERI AL VAGINOSIS NAAT Lab Routine Vaginal odor 03/13/2025 10:48 AM [facility] ROXANN/TRICHOMONAS NAAT ROXANN /TRICHOMONAS NAAT Lab Routine care and examination 02/15/2024 8:47 AM [facility] Work Phone: ROXANN/TRICHOMONAS NAAT ROXANN /TRICHOMONAS NAAT Lab Routine Vaginal odor 03/13/2025 10:48 AM T [facility] Chlamydia trachomatis+Neisseria gonorrhoeae DNA [Presence] in Unspecified specimen by SOWMYA with probe detection GONORRHEA/CHLAMYDIA NAAT Lab Routine Screen for STD (sexually transmitted disease) Ordered: 02/13/2025 [facility] Comment on above: Ordered: 02/13/2025 Chlamydia trachomatis+Neisseria gonorrhoeae DNA [Presence] in Unspecified specimen by SOWMYA with probe detection GONORRHEA/CHLAMYDIA NAAT Lab Routine Vaginal odor Screen for STD (sexually transmitted disease) 03/13/2025 10:48 AM T [facility] Chlamydia trachomatis+Neisseria gonorrhoeae DNA [Presence] in Urine by SOWMYA with probe detection GC/CHLAMYDIA AMPLIF, URINE Microbiology Routine Screen for STD (sexually transmitted disease) Ordered: 10/19/2022 [facility] Work Phone: Comment on above: Ordered: 10/19/2022 NEXPLANON INSERTION NEXPLANON IN SERTION Procedures Routine Nexplanon insertion Ordered: 01/18/2024 [facility] Work Phone: Comment on above: Ordered: 01/18/2024 NEXPLANON INSERTION NEXPLANON IN SERTION Procedures Routine Insertion of implantable subdermal contraceptive Ordered: 02/22/2024 [facility] Work Phone: Comment on above: Ordered: 02/22/2024 NEXPLANON REMOVAL NEXPLANON ANSELMO SUNITA Procedures Routine Ordered: 02/13/2025 [facility] Work Phone: Comment on above: Ordered: 02/13/2025 Patient Education [facility] Work Phone: Patient referral [facility] Work Phone: ROUTINE FLU A/B + RSV ROUTINE FL U A/B + RSV Lab Routine Encounter for screening laboratory testing for COVID-19 virus 04/09/2022 3:40 PM EDT [facility] Work Phone: ROUTINE FLU A/B + RSV ROUTINE FL U A/B + RSV Lab Routine Pharyngitis, unspecified etiology Viral illness Ordered: 12/27/2022 [facility] Work Phone: Comment on above: Ordered: 12/27/2022 ROUTINE, GR OUP B STREP PCR ROUTINE, GROUP B STREP PCR Microbiology Routine 36 weeks gestation of 12/02/2023 8:36 AM EST [facility] Work Phone: SARS-CoV-2 (COVID-19 ) RNA [Presence] in Respiratory specimen by SOWMYA with probe detection 2019 CORONAVIRUS Microbiology Routine Encounter for screening laboratory testing for COVID-19 virus 04/09/2022 3:40 PM EDT [facility] Work Phone: SARS-CoV-2 (COVID-19 ) RNA [Presence] in Respiratory specimen by SOWMYA with probe detection 2019 CORONAVIRUS Microbiology Routine Pharyngitis, unspecified etiology Viral illness Ordered: 12/27/2022 [facility] Work Phone: Comment on above: Ordered: 12/27/2022 SARS-CoV-2 (COVID-19 ) RNA [Presence] in Respiratory specimen by SOWMYA with probe detection COVID NAAT, UPPER RESPIRATORY, ROUTINE Microbiology Routine Exposure to COVID-19 virus Nasal congestion 06/10/2024 3:17 PM EDT [facility] Work Phone: Therapeutic prophylactic/dx injection subq/im THER/PROPH/DIAG INJ, SC/IM Procedures Routine Need for prophylactic vaccination/inoculatio n against viral disease Ordered: 03/13/2025 [facility] Work Phone: Comment on above: Ordered: 03/13/2025 TRICHOMONAS VAGINALI S NAAT TRICHOMONAS VAGINALIS NAAT Lab Routine Screen for STD (sexually transmitted disease) Ordered: 02/13/2025 [facility] Comment on above: Ordered: 02/13/2025 URINE OB DIP B/O URINE OB DIP B/ O Lab Routine 36 weeks gestation of Ordered: 12/02/2023 [facility] Work Phone: Comment on above: Ordered: 12/02/2023 End: 01-31-2026 XR Knee - right 4 Views XR KNEE GENERAL 4V AP BOTH/PA BOTH/LAT/MERC RIGHT Radiology Routine Right knee pain, unspecified chronicity 1 Occurrences starting 01/01/2025 until 01/31/2026 [facility] Work Phone: Comment on above: 1 Occurrences starti ng 01/01/2025 until 01/31/2026 XR Knee - right 4 Views XR KNEE GENERAL 4V AP BOTH/PA BOTH/LAT/MERC RIGHT Radiology Routine Right knee pain, unspecified chronicity 01/14/2025 2:52 PM EDT [facility] Work Phone: [facility] Immunizations Immunization Date Immunization Notes Care Provider Fa cili 03-14-2025 Human Papillomavirus 9-valent vaccine Judy Johnson MD Work Phone: [facility] 09-30-2023 tetanus toxoid, redu waqas diphtheria toxoid, and acellular pertussis vaccine, adsorbed Ruth Ramirez ASSISTANT CLINICAL NURSE MANAGER.CNM Work Phone: [facility] 07-13-2023 influenza, injectabl e, quadrivalent, contains preservative Taylor Tong MD Work Phone: [facility] 07-13-2023 influenza virus vacc ine, unspecified formulation Braulio RM Work Phone: [facility] 07-19-2022 meningococcal (MenACWY-TT) vaccine, quadrivalent (MENQUADFI) Judy Johnson MD Work Phone: [facility] Work Phone: 07-19-2022 meningococcal B vacc ine, recombinant, OMV, adjuvanted Judy Johnson MD Work Phone: [facility] Work Phone: 06-14-2019 Human Papillomavirus 9-valent vaccine Judy Johnson MD Work Phone: [facility] Work Phone: 05-18-2017 meningococcal polysaccharide (groups A, C, Y and W-135) diphtheria toxoid conjugate vaccine (MCV4P) Judy Johnson MD Work Phone: [facility] Work Phone: 04-21-2017 tetanus toxoid, redu waqas diphtheria toxoid, and acellular pertussis vaccine, adsorbed Judy Johnson MD Work Phone: [facility] Work Phone: 08-11-2016 influenza, injectabl e, quadrivalent, preservative free Judy Johnson MD Work Phone: [facility] Work Phone: 10-09-2015 influenza, live, intranasal, quadrivalent Judy Johnson MD Work Phone: [facility] Work Phone: 07-30-2014 influenza, live, intranasal, quadrivalent Judy Johnson MD Work Phone: [facility] Work Phone: 05-15-2010 diphtheria, tetanus toxoids and acellular pertussis vaccine, unspecified formulation Judy Johnson MD Work Phone: [facility] Work Phone: 05-15-2010 measles, mumps, rube lla, and varicella virus vaccine Judy Johnson MD Work Phone: [facility] Work Phone: 05-15-2010 poliovirus vaccine, inactivated Judy Johnson MD Work Phone: [facility] Work Phone: 10-17-2008 influenza virus vacc ine, live, attenuated, for intranasal use Judy Johnson MD Work Phone: [facility] Work Phone: 12-16-2006 hepatitis A vaccine, pediatric/adolescent dosage, 2 dose schedule Judy Johnson MD Work Phone: [facility] Work Phone: 12-16-2006 varicella virus vaccine Jessica Johnson MD Work Phone: [facility] Work Phone: 10-07-2006 diphtheria, tetanus toxoids and acellular pertussis vaccine, unspecified formulation Judy Johnson MD Work Phone: [facility] Work Phone: 10-07-2006 influenza virus vacc ine, whole virus Judy Johnson MD Work Phone: [facility] Work Phone: 10-07-2006 pneumococcal conjuga te vaccine, 7 valent Judy Johnson MD Work Phone: [facility] Work Phone: 05-20-2006 haemophilus influenz ae type b conjugate and Hepatitis B vaccine Judy Johnson MD Work Phone: [facility] Work Phone: 05-20-2006 hepatitis A vaccine, pediatric/adolescent dosage, 2 dose schedule Judy Johnson MD Work Phone: [facility] Work Phone: 05-20-2006 measles, mumps and rubella virus vaccine Judy Johnson MD Work Phone: [facility] Work Phone: 02-18-2006 poliovirus vaccine, inactivated Judy Johnson MD Work Phone: [facility] Work Phone: 2005 diphtheria, tetanus toxoids and acellular pertussis vaccine, unspecified formulation Judy Johnson MD Work Phone: [facility] Work Phone: 2005 haemophilus influenz ae type b vaccine, PRP-T conjugate Judy Johnson MD Work Phone: [facility] Work Phone: 2005 influenza virus vacc ine, whole virus Judy Johnson MD Work Phone: [facility] Work Phone: 2005 pneumococcal conjuga te vaccine, 7 valent Judy Johnson MD Work Phone: [facility] Work Phone: 2005 diphtheria, tetanus toxoids and acellular pertussis vaccine, unspecified formulation Judy Johnson MD Work Phone: [facility] Work Phone: 2005 haemophilus influenz ae type b vaccine, PRP-T conjugate Judy Johnson MD Work Phone: [facility] Work Phone: 2005 pneumococcal conjuga te vaccine, 7 valent Judy Johnson MD Work Phone: [facility] Work Phone: 2005 poliovirus vaccine, inactivated Judy Johnson MD Work Phone: [facility] Work Phone: 2005 diphtheria, tetanus toxoids and acellular pertussis vaccine, unspecified formulation Judy Johnson MD Work Phone: [facility] Work Phone: 2005 haemophilus influenz ae type b conjugate and Hepatitis B vaccine Judy Johnson MD Work Phone: [facility] Work Phone: 2005 pneumococcal conjuga te vaccine, 7 valent Judy Johnson MD Work Phone: [facility] Work Phone: 2005 poliovirus vaccine, inactivated Judy Johnson MD Work Phone: [facility] Work Phone: 2005 hepatitis B vaccine, pediatric or pediatric/adolescent dosage Judy Johnson MD Work Phone: [facility] Work Phone: Payers Date Payer Category Payer Self-pay 2023 Medicaid [id number] 2023 Medicaid [id number] 2021 Unknown [employer] PPO [id number] 2021-Present [phone] [address] [place] [address] PPO [id number] 2018 Private Health Insurance [id number] 2018 Unknown [id number] 2005 Unknown [id number] Unknown [id number] Unknown [id number] Social History Date Type Detail Facility Start: 10-14-2022 End: 01-03-2024 Tobacco smoking status NHIS Tobacco smoking consumption unknown [facility] Start: 2005 Sex Assigned At Not on file [facility] Start: 03-30-2022 End: 04-09-2022 Exposure to SARS-CoV-2 (event) Not sure [facility] Start: 2005 Sex Assigned At Female [facility] Start: 10-19-2022 End: 08-10-2025 Tobacco smoking status NHIS Never smoked tobacco [facility] Work Phone: Start: 10-19-2022 Tobacco use and exposure Smokeless tobacco non-user [facility] Work Phone: Start: 10-19-2022 End: 07-06-2024 Alcohol intake Lifetime non-drinker (finding) [facility] Start: 01-17-2023 End: 03-13-2025 History of Social function [facility] Work Phone: Start: 01-17-2023 End: 03-13-2025 Tobacco use panel [facility] Work Phone: National Score (1-10 0), lower number is lower risk 51 [facility] The thought of kenny bates myself has occurred to me Never [facility] Work Phone: Start: 04-05-2023 [facility] Start: 08-28-2024 End: 03-13-2025 Alcoholic beverage intake Ex-drinker (finding) [facility] Do you belong to any clubs or organizations such as voodoo groups, unions, fraternal or athletic groups, or school groups? No [facility] Are you now , , , , never or living with a partner? Living with partner [facility] How hard is it for y ou to pay for the very basics like food, housing, medical care, and heating Somewhat hard [facility] Do you feel stress - tense, restless, nervous, or anxious, or unable to sleep at night because your mind is troubled all the time - these days [OSQ] To some extent [facility] (I/We) worried wheth er (my/our) food would run out before (I/we) got money to buy more. Often true [facility] In the past 12 month s, was there a time when you were not able to pay the mortgage or rent on time? Yes [facility] Goals Date Patient Goal Desired Activity /State Mental Status Date Assessment Result Facility 01-04-2024 Cognitive function Voice/Name [facility] Work Phone: 10-14-2022 Cognitive function Level Of Cons ciousness Awake;Alert;Appropriate;Follow s Commands [facility] Work Phone: Clinical Notes 04-09-2022 to 08-11-2025 Patient InstructionsRuth Ramirez APRN.CN - 05/08/2025 9:22 AM EDTPatient InstructionsUnruly Dozier LPN - 03/14/2025 9:09 AM EDTTelephone Encounter - Crista Hung MD - 03/14/2025 9:08 AM EDT Note Date & Type Note Facility 08-11-2025 Discharge summary [facility] 05-08-2025 Instructions Ruth Ramirez APRN.[facility] - 05/08/2025 9:29 AM EDT Here are some links for wonderful Providers here in the community and surrounding areas. Do not hesitate to contact their offices, many are offering virtual visits during this time. [phone] - [place] Maternal Mental Health Hotline If you are in suicidal crisis, please call or text 3-377-838-TALK ( ) or visit the National Suicide Prevention Lifeline website. mchb.hrsa.gov [facility] Psychology, Psychiatry, Counseling Connect with therapist/ can do virtual visits [phone] Referral to the [facility] To schedule an appointment, please call the [place] [facility] Appointment Line: [phone] option 1 [facility] [place], [place] [address] [facility] [address] [place] [address] [facility] [address] [place] [address] [facility] [address] [place] [address] Monica Marshall MD [address] [place] [address] [facility] [address] [facility], [address] [place] [address] [facility] [address] [place] [address] [facility] Services [place] / [place] [phone]/ [phone] Kam Rosas [address] [facility] [address] [facility] [phone] [facility] [place] / [place] [phone] [facility] [address] [place] [address]/ [place] [facility] [place] [phone] Eliana Soler, KARL, CLC [facility] Workshops, telehealth and at home visits. [phone] Humanistic counseling center 20 locations [facility], [place], [place], [place], [place], [place], [facility], [place], [place], [place], [place], [place], [place], [facility], [place], [place] ,[facility], [place], [place],[facility], [facility], [place], [facility], [facility], [place] www.PFI AcquisitioncoiRatesmarmet hospital for crippled childrenPromoteSocial.FastSpring [phone] Psychotherapy resources outside of [facility] are listed below [facility] WARREN Piña, CONSUELO-Leatha [phone] Revival.clientsecure.id [address] [place], [place] [address] *Trauma therapy, EMDR, in person or virtual visit. Accepts some insurances. [employer] [phone] [facility] [place] [id number] [facility] Web: https://www.holdingspaceclemindSHIFT Technologies/ Support International Online Provider Directory https://Dolphin Geeks/ [facility] https://Language Logistics/ Partners [facility] Behavioral Health and Wellness Web: https://makr/ Campus Job for Effective Living Web: https://SupponorlivingmindSHIFT Technologies/ LifeStance Web: https://Quietyme/location/state/[place]/ [facility] Web: https://www.[facility].org/ [facility] Web: https://Bitave Lab/ Recovery Resources Mental health and substance abuse help Web: https://www.RoomReveal [facility] [address] [facility] [address] www.GamingTurf & RESOURCES Support International Direct peer support and connection to professional resources Non-Emergency Helpline Phone: / Text: [phone] Web: https://www..net/ Online Provider Directory: https://Dolphin Geeks/ Online Support Meetings: https://www..net/get-help/kuh-ylkabl-keygvlm-meetings/ SUDHIR Baby and Air Tank Assembler Services Web: https://wwwSimuForm/ MotherSwypeShield Expert information on medication use during and Text: [phone] Web: https://Plethora/ NATIONAL REGISTRY FOR PSYCHIATRIC MEDICATIONS Currently studying the safety of antidepressants, ADHD medications and atypical antipsychotics taken during TO PARTICIPATE CALL TOLL-FREE: Web: https://womensmentalhealth.org/research/pregnancyregistry/ Support Groups: [facility]- Follow on facebook Baby Bistro support group led by [facility] department [facility] Mamas - Support Group [place] [facility] Health[facility].org The POEM support group [phone] Www.poCalStar Productsonline.org Follow on facebook - TA sy Online support meetings PSI https://www..net/get-help/shj-xfuiib-twyvbgv-meetings/ CC mommy and me virtual support group 11:30-1pm Support for mothers and new babies and toddlers Bond childbirth education: Childbirth @ccf.org or call [phone] Support groups Online support meetings PSI https://www..net/get-help/qcn-nomuqf-boofmxj-meetings/ Here are the support groups they offer: Support of parents of 1 to 4 years old children POEM ( Outreach and Encouragement for Moms) offers free support for mothers experiencing depression, anxiety, and other mood and anxiety disorders. Masks are recommended but not required. No pre-registration required. Babies in arms welcome. meetings now take place on the and Tuesday of each month Location: [facility] [address] [place] [id number] Room 122 (library room) 7-8:00 p.m. When you enter the voodoo parking lot off of [address] the entrance door closest to our meeting room is on the front of the building toward the right. For those who are more comfortable with a virtual platform, POEM offers online support group options several days of the week. To register for an online group or to find out more about POEM, website at: https://mhaohio.org/get-help/qoaalocp-munakb-djjbub/poem-services/ offer a confidential helpline: private Facebook group is called TA Sy Here are the groups they offer: Traumatic childbirth resources: Http://pattch.org/ https://www.ZoomSaferkelleyBest Teacher.FastSpring/ CRISIS: CRISIS HOTLINE 491.192.3174534.995.5698, 911 or go to the nearest . [facility] [phone] / [facility] [phone] https://www.central park hospitalrb.org Crisis text line text the word HOME to [id number] documented in this encounter [facility] 05-08-2025 Note HNO ID: [id number] Author: RUTH RAMIREZ APRN.CNM Service: ? Author Type: Accounts Officer Type: Progress Notes Filed: 05/08/2025 09:45 Note Text: Marisol is a 19 year old who presents for Nexplanon removal for mood changes and heavy periods. UNIVERSAL PROTOCOL / SAFETY CHECKLIST Procedure to be Performed: Implanon/Nexplanon (contraceptive subdermal implant) removal Sign In: A Moment of CARE was completed. Appropriate PPE (Personal Protective Equipment) worn by all providers involved with the procedure. Special equipment not required. Patient/Surrogate Stated/Verified: Patient name, Date of , Relevant allergies, and The intended procedure Time Out: Relevant labs, photos, and/or imaging studies are not applicable. Intended patient and procedure match the source document(s) (e.g. consent, HANDP, associated studies [imaging, pathology]) match the intended patient and procedure. Consent obtained and matches the intended procedure. Yes. Correct side/site is not applicable. Medications required for this procedure are verified. Fire risk assessed and is not applicable. Implants: are not applicable. Sign Out: Specimens not collected. All instruments, equipment, possible retained foreign bodies are accounted for. Yes. The post-procedure plan of care has been communicated to the patient or surrogate. TECHNIQUE: Patient placed in supine position with left arm bent at the elbow and placed over the head. Skin cleansed with betadine. 1mL of 1% lidocaine with epi injected subQ along insertion site. Scalpel used to made a 5mm stab incision superficially at distal end of Nexplanon. Device removed under sterile technique with a small hemostat. Sterile pressure dressing applied. AANDP: 19 year old here for Nexplanon removal Nexplanon removed intact without difficulty. The patient was instructed to remove the dressing after 24 hours. Contraceptive plans unsure- condom use encouraged Ruth Ramirez APRN.CNM [facility] 05-08-2025 History of Present illness Narrative Formatting of this note might be differe nt from the original. Marisol is a 19 year old who presents for Nexplanon removal for mood changes and heavy periods. UNIVERSAL PROTOCOL / SAFETY CHECKLIST Procedure to be Performed: Implanon/Nexplanon (contraceptive subdermal implant) removal Sign In: A Moment of CARE was completed. Appropriate PPE (Personal Protective Equipment) worn by all providers involved with the procedure. Special equipment not required. Patient/Surrogate Stated/Verified: Patient name, Date of , Relevant allergies, and The intended procedure Time Out: Relevant labs, photos, and/or imaging studies are not applicable. Intended patient and procedure match the source document(s) (e.g. consent, H&P, associated studies [imaging, pathology]) match the intended patient and procedure. Consent obtained and matches the intended procedure. Yes. Correct side/site is not applicable. Medications required for this procedure are verified. Fire risk assessed and is not applicable. Implants: are not applicable. Sign Out: Specimens not collected. All instruments, equipment, possible retained foreign bodies are accounted for. Yes. The post-procedure plan of care has been communicated to the patient or surrogate. TECHNIQUE: Patient placed in supine position with left arm bent at the elbow and placed over the head. Skin cleansed with betadine. 1mL of 1% lidocaine with epi injected subQ along insertion site. Scalpel used to made a 5mm stab incision superficially at distal end of Nexplanon. Device removed under sterile technique with a small hemostat. Sterile pressure dressing applied. A&P: 19 year old here for Nexplanon removal Nexplanon removed intact without difficulty. The patient was instructed to remove the dressing after 24 hours. Contraceptive plans unsure- condom use encouraged Ruth Ramirez APRN.CNM documented in this encounter [facility] 03-14-2025 Instructions Unruly Dozier LPN - 03/14/2025 9:12 AM EDT Gardasil Gardasil is a vaccine to protect against Human Papillomavirus (HPV) types 6, 11, 16, 18, 31,33,45, 52, 58. These viruses cause cancer and precancerous lesions on the cervix (opening between vagina and uterus), in the vagina and on the vulva (skin around the outside of the vagina) as well as genital warts. The vaccine cannot cause these diseases and cannot treat them if already present. Gardasil works best if given before contact with HPV. Most people are exposed to HPV soon after starting sexual activity. The vaccine is recommended between the ages of 9 and 45. Gardasil does not protect against all strains of HPV. Women who receive the vaccine still need to have regular pelvic exams and cervical cancer screening with the pap smear. You should ask your doctor if Gardasil is right for you if you have a weakened immune system, a bleeding disorder, plan to become soon or have a current illness causing fever. Gardasil is not recommended for women. You should be sure your doctor is aware of any allergies you have and all medications and herbal supplements you take. Gardasil is given to those ages 9-14 in 2 doses at 0 and 8 months. In ages 15-45, three injections are given at 0,2,6 months. Common side effects include pain, redness, itching and swelling at the injection site, nausea, fever, dizziness and fainting. Rare but potentially serious reactions have been reported. These include allergic reaction, swollen glands, joint and muscle pain, weakness and Guillain-[place] syndrome. documented in this encounter [facility] 03-14-2025 Note HNO ID: [id number] Author: UNRULY DOZIER LPN Service: ? Author Type: LICENSED NURSE Type: Progress Notes Filed: 03/14/2025 10:57 Note Text: Patient identified by name and date of . Marisol Ponce is here for her HPV Gardasil vaccination, injection # two of the series. Patient ?No Nexplanon Gardasil injection was given without incident. See immunizations for details of immunizations administered today. VIS sheet provided: Yes Patient advised to follow up in 4 months from the 2nd injection Provider Dr Celine Light was present in office at time of injection. Unruly Dozier LPN [facility] 03-14-2025 History of Present illness Narrative Formatting of this note might be differe nt from the original. Patient identified by name and date of . Marisol Ponce is here for her HPV Gardasil vaccination, injection # two of the series. Patient ?No Nexplanon Gardasil injection was given without incident. See immunizations for details of immunizations administered today. VIS sheet provided: Yes Patient advised to follow up in 4 months from the 2nd injection Provider Dr Celine Light was present in office at time of injection. Unruly Dozier LPN documented in this encounter [facility] 03-14-2025 Telephone encounter Note Formatting of this note might be differe nt from the original. Filed Crista Hung MD [facility] Work Phone: 03-14-2025 Miscellaneous Notes Formatting of this note might be differe nt from the original. Filed Crista Hung MD Please file HPV vaccine order for nurse visit today. She saw AT yesterday, but orders placed cannot be released d/t future dates that were placed with it. Myla Garcia RN documented in this encounter [facility] 03-14-2025 Telephone encounter Note Formatting of this note might be differe nt from the original. Please file HPV vaccine order for nurse visit today. She saw AT yesterday, but orders placed cannot be released d/t future dates that were placed with it. Myla Garcia RN [facility] 03-13-2025 Note Addended by: DAYRON CAO on: 03/13 10:21 AM Modules accepted: Orders [facility] 03-13-2025 Miscellaneous Notes Addended by: DAYRON CAO on: 03/13 10:21 AM Modules accepted: Orders Addended by: MAYLIN MALIK on: 03/13/2025 10:20 AM Modules accepted: Orders documented in this encounter [facility] 03-13-2025 Note Addended by: MAYLIN MALIK on: 03/13/2025 10:20 AM Modules accepted: Orders [facility] 03-13-2025 Instructions Maylin Malik MA - 03/13/2025 10:20 AM EDT Gardasil Gardasil is a vaccine to protect against Human Papillomavirus (HPV) types 6, 11, 16, 18, 31,33,45, 52, 58. These viruses cause cancer and precancerous lesions on the cervix (opening between vagina and uterus), in the vagina and on the vulva (skin around the outside of the vagina) as well as genital warts. The vaccine cannot cause these diseases and cannot treat them if already present. Gardasil works best if given before contact with HPV. Most people are exposed to HPV soon after starting sexual activity. The vaccine is recommended between the ages of 9 and 45. Gardasil does not protect against all strains of HPV. Women who receive the vaccine still need to have regular pelvic exams and cervical cancer screening with the pap smear. You should ask your doctor if Gardasil is right for you if you have a weakened immune system, a bleeding disorder, plan to become soon or have a current illness causing fever. Gardasil is not recommended for women. You should be sure your doctor is aware of any allergies you have and all medications and herbal supplements you take. Gardasil is given to those ages 9-14 in 2 doses at 0 and 8 months. In ages 15-45, three injections are given at 0,2,6 months. Common side effects include pain, redness, itching and swelling at the injection site, nausea, fever, dizziness and fainting. Rare but potentially serious reactions have been reported. These include allergic reaction, swollen glands, joint and muscle pain, weakness and Guillain-[place] syndrome. documented in this encounter [facility] 03-13-2025 Note HNO ID: [id number] Author: DAYRON CAO MD Service: ? Author Type: Physician Type: Progress Notes Filed: 03/13/2025 10:17 Note Text: Used Equipment Sales Representative provided by Unruly Dozier LPN. Marisol Ponce is a 19 year old female who presents for problem visit vaginal odor, discharge unprotected intercourse ~ 03/01/25, symptoms x1 wk. 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: [employer] History Comments: Sexual Activity: Yes; Male Contraception: Implant Menstrual Tracking History Flowsheet Row Office Visit from 02/13/2025 in OB/Gynecology Period Cycle (Days) 6 Period Duration (Days) 5 Menstrual Flow Moderate PAST MEDICAL HISTORY Diagnosis Date ADHD (attention deficit hyperactivity disorder), combined type 07/08/2015 Generalized anxiety disorder 06/01/2023 PAST SURGICAL HISTORY Procedure Laterality Date SECTION HX 12/2023 NEXPLANON INSERTION 02/22/2024 Placed in left arm NONE FAMILY HISTORY Adopted: Yes Problem Relation Age of Onset No Known Problems Mother No Known Problems Father Social History Tobacco Use Smoking status: Never Smokeless tobacco: Never Vaping Use Vaping status: Never Used Substance Use Topics Alcohol use: Not Currently Drug use: Never Current Outpatient Medications Medication Sig fluticasone (FLONASE) 50 mcg/actuation nasal spray Use 2 sprays in each nostril once daily. meloxicam (MOBIC) 15 mg tablet Take 1 tablet by mouth once daily. etonogestrel (NEXPLANON) subdermal implant 68 mg 1 Each by SUBDERMAL route as directed. No current facility-administered medications for this visit. Allergies As of Date: 03/13/2025 Allergen Noted Reaction FD AND C RED NO.40 01/27/2016 GI Upset Fully Assessed 02/28/2025 REVIEW OF SYSTEMS Abdomen: No bloating, early satiety, indigestion, or increased flatulence. No abdominal pain, nausea, vomiting, diarrhea, or constipation. Bladder: No dysuria, gross hematuria, urinary frequency, urinary urgency, or incontinence. Breast: No breast lumps, nipple d/c, overlying skin changes, redness or skin retraction. Expanded ROS: N/A Allergies and current medication updated:Yes SENSITIVE EXAM: The sensitive examination was discussed with the Patient or Patient's Authorized Cashier. As applicable, any other physician, advance practice provider, medical student, or other health professional student that will be observing or involved in the sensitive examination for educational or training purposes was discussed with the Patient or Authorized Cashier. The Patient or Authorized Cashier has agreed to proceed with the sensitive examination. (Sensitive examination includes inspection and/or palpation of the breasts, pelvis, prostate and anorectal regions). EXAM: LMP 02/28/2025 GENERAL: pleasant, female in no apparent distress ABDOMEN: soft, non-tender, and no masses PELVIC: external genitalia normal, normal Bartholin's glands, urethra, [place]'s glands, no vulvar lesions, no cervical lesions, good vaginal support, physiologic discharge present, normal appearing perineal body and perianal region, Retained Tampon BIMANUAL: uterus normal size, shape and consistency, no adnexal masses, and non-tender ASSESSMENT AND PLAN: Assessment AND Plan Vaginal odor Orders: ROXANN/TRICHOMONAS NAAT BACTERIAL VAGINOSIS NAAT GONORRHEA/CHLAMYDIA NAAT Screen for STD (sexually transmitted disease) Orders: GONORRHEA/CHLAMYDIA NAAT TRICHOMONAS VAGINALIS NAAT Retained tampon, subsequent encounter Tampon removed Unprotected intercourse STI screening submitted. ftft >30m Dayron Cao MD [facility] 03-13-2025 History of Present illness Narrative Formatting of this note is different fro m the original. Used Equipment Sales Representative provided by Unruly Dozier LPN. Marisol Ponce is a 19 year old female who presents for problem visit vaginal odor, discharge unprotected intercourse ~ 03/01/25, symptoms x1 wk. 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: [employer] History Comments: Sexual Activity: Yes; Male Contraception: Implant Menstrual Tracking History Flowsheet Row Office Visit from 02/13/2025 in OB/Gynecology Period Cycle (Days) 6 Period Duration (Days) 5 Menstrual Flow Moderate PAST MEDICAL HISTORY Diagnosis Date ADHD (attention deficit hyperactivity disorder), combined type 07/08/2015 Generalized anxiety disorder 06/01/2023 PAST SURGICAL HISTORY Procedure Laterality Date SECTION HX 12/2023 NEXPLANON INSERTION 02/22/2024 Placed in left arm NONE FAMILY HISTORY Adopted: Yes Problem Relation Age of Onset No Known Problems Mother No Known Problems Father Social History Tobacco Use Smoking status: Never Smokeless tobacco: Never Vaping Use Vaping status: Never Used Substance Use Topics Alcohol use: Not Currently Drug use: Never Current Outpatient Medications Medication Sig fluticasone (FLONASE) 50 mcg/actuation nasal spray Use 2 sprays in each nostril once daily. meloxicam (MOBIC) 15 mg tablet Take 1 tablet by mouth once daily. etonogestrel (NEXPLANON) subdermal implant 68 mg 1 Each by SUBDERMAL route as directed. No current facility-administered medications for this visit. Allergies As of Date: 03/13/2025 Allergen Noted Reaction FD AND C RED NO.40 01/27/2016 GI Upset Fully Assessed 02/28/2025 REVIEW OF SYSTEMS Abdomen: No bloating, early satiety, indigestion, or increased flatulence. No abdominal pain, nausea, vomiting, diarrhea, or constipation. Bladder: No dysuria, gross hematuria, urinary frequency, urinary urgency, or incontinence. Breast: No breast lumps, nipple d/c, overlying skin changes, redness or skin retraction. Expanded ROS: N/A Allergies and current medication updated:Yes SENSITIVE EXAM: The sensitive examination was discussed with the Patient or Patient's Authorized Cashier. As applicable, any other physician, advance practice provider, medical student, or other health professional student that will be observing or involved in the sensitive examination for educational or training purposes was discussed with the Patient or Authorized Cashier. The Patient or Authorized Cashier has agreed to proceed with the sensitive examination. (Sensitive examination includes inspection and/or palpation of the breasts, pelvis, prostate and anorectal regions). EXAM: LMP 02/28/2025 GENERAL: pleasant, female in no apparent distress ABDOMEN: soft, non-tender, and no masses PELVIC: external genitalia normal, normal Bartholin's glands, urethra, [place]'s glands, no vulvar lesions, no cervical lesions, good vaginal support, physiologic discharge present, normal appearing perineal body and perianal region, Retained Tampon BIMANUAL: uterus normal size, shape and consistency, no adnexal masses, and non-tender ASSESSMENT AND PLAN: Assessment & Plan Vaginal odor Orders: ROXANN/TRICHOMONAS NAAT BACTERIAL VAGINOSIS NAAT GONORRHEA/CHLAMYDIA NAAT Screen for STD (sexually transmitted disease) Orders: GONORRHEA/CHLAMYDIA NAAT TRICHOMONAS VAGINALIS NAAT Retained tampon, subsequent encounter Tampon removed Unprotected intercourse STI screening submitted. ftft >30m Dayron Cao MD documented in this encounter [facility] 02-28-2025 Instructions Seble Bolanos APRN.SHELL TRIM TOOL SETTER - 02/28/2025 11:08 AM EDT Patient presents with: Nasal Congestion: Cough, dry, fever, sinus pressure and pain, headache on and off, AM sore throat goes away, chest tightness in upper chest x 4 days I recommend you follow up with your Primary Care Provider (Physician, Nurse Practitioner, or Physician Poly Operator). YOU SHOULD SEEK MEDICAL ATTENTION IMMEDIATELY AT THE NEAREST EMERGENCY DEPARTMENT IF ANY OF THE FOLLOWING OCCURS Call 911 if you have chest pain, heaviness or discomfort Fever (temperature higher than 100.4 F / 38 C) and it doesn't go away or gets worse after 2-3 days of antibiotics Unusual or increasing pain Lightheadedness Feeling sicker at any time or not getting better as expected Can't catch your breath or have shortness of breath Were seen for eye problems and have eye pain, changes/blurring of vision, or the light hurts your eyes and/or you have a fever Were seen for wound/skin infection issues and your wound/infection has increasing redness/swelling/pain, red streaking towards your heart, or green/yellow drainage Were seen for a headache and have any worsening of headache/dizziness or you develop a stiff neck or any other concerns about your headache Were seen for stomach/abdominal complaints and your diarrhea/vomiting/pain worsens and/or you don't urinate in an 8 hour period of time Develop swelling of your lips/face/tongue/throat or think you are having an allergic reaction to any medications Please read all pharmacy handouts regarding possible medication side effects and/or adverse reactions. Call your Primary Care Provider with any questions or concerns. Follow up with your Primary Care Provider if you require any follow up care. Urgent/Express Care and Walk In Clinics do not provide follow up care. documented in this encounter [facility] 02-28-2025 Note HNO ID: [id number] Author: SEBLE BOLANOS APRN.CNP Service: ? Author Type: Nurse Practitioner Type: Progress Notes Filed: 02/28/2025 11:16 Note Text: [facility] Subjective Marisol Ponce is a 19 year old female. Patient presents with: Nasal Congestion: Cough, dry, fever, sinus pressure and pain, headache on and off, AM sore throat goes away, chest tightness in upper chest x 4 days Nasal Congestion Associated symptoms include chills, congestion and sinus pressure. Pertinent negatives include no coughing or shortness of breath. Patient is a 19-year-old female that presents with low-grade fever sinus congestion, dry cough and sore throat that started about 4 days ago. She denies any chest pain or shortness of breath no history of asthma or chronic upper respiratory symptoms. She is taking DayQuil and NyQuil with some relief. She states she missed the last couple of 2 days of work. As she has been increased fatigue and sleeping more. She states her daughter was recently sick but got over pretty quickly. Review of Systems Constitutional: Positive for chills, fatigue and fever. HENT: Positive for congestion, sinus pressure and sinus pain. Eyes: Negative for discharge and itching. Respiratory: Negative for cough, chest tightness, shortness of breath and wheezing. Cardiovascular: Negative for chest pain and leg swelling. Gastrointestinal: Negative for abdominal pain, diarrhea, nausea and vomiting. Skin: Negative for rash. Objective BP 116/80 Pulse 110 Temp 37.9 ?C (100.2 ?F) Resp 22 Wt 74 kg (163 lb 2.3 oz) LMP 02/28/2025 (Exact Date) SpO2 96% No BMI 28.76 kg/m? Physical Exam Vitals and nursing note reviewed. Constitutional: Appearance: Normal appearance. HENT: Head: Normocephalic and atraumatic. Cardiovascular: Rate and Rhythm: Normal rate and regular rhythm. Pulses: Normal pulses. Heart sounds: Normal heart sounds. Pulmonary: Effort: Pulmonary effort is normal. Breath sounds: Normal breath sounds. Neurological: Mental Status: She is alert. {ASSESSMENT/PLAN: 1. Viral URI with cough - ICD9: 465.9, ICD10: J06.9 - Discussed viral etiology and rationale for treatment. - Symptomatic treatment with prn analgesia - Supportive care with fluids and rest - The patient may also use OTC decongestants prn, warm salt water gargles, throat lozenges and/or OTC throat spray as needed, and nasal saline gtts and suction prn. - BENZONATATE 100 MG CAPSULE - FLUTICASONE PROPIONATE 50 MCG/ACTUATION NASAL SPRAY,SUSPENSION Seble Bolanos APRN.SHELL TRIM TOOL SETTER History and Record Review External record(s) reviewed: prior outpatient record. Findings from review of outpatient records: medical history reviewed Differential Diagnoses - Viral upper respiratory - Pneumonia - acute dehydration - Streptococcal pharyngitis patient is mass in the Additional Tests or Interventions The following testing was considered but ultimately not selected after discussion with patient/family: chest xray not clinically The following medication(s) were considered but not ordered: non bacterial presentation Disposition The patient was discharged. OTC Medications were advised: Flonase, decongestants, tylenol and ibuprofen Patient is well-appearing nontoxic in no acute respiratory distress. She presents with a viral upper respiratory infection. Patient placed on Flonase Tessalon and continue decongestants as needed [id number] no concern for pneumonia, sinusitis, streptococcal pharyngitis or bacterial process today. Patient given work note for the last 2 days. Discussed continue symptom management which treat with any worsening symptoms such as fevers not relieved by Tylenol ibuprofen, chest pain congestion, or the inability tolerating fluids. Patient verbalized understanding and agreement with this plan patient discharged home. [facility] 02-28-2025 History of Present illness Narrative Formatting of this note might be differe nt from the original. [facility] Subjective Marisol Ponce is a 19 year old female. Patient presents with: Nasal Congestion: Cough, dry, fever, sinus pressure and pain, headache on and off, AM sore throat goes away, chest tightness in upper chest x 4 days Nasal Congestion Associated symptoms include chills, congestion and sinus pressure. Pertinent negatives include no coughing or shortness of breath. Patient is a 19-year-old female that presents with low-grade fever sinus congestion, dry cough and sore throat that started about 4 days ago. She denies any chest pain or shortness of breath no history of asthma or chronic upper respiratory symptoms. She is taking DayQuil and NyQuil with some relief. She states she missed the last couple of 2 days of work. As she has been increased fatigue and sleeping more. She states her daughter was recently sick but got over pretty quickly. Review of Systems Constitutional: Positive for chills, fatigue and fever. HENT: Positive for congestion, sinus pressure and sinus pain. Eyes: Negative for discharge and itching. Respiratory: Negative for cough, chest tightness, shortness of breath and wheezing. Cardiovascular: Negative for chest pain and leg swelling. Gastrointestinal: Negative for abdominal pain, diarrhea, nausea and vomiting. Skin: Negative for rash. Objective BP 116/80 Pulse 110 Temp 37.9 C (100.2 F) Resp 22 Wt 74 kg (163 lb 2.3 oz) LMP 02/28/2025 (Exact Date) SpO2 96% No BMI 28.76 kg/m Physical Exam Vitals and nursing note reviewed. Constitutional: Appearance: Normal appearance. HENT: Head: Normocephalic and atraumatic. Cardiovascular: Rate and Rhythm: Normal rate and regular rhythm. Pulses: Normal pulses. Heart sounds: Normal heart sounds. Pulmonary: Effort: Pulmonary effort is normal. Breath sounds: Normal breath sounds. Neurological: Mental Status: She is alert. {ASSESSMENT/PLAN: 1. Viral URI with cough - ICD9: 465.9, ICD10: J06.9 - Discussed viral etiology and rationale for treatment. - Symptomatic treatment with prn analgesia - Supportive care with fluids and rest - The patient may also use OTC decongestants prn, warm salt water gargles, throat lozenges and/or OTC throat spray as needed, and nasal saline gtts and suction prn. - BENZONATATE 100 MG CAPSULE - FLUTICASONE PROPIONATE 50 MCG/ACTUATION NASAL SPRAY,SUSPENSION Seble Bolanos APRN.SHELL TRIM TOOL SETTER History and Record Review External record(s) reviewed: prior outpatient record. Findings from review of outpatient records: medical history reviewed Differential Diagnoses - Viral upper respiratory - Pneumonia - acute dehydration - Streptococcal pharyngitis patient is mass in the Additional Tests or Interventions The following testing was considered but ultimately not selected after discussion with patient/family: chest xray not clinically The following medication(s) were considered but not ordered: non bacterial presentation Disposition The patient was discharged. OTC Medications were advised: Flonase, decongestants, tylenol and ibuprofen Patient is well-appearing nontoxic in no acute respiratory distress. She presents with a viral upper respiratory infection. Patient placed on Flonase Tessalon and continue decongestants as needed [id number] no concern for pneumonia, sinusitis, streptococcal pharyngitis or bacterial process today. Patient given work note for the last 2 days. Discussed continue symptom management which treat with any worsening symptoms such as fevers not relieved by Tylenol ibuprofen, chest pain congestion, or the inability tolerating fluids. Patient verbalized understanding and agreement with this plan patient discharged home. documented in this encounter [facility] 02-13-2025 Note Addended by: RUTH RAMIREZ on: 025 04:36 PM Modules accepted: Orders [facility] 02-13-2025 Miscellaneous Notes Addended by: RUTH RAMIREZ on: 025 04:36 PM Modules accepted: Orders Addended by: UNRULY DOZIER on: 02/13/2025 11:43 AM Modules accepted: Orders documented in this encounter [facility] 02-13-2025 Note Addended by: UNRULY DOZIER on: 11:43 AM Modules accepted: Orders [facility] 02-13-2025 Note HNO ID: [id number] Author: RUTH RAMIREZ APRN.CNM Service: ? Author Type: Accounts Officer Type: Progress Notes Filed: 02/13/2025 11:33 Note Text: Patient 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 Marisol is a 19 year old who presents for an annual gynecologic exam without complaints. Reports that irregular bleeding after Nexplanon has resolved. Presents: with partner Still get period: Yes, LMP 01/09/2025 cycles 28-30 with 7 days flow. 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 History Comments: Sexual Activity: Yes; Male Contraception: Implant Menstrual Tracking History Flowsheet Row Office Visit from 02/13/2025 in OB/Gynecology Period Cycle (Days) 6 Period Duration (Days) 5 Menstrual Flow Moderate PAST MEDICAL HISTORY Diagnosis Date ADHD (attention deficit hyperactivity disorder), combined type 07/08/2015 Generalized anxiety disorder 06/01/2023 PAST SURGICAL HISTORY Procedure Laterality Date SECTION HX 12/2023 NEXPLANON INSERTION 02/22/2024 Placed in left arm NONE FAMILY HISTORY Adopted: Yes Problem Relation Age of Onset No Known Problems Mother No Known Problems Father SOCIAL HISTORY Social History Tobacco Use Smoking status: Never Smokeless tobacco: Never Vaping Use Vaping status: Never Used Substance Use Topics Alcohol use: Not Currently Drug use: Never REVIEW OF SYSTEMS Abdomen: No bloating, early satiety, indigestion, or increased flatulence. No abdominal pain, nausea, vomiting, diarrhea, or constipation. Bladder: No dysuria, gross hematuria, urinary frequency, urinary urgency, or incontinence. Breast: No breast lumps, nipple d/c, overlying skin changes, redness or skin retraction. Allergies and current medication updated:Yes SENSITIVE EXAM: The sensitive examination was discussed with the Patient or Patient's Authorized Cashier. As applicable, any other physician, advance practice provider, medical student, or other health professional student that will be observing or involved in the sensitive examination for educational or training purposes was discussed with the Patient or Authorized Cashier. The Patient or Authorized Cashier has agreed to proceed with the sensitive examination. (Sensitive examination includes inspection and/or palpation of the breasts, pelvis, prostate and anorectal regions). EXAM: BP 124/72 Wt 167 lb 3.2 oz (75.8kg) LMP 01/15/2025 GENERAL: pleasant, in no apparent distress HEENT: Normocephalic, atraumatic, mucus membranes moist, and no lesions NECK: Supple, full range of motion, and no adenopathy DERMATOLOGY: Normal and without lesions BREAST: soft, non-tender, symmetric, no dominant mass, normal nipple-areolar complex, no lymphadenopathy, no nipple discharge, and fibrocystic changes CHEST: Normal inspiratory effort ABDOMEN: soft, non-tender, and no masses PELVIC: external genitalia normal, normal Bartholin's glands, urethra, [place]'s glands, no vulvar lesions, no cervical lesions, good vaginal support, physiologic discharge present, normal appearing perineal body and perianal region BIMANUAL: uterus normal size, shape and consistency, no adnexal masses, non-tender, and no cervical motion tenderness NEURO: alert and oriented x3,exam grossly non-focal EXTREMITIES: normal ASSESSMENT/PLAN: 1) Health maintenance: Pap starting at the age of 21. Safe sex practices reviewed. 2) Contraception: Nexplanon. Contraceptive options reviewed and information provided. 3) STD screening: Accepted STD check for Gonorrhea and Chlamydia. 4) Patient desires removal of Nexplanon next year to try for . Follow up one year or sooner as needed. Ruth Ramirez APRN.KASIE [facility] 02-13-2025 History of Present illness Narrative Formatting of this note is different fro m the original. Patient 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 Marisol is a 19 year old who presents for an annual gynecologic exam without complaints. Reports that irregular bleeding after Nexplanon has resolved. Presents: with partner Still get period: Yes, LMP 01/09/2025 cycles 28-30 with 7 days flow. 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 History Comments: Sexual Activity: Yes; Male Contraception: Implant Menstrual Tracking History Flowsheet Row Office Visit from 02/13/2025 in OB/Gynecology Period Cycle (Days) 6 Period Duration (Days) 5 Menstrual Flow Moderate PAST MEDICAL HISTORY Diagnosis Date ADHD (attention deficit hyperactivity disorder), combined type 07/08/2015 Generalized anxiety disorder 06/01/2023 PAST SURGICAL HISTORY Procedure Laterality Date SECTION HX 12/2023 NEXPLANON INSERTION 02/22/2024 Placed in left arm NONE FAMILY HISTORY Adopted: Yes Problem Relation Age of Onset No Known Problems Mother No Known Problems Father SOCIAL HISTORY Social History Tobacco Use Smoking status: Never Smokeless tobacco: Never Vaping Use Vaping status: Never Used Substance Use Topics Alcohol use: Not Currently Drug use: Never REVIEW OF SYSTEMS Abdomen: No bloating, early satiety, indigestion, or increased flatulence. No abdominal pain, nausea, vomiting, diarrhea, or constipation. Bladder: No dysuria, gross hematuria, urinary frequency, urinary urgency, or incontinence. Breast: No breast lumps, nipple d/c, overlying skin changes, redness or skin retraction. Allergies and current medication updated:Yes SENSITIVE EXAM: The sensitive examination was discussed with the Patient or Patient's Authorized Cashier. As applicable, any other physician, advance practice provider, medical student, or other health professional student that will be observing or involved in the sensitive examination for educational or training purposes was discussed with the Patient or Authorized Cashier. The Patient or Authorized Cashier has agreed to proceed with the sensitive examination. (Sensitive examination includes inspection and/or palpation of the breasts, pelvis, prostate and anorectal regions). EXAM: BP 124/72 Wt 167 lb 3.2 oz (75.8kg) LMP 01/15/2025 GENERAL: pleasant, in no apparent distress HEENT: Normocephalic, atraumatic, mucus membranes moist, and no lesions NECK: Supple, full range of motion, and no adenopathy DERMATOLOGY: Normal and without lesions BREAST: soft, non-tender, symmetric, no dominant mass, normal nipple-areolar complex, no lymphadenopathy, no nipple discharge, and fibrocystic changes CHEST: Normal inspiratory effort ABDOMEN: soft, non-tender, and no masses PELVIC: external genitalia normal, normal Bartholin's glands, urethra, [place]'s glands, no vulvar lesions, no cervical lesions, good vaginal support, physiologic discharge present, normal appearing perineal body and perianal region BIMANUAL: uterus normal size, shape and consistency, no adnexal masses, non-tender, and no cervical motion tenderness NEURO: alert and oriented x3,exam grossly non-focal EXTREMITIES: normal ASSESSMENT/PLAN: 1) Health maintenance: Pap starting at the age of 21. Safe sex practices reviewed. 2) Contraception: Nexplanon. Contraceptive options reviewed and information provided. 3) STD screening: Accepted STD check for Gonorrhea and Chlamydia. 4) Patient desires removal of Nexplanon next year to try for . Follow up one year or sooner as needed. Ruth Ramirez APRN.CNM documented in this encounter [facility] 01-14-2025 Note HNO ID: [id number] Author: PAKO NEWTON MD Service: ? Author Type: Physician Type: Progress Notes Filed: 02/04/2025 23:16 Note Text: Pako Newton MD Department of Orthopaedics Orthopaedics [address] [facility] [address] Dept: [phone] Dept January 14, 2025 CHIEF COMPLAINT: New and Knee Pain of the Right Knee HPI Patient here for evaluation right knee pain. States her pain started about a month ago. Her pain has gotten better since she made the appointment. Patient states her pain is around the knee cap. No specific injury. She does continue to have some swelling in knee. 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 Patient states her knee cap will pop at times. Tried taking Ibuprofen and Tylenol for the pain and did not help with the pain. X-rays done today. ASSESSMENT: M76.51 Patellar tendonitis of right knee (primary encounter diagnosis) PLAN: she would like to try some NSAIDs. SOme PT if needed. FOLLOW UP INSTRUCTIONS: As needed OBJECTIVE: Ms. Marisol Ponce is a pleasant 19 year old in no apparent distress. Gen:LMP 08/23/2024 nl development, non obese, no deformities ENT: Normocephalic, normal hearing, moist mucosa CV: Pulses:DP/PT= 2+ and symmetric, capillary refill < 2 secs, no peripheral edema/varicosities Skin: no rash, bruising or lesions. Good turgor. Psych: cooperative and appropriate, alert and oriented x 3, good mood and affect. Musculoskeletal: Good ROM. TTP at the infra-patellar tendon. No effusion. IMAGING: IMPRESSION: Normal Dehydrogenation Operator[facility] Transcribe Date/Time: Jan 16 2025 8:51A Dictated by : ANABELL BUCK MD This examination was interpreted and the report reviewed and electronically signed by: ANABELL BUCK MD on Jan 16 2025 8:51AM EST Results-Findings * * *Final Report* * * DATE OF EXAM: Jan 14 2025 2:52PM [id number] [id number] - XR KNEE 4V AP/PA BOTH+LAT/ASHU RT / PROCEDURE REASON: Right knee pain, unspecified chronicity * * * * Physician Interpretation * * * * PROCEDURE: Right knee INDICATION: Right knee pain, unspecified chronicity .PT STATES STANDS ALL DAY AT WORK RIGHT KNEE FEELS TIGHT NO INJURY TECHNIQUE: XR KNEE 4V AP/PA BOTH+LAT/ASHU RT COMPARISON: None FINDINGS: No fracture, dislocation or osseous lesion. Joint spaces are maintained. No joint effusion. Supporting Subjective Information Below: Past Medical History: PAST MEDICAL HISTORY Diagnosis Date ADHD (attention deficit hyperactivity disorder), combined type 07/08/2015 Generalized anxiety disorder 06/01/2023 Past Surgical History: PAST SURGICAL HISTORY Procedure Laterality Date SECTION HX 12/2023 NEXPLANON INSERTION 02/22/2024 Placed in left arm NONE Family History: FAMILY HISTORY Adopted: Yes Problem Relation Age of Onset No Known Problems Mother No Known Problems Father Social History: Social History Tobacco Use Smoking status: Never Smokeless tobacco: Never Vaping Use Vaping status: Never Used Substance Use Topics Alcohol use: Not Currently Drug use: Never Medications: Current Outpatient Medications Medication Sig etonogestrel (NEXPLANON) subdermal implant 68 mg 1 Each by SUBDERMAL route as directed. No current facility-administered medications for this visit. Allergies: Fd And C Red No.40 ROS: General (negative for fatigue, malaise, weight loss/gain) HEENT (negative for headache, earache, recent vision changes, sinus pain, sore throat) Respiratory (no recent shortness of breath, hemoptysis) CV (negative for chest tightness, palpitations) Musculoskeletal (see HPI) Psych (no depression, anxiety) Pako Newton MD [facility] 01-14-2025 History of Present illness Narrative Formatting of this note is different fro m the original. Pako Newton MD Department of Orthopaedics Orthopaedics [address] [facility] [address] Dept: [phone] Dept January 14, 2025 CHIEF COMPLAINT: New and Knee Pain of the Right Knee HPI Patient here for evaluation right knee pain. States her pain started about a month ago. Her pain has gotten better since she made the appointment. Patient states her pain is around the knee cap. No specific injury. She does continue to have some swelling in knee. 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 Patient states her knee cap will pop at times. Tried taking Ibuprofen and Tylenol for the pain and did not help with the pain. X-rays done today. ASSESSMENT: M76.51 Patellar tendonitis of right knee (primary encounter diagnosis) PLAN: she would like to try some NSAIDs. SOme PT if needed. FOLLOW UP INSTRUCTIONS: As needed OBJECTIVE: Ms. Marisol Ponce is a pleasant 19 year old in no apparent distress. Gen:LMP 08/23/2024 nl development, non obese, no deformities ENT: Normocephalic, normal hearing, moist mucosa CV: Pulses:DP/PT= 2+ and symmetric, capillary refill < 2 secs, no peripheral edema/varicosities Skin: no rash, bruising or lesions. Good turgor. Psych: cooperative and appropriate, alert and oriented x 3, good mood and affect. Musculoskeletal: Good ROM. TTP at the infra-patellar tendon. No effusion. IMAGING: IMPRESSION: Normal Dehydrogenation Operator: DALIA Transcribe Date/Time: Jan 16 2025 8:51A Dictated by : ANABELL BUCK MD This examination was interpreted and the report reviewed and electronically signed by: ANABELL BUCK MD on Jan 16 2025 8:51AM EST Results-Findings * * *Final Report* * * DATE OF EXAM: Jan 14 2025 2:52PM WRX [id number] - XR KNEE 4V AP/PA BOTH+LAT/ASHU RT / PROCEDURE REASON: Right knee pain, unspecified chronicity * * * * Physician Interpretation * * * * PROCEDURE: Right knee INDICATION: Right knee pain, unspecified chronicity .PT STATES STANDS ALL DAY AT WORK RIGHT KNEE FEELS TIGHT NO INJURY TECHNIQUE: XR KNEE 4V AP/PA BOTH+LAT/ASHU RT COMPARISON: None FINDINGS: No fracture, dislocation or osseous lesion. Joint spaces are maintained. No joint effusion. Supporting Subjective Information Below: Past Medical History: PAST MEDICAL HISTORY Diagnosis Date ADHD (attention deficit hyperactivity disorder), combined type 07/08/2015 Generalized anxiety disorder 06/01/2023 Past Surgical History: PAST SURGICAL HISTORY Procedure Laterality Date SECTION HX 12/2023 NEXPLANON INSERTION 02/22/2024 Placed in left arm NONE Family History: FAMILY HISTORY Adopted: Yes Problem Relation Age of Onset No Known Problems Mother No Known Problems Father Social History: Social History Tobacco Use Smoking status: Never Smokeless tobacco: Never Vaping Use Vaping status: Never Used Substance Use Topics Alcohol use: Not Currently Drug use: Never Medications: Current Outpatient Medications Medication Sig etonogestrel (NEXPLANON) subdermal implant 68 mg 1 Each by SUBDERMAL route as directed. No current facility-administered medications for this visit. Allergies: Fd And C Red No.40 ROS: General (negative for fatigue, malaise, weight loss/gain) HEENT (negative for headache, earache, recent vision changes, sinus pain, sore throat) Respiratory (no recent shortness of breath, hemoptysis) CV (negative for chest tightness, palpitations) Musculoskeletal (see HPI) Psych (no depression, anxiety) Pako Newton MD documented in this encounter [facility] 01-14-2025 History of Present illness Narrative Formatting of this note might be differe nt from the original. Radiology Service Progress Note PATIENT NAME: Marisol Ponce DATE OF SERVICE: January 14, 2025 TIME: 3:47 PM PATIENT IDENTITY VERIFICATION COMPLETED USING TWO (2) IDENTIFIERS: Name and Date of confirmed by patient verbally. FALL SCREENING: Has the patient had 2 falls in the last year or 1 fall with injury or currently using an Ambulatory Assistive Device (Walker, Cane, Wheelchair, Crutches, etc.)? No PATIENT GENDER DATA: Assigned female at . status: : No status: NO. PATIENT RELEVANT IMPLANT DATA REVIEWED: Not Applicable PATIENT PRESENTS WITH AN IMPLANTABLE OR ATTACHED SHOE REPAIRER: No RADIOLOGY DEPARTMENT: General X-ray: Exam(s) Completed: Lower Extremity X-Ray(s): Knee, AP / Lat / Tunne / Merchant Right and Wt. Bearing PERIPHERAL IV DATA: Not applicable SIGNED BY: RT Yann(Derrick) January 14, 2025 3:47 PM documented in this encounter [facility] 01-14-2025 Note HNO ID: [id number] Author: ANITA HER RT(R) Service: ? Author Type: Technologist Type: Progress Notes Filed: 01/14/2025 15:47 Note Text: Radiology Service Progress Note PATIENT NAME: Marisol Ponce DATE OF SERVICE: January 14, 2025 TIME: 3:47 PM PATIENT IDENTITY VERIFICATION COMPLETED USING TWO (2) IDENTIFIERS: Name and Date of confirmed by patient verbally. FALL SCREENING: Has the patient had 2 falls in the last year or 1 fall with injury or currently using an Ambulatory Assistive Device (Walker, Cane, Wheelchair, Crutches, etc.)? No PATIENT GENDER DATA: Assigned female at . status: : No status: NO. PATIENT RELEVANT IMPLANT DATA REVIEWED: Not Applicable PATIENT PRESENTS WITH AN IMPLANTABLE OR ATTACHED SHOE REPAIRER: No RADIOLOGY DEPARTMENT: General X-ray: Exam(s) Completed: Lower Extremity X-Ray(s): Knee, AP / Lat / Tunne / Merchant Right and Wt. Bearing PERIPHERAL IV DATA: Not applicable SIGNED BY: RT Yann(Derrick) January 14, 2025 3:47 PM [facility] 08-28-2024 Note HNO ID: [id number] Author: FLAKO HUNG APRN.SHELL TRIM TOOL SETTER Service: ? Author Type: Nurse Practitioner Type: Progress Notes Filed: 08/28/2024 10:54 Note Text: Subjective Female with complaints of circular rash on left upper thigh. Patient says she has had it about 2 weeks. Patient says she does have cats. Patient denies any other symptoms associated with it such as fever chills nausea vomiting muscle aches sore throat. The history is provided by the patient. No english language learner teacher was used. Rash Review of Systems Constitutional: Negative. Skin: Positive for rash. Objective Physical Exam Constitutional: Appearance: Normal appearance. Pulmonary: Effort: Pulmonary effort is normal. Skin: Comments: Patient does have erythematous dry scaly circular rash with normal skin in the middle. Consistent with a ringworm. Neurological: Mental Status: She is alert. PAST MEDICAL HISTORY Diagnosis Date ADHD (attention deficit hyperactivity disorder), combined type 07/08/2015 Generalized anxiety disorder 06/01/2023 PAST SURGICAL HISTORY Procedure Laterality Date SECTION HX 12/2023 NEXPLANON INSERTION 02/22/2024 Placed in left arm NONE ALLERGIES Fd And C Red No.40 MEDICATIONS etonogestrel (NEXPLANON) subdermal implant 68 mg 1 Each by SUBDERMAL route as directed. clotrimazole (LOTRIMIN) 1 % cream Apply 1 application to affected area two times a day for 14 days. Can be used 2-4 weeks...... use for 3 days after area is completley healed up. FAMILY HISTORY Adopted: Yes Problem Relation Age of Onset No Known Problems Mother No Known Problems Father Social History Tobacco Use Smoking status: Never Smokeless tobacco: Never Vaping Use Vaping status: Never Used Substance Use Topics Alcohol use: Not Currently Drug use: Never ASSESSMENT/PLAN: 1. Ringworm - ICD9: 110.9, ICD10: B35.9 - CLOTRIMAZOLE 1 % TOPICAL CREAM Was educated about proper use of medication and supportive therapies. Patient was educated to check all animals at home. Patient was okay with this care plan and will follow-up if signs and symptoms seem to be getting worse not better. Flako Hung APRN.SHELL TRIM TOOL SETTER [facility] 08-28-2024 History of Present illness Narrative Formatting of this note is different fro m the original. Images from the original note were not included. Subjective Female with complaints of circular rash on left upper thigh. Patient says she has had it about 2 weeks. Patient says she does have cats. Patient denies any other symptoms associated with it such as fever chills nausea vomiting muscle aches sore throat. The history is provided by the patient. No english language learner teacher was used. Rash Review of Systems Constitutional: Negative. Skin: Positive for rash. Objective Physical Exam Constitutional: Appearance: Normal appearance. Pulmonary: Effort: Pulmonary effort is normal. Skin: Comments: Patient does have erythematous dry scaly circular rash with normal skin in the middle. Consistent with a ringworm. Neurological: Mental Status: She is alert. PAST MEDICAL HISTORY Diagnosis Date ADHD (attention deficit hyperactivity disorder), combined type 07/08/2015 Generalized anxiety disorder 06/01/2023 PAST SURGICAL HISTORY Procedure Laterality Date SECTION HX 12/2023 NEXPLANON INSERTION 02/22/2024 Placed in left arm NONE ALLERGIES Fd And C Red No.40 MEDICATIONS etonogestrel (NEXPLANON) subdermal implant 68 mg 1 Each by SUBDERMAL route as directed. clotrimazole (LOTRIMIN) 1 % cream Apply 1 application to affected area two times a day for 14 days. Can be used 2-4 weeks...... use for 3 days after area is completley healed up. FAMILY HISTORY Adopted: Yes Problem Relation Age of Onset No Known Problems Mother No Known Problems Father Social History Tobacco Use Smoking status: Never Smokeless tobacco: Never Vaping Use Vaping status: Never Used Substance Use Topics Alcohol use: Not Currently Drug use: Never ASSESSMENT/PLAN: 1. Ringworm - ICD9: 110.9, ICD10: B35.9 - CLOTRIMAZOLE 1 % TOPICAL CREAM Was educated about proper use of medication and supportive therapies. Patient was educated to check all animals at home. Patient was okay with this care plan and will follow-up if signs and symptoms seem to be getting worse not better. Flako Hung APRN.GEOR[place]ES documented in this encounter [facility] 08-09-2024 Note HNO ID: [id number] Author: CAMERON BLANTON, DO Service: ? Author Type: Physician Type: Progress Notes Filed: 09/30/2024 11:28 Note Text: ASSESSMENT/PLAN: 1. Routine health maintenance - ICD9: V70.0, ICD10: Z00.00 (primary diagnosis) - Counseled on healthy diet and regular exercise - Recommend vitamin containing 0.4 mg of folic acid - Follow up for annual exam in one year - COMPLETE BLOOD COUNT - COMPREHENSIVE METABOLIC PANEL - LIPID PANEL, NONFASTING - HEMOGLOBIN A1C 2. Hair loss - ICD9: 704.00, ICD10: L65.9 -She has had ongoing hair loss since having her baby in April. 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 Discussed that this typically does resolve over time. Will order thyroid hormone levels to check for hypothyroidism. Advised that if symptoms are persistent and not improving after 6 months then can consider dermatology referral. - THYROID STIMULATING HORMONE - T4 FREE/FREE THYROXINE CC: Patient presents with: Hair Loss: Pt states she noticed the last couple of months she's been losing hair and states she had a baby in December. HPI: Marisol Ponce is a 19 year old female who presents for a comprehensive problem evaluation. Current issues/concerns include: She says had a baby in December and has been losing her hair since April. She says it comes out in clumps. She does have a lot of fatigue as well. Last 4 Encounter Wt Readings: Date: Wt: 08/09/2024 70.1 kg (154 lb 8.7 oz) (85%, Z= 1.03)* 07/06/2024 66 kg (145 lb 8.1 oz) (78%, Z= 0.76)* 07/01/2024 69.2 kg (152 lb 8.9 oz) (84%, Z= 0.98)* 06/10/2024 70.2 kg (154 lb 12.2 oz) (85%, Z= 1.05)* HEALTH MAINTENANCE REVIEW: HPV Vaccine(2 - 2-dose series) due on 12/15/2019 Meningococcal B Vaccine: Consider Based On Risk(2 of 2 - Risk Bexsero 2-dose series) due on 08/16/2022 Depression Screening Never done GC (Gonorrhea) Screening (18-24) due on 06/01/2024 Chlamydia Screening (18-24) due on 06/01/2024 Influenza Vaccine(1) due on 07/01/2024 Covid-19 Vaccine(2023- season) Never done Gynecologic History Patient's last menstrual period was 08/01/2024 (exact date). Period Regularity: regular q 28-30 days On control: yes, nexplanon Sexually Active - Yes Abnormal Pap smears in the past - NA Abnormal breast exam or mammogram in the past - Not Applicable PATIENT HISTORY: Problem list, Past surgical history and Social Histories reviewed and updated today in the History tab of [facility]. OBJECTIVE: BP 121/82 Pulse 70 Temp (Src) 97.1 (Temporal) Ht 5' 3.15 (1.60m) Wt 154 lb 8.7 oz (70.1kg) SpO2 98% LMP 08/01/2024 BMI 27.25 kg/(m2). Physical Exam Constitutional: General: She is not in acute distress. Appearance: Normal appearance. She is normal weight. She is not ill-appearing or toxic-appearing. HENT: Head: Normocephalic and atraumatic. Right Ear: Tympanic membrane, ear canal and external ear normal. Left Ear: Tympanic membrane, ear canal and external ear normal. Nose: Nose normal. Mouth/Throat: Mouth: Mucous membranes are moist. Pharynx: No oropharyngeal exudate. Eyes: Extraocular Movements: Extraocular movements intact. Conjunctiva/sclera: Conjunctivae normal. Pupils: Pupils are equal, round, and reactive to light. Cardiovascular: Rate and Rhythm: Normal rate and regular rhythm. Pulses: Normal pulses. Heart sounds: Normal heart sounds. No murmur heard. No friction rub. No gallop. Pulmonary: Effort: Pulmonary effort is normal. Breath sounds: Normal breath sounds. No wheezing, rhonchi or rales. Abdominal: General: Abdomen is flat. Bowel sounds are normal. Palpations: Abdomen is soft. Tenderness: There is no guarding or rebound. Musculoskeletal: General: Normal range of motion. Cervical back: Normal range of motion and neck supple. Lymphadenopathy: Cervical: No cervical adenopathy. Skin: General: Skin is warm and dry. Neurological: General: No focal deficit present. Mental Status: She is alert and oriented to person, place, and time. Psychiatric: Mood and Affect: Mood normal. Behavior: Behavior normal. Thought Content: Thought content normal. Judgment: Judgment normal. Dr. Cameron Blanton, [facility] 10-10-2024 History of Present illness Narrative Formatting of this note might be differe nt from the original. ASSESSMENT/PLAN: 1. Routine health maintenance - ICD9: V70.0, ICD10: Z00.00 (primary diagnosis) - Counseled on healthy diet and regular exercise - Recommend vitamin containing 0.4 mg of folic acid - Follow up for annual exam in one year - COMPLETE BLOOD COUNT - COMPREHENSIVE METABOLIC PANEL - LIPID PANEL, NONFASTING - HEMOGLOBIN A1C 2. Hair loss - ICD9: 704.00, ICD10: L65.9 -She has had ongoing hair loss since having her baby in April. 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 Discussed that this typically does resolve over time. Will order thyroid hormone levels to check for hypothyroidism. Advised that if symptoms are persistent and not improving after 6 months then can consider dermatology referral. - THYROID STIMULATING HORMONE - T4 FREE/FREE THYROXINE CC: Patient presents with: Hair Loss: Pt states she noticed the last couple of months she's been losing hair and states she had a baby in December. HPI: Marisol Ponce is a 19 year old female who presents for a comprehensive problem evaluation. Current issues/concerns include: She says had a baby in December and has been losing her hair since April. She says it comes out in clumps. She does have a lot of fatigue as well. Last 4 Encounter Wt Readings: Date: Wt: 08/09/2024 70.1 kg (154 lb 8.7 oz) (85%, Z= 1.03)* 07/06/2024 66 kg (145 lb 8.1 oz) (78%, Z= 0.76)* 07/01/2024 69.2 kg (152 lb 8.9 oz) (84%, Z= 0.98)* 06/10/2024 70.2 kg (154 lb 12.2 oz) (85%, Z= 1.05)* HEALTH MAINTENANCE REVIEW: HPV Vaccine(2 - 2-dose series) due on 12/15/2019 Meningococcal B Vaccine: Consider Based On Risk(2 of 2 - Risk Bexsero 2-dose series) due on 08/16/2022 Depression Screening Never done GC (Gonorrhea) Screening (18-24) due on 06/01/2024 Chlamydia Screening (18-24) due on 06/01/2024 Influenza Vaccine(1) due on 07/01/2024 Covid-19 Vaccine(2023- season) Never done Gynecologic History Patient's last menstrual period was 08/01/2024 (exact date). Period Regularity: regular q 28-30 days On control: yes, nexplanon Sexually Active - Yes Abnormal Pap smears in the past - NA Abnormal breast exam or mammogram in the past - Not Applicable PATIENT HISTORY: Problem list, Past surgical history and Social Histories reviewed and updated today in the History tab of [facility]. OBJECTIVE: BP 121/82 Pulse 70 Temp (Src) 97.1 (Temporal) Ht 5' 3.15 (1.60m) Wt 154 lb 8.7 oz (70.1kg) SpO2 98% LMP 08/01/2024 BMI 27.25 kg/(m^2). Physical Exam Constitutional: General: She is not in acute distress. Appearance: Normal appearance. She is normal weight. She is not ill-appearing or toxic-appearing. HENT: Head: Normocephalic and atraumatic. Right Ear: Tympanic membrane, ear canal and external ear normal. Left Ear: Tympanic membrane, ear canal and external ear normal. Nose: Nose normal. Mouth/Throat: Mouth: Mucous membranes are moist. Pharynx: No oropharyngeal exudate. Eyes: Extraocular Movements: Extraocular movements intact. Conjunctiva/sclera: Conjunctivae normal. Pupils: Pupils are equal, round, and reactive to light. Cardiovascular: Rate and Rhythm: Normal rate and regular rhythm. Pulses: Normal pulses. Heart sounds: Normal heart sounds. No murmur heard. No friction rub. No gallop. Pulmonary: Effort: Pulmonary effort is normal. Breath sounds: Normal breath sounds. No wheezing, rhonchi or rales. Abdominal: General: Abdomen is flat. Bowel sounds are normal. Palpations: Abdomen is soft. Tenderness: There is no guarding or rebound. Musculoskeletal: General: Normal range of motion. Cervical back: Normal range of motion and neck supple. Lymphadenopathy: Cervical: No cervical adenopathy. Skin: General: Skin is warm and dry. Neurological: General: No focal deficit present. Mental Status: She is alert and oriented to person, place, and time. Psychiatric: Mood and Affect: Mood normal. Behavior: Behavior normal. Thought Content: Thought content normal. Judgment: Judgment normal. Dr. Cameron Blnaton, DO documented in this encounter [facility] 07-06-2024 History of Present illness Narrative Formatting of this note might be differe nt from the original. Radiology Service Progress Note PATIENT NAME: Marisol Ponce DATE OF SERVICE: July 06, 2024 TIME: 3:49 PM PATIENT IDENTITY VERIFICATION COMPLETED USING TWO (2) IDENTIFIERS: Name and Date of confirmed by patient verbally. FALL SCREENING: Has the patient had 2 falls in the last year or 1 fall with injury or currently using an Ambulatory Assistive Device (Walker, Cane, Wheelchair, Crutches, etc.)? No PATIENT GENDER DATA: Female. status: : No status: NO. PATIENT RELEVANT IMPLANT DATA REVIEWED: Yes PATIENT PRESENTS WITH AN IMPLANTABLE OR ATTACHED SHOE REPAIRER: No RADIOLOGY DEPARTMENT: General X-ray: Exam(s) Completed: Chest X-Ray PERIPHERAL IV DATA: Not applicable SIGNED BY: RT Luis(Derrick) July 06, 2024 3:49 PM documented in this encounter [facility] 07-06-2024 Note HNO ID: [id number] Author: BISI CLEMENTE RT(R) Service: Radiology Author Type: Technologist Type: Progress Notes Filed: 07/06/2024 16:00 Note Text: Radiology Service Progress Note PATIENT NAME: Marisol Ponce DATE OF SERVICE: July 06, 2024 TIME: 3:49 PM PATIENT IDENTITY VERIFICATION COMPLETED USING TWO (2) IDENTIFIERS: Name and Date of confirmed by patient verbally. FALL SCREENING: Has the patient had 2 falls in the last year or 1 fall with injury or currently using an Ambulatory Assistive Device (Walker, Cane, Wheelchair, Crutches, etc.)? No PATIENT GENDER DATA: Female. status: : No status: NO. PATIENT RELEVANT IMPLANT DATA REVIEWED: Yes PATIENT PRESENTS WITH AN IMPLANTABLE OR ATTACHED SHOE REPAIRER: No RADIOLOGY DEPARTMENT: General X-ray: Exam(s) Completed: Chest X-Ray PERIPHERAL IV DATA: Not applicable SIGNED BY: RT Luis(Derrick) July 06, 2024 3:49 PM [facility] 07-06-2024 Note HNO ID: [id number] Author: BRAULIO HOU PA Service: ? Author Type: Physician Poly Operator Type: Progress Notes Filed: 07/06/2024 16:15 Note Text: This note was created using Dittitriter. Subjective Marisol Ponce is a 19 year old female. HPI 19-year-old female presents for cough x 2 weeks. Patient states she has had a cough for the past 2 weeks. She was diagnosed with COVID about a month ago. She states that she got better and then started getting nasal congestion and cough again. She was seen here 5 days ago and diagnosed with ear infection and sinus infection. She is being treated with Augmentin. Patient states she has been taking antibiotic as prescribed. Her nasal congestion and ear pain is better, but her cough is worsening. She states that she is having coughing fits to the point where she vomits. She has some shortness of breath with coughing fits. She states she is unable to take a deep breath due to it causing her to cough. She has been taking Mucinex [id number], but has not really been helping. She states she has felt warm, but has not taken her temperature. She denies any history of COPD or asthma. No other complaint. PAST MEDICAL HISTORY 07/08/2015: ADHD (attention deficit hyperactivity disorder), combined type 06/01/2023: Generalized anxiety disorder PAST SURGICAL HISTORY 02/22/2024: NEXPLANON INSERTION Comment: Placed in left arm No date: NONE ALLERGIES Fd And C Red No.40 MEDICATIONS amoxicillin-clavulanate potassium (AUGMENTIN) 875-125 mg per tablet Take 1 tablet by mouth two times a day for 7 days. etonogestrel (NEXPLANON) subdermal implant 68 mg 1 Each by SUBDERMAL route as directed. BABY ASPIRIN ORAL Take 162 mg by mouth once daily. (Patient not taking: Reported on 01/18/2024) PNV no.95/ferrous fum/folic ac ( ORAL) Take by mouth. (Patient not taking: Reported on 06/10/2024) FAMILY HISTORY Adopted: Yes Social History Tobacco Use Smoking status: Never Smokeless tobacco: Never Vaping Use Vaping status: Never Used Substance Use Topics Alcohol use: Never Drug use: Never Review of Systems Constitutional: Negative for chills and fever. HENT: Positive for congestion. Negative for ear pain and sore throat. Respiratory: Positive for cough and shortness of breath. Cardiovascular: Negative for chest pain. Gastrointestinal: Negative for diarrhea and vomiting. Objective BP 115/73 Pulse 94 Temp 36 ?C (96.8 ?F) Resp 20 Wt 66 kg (145 lb 8.1 oz) LMP 07/06/2024 (Exact Date) SpO2 95% No Physical Exam Vitals and nursing note reviewed. Constitutional: General: She is not in acute distress. Appearance: Normal appearance. She is not toxic-appearing. HENT: Right Ear: Tympanic membrane and ear canal normal. Left Ear: Tympanic membrane and ear canal normal. Nose: Nose normal. Mouth/Throat: Mouth: Mucous membranes are moist. Eyes: Conjunctiva/sclera: Conjunctivae normal. Cardiovascular: Rate and Rhythm: Normal rate and regular rhythm. Pulmonary: Effort: Pulmonary effort is normal. Breath sounds: Decreased breath sounds present. No wheezing, rhonchi or rales. Skin: General: Skin is warm and dry. Neurological: Mental Status: She is alert. Assessment and Plan ASSESSMENT/PLAN: 1. Acute cough - ICD9: 786.2, ICD10: R05.1 (primary diagnosis) - XR CHEST 2V FRONTAL/LAT-patchy bilateral opacities in bilateral lungs likely representing pneumonia -Currently on Augmentin. Rx doxycycline. -Rx albuterol inhaler -Rx Tessalon Perles -Follow-up with PCP in 3 to 4 weeks to ensure resolution 2. Pneumonia of both lower lobes due to infectious organism - ICD9: 486, ICD10: J18.9 -See above. Diagnosis and treatment plan were discussed and questions were answered to the patient's satisfaction. Pt acknowledged understanding of concepts and follow up plan. Specific signs and symptoms that would indicate the need for higher level of care were discussed in detail warranting prompt ER evaluation. SUJEY Pappas [facility] 07-06-2024 Note HNO ID: [id number] Author: BRAULIO HOU PA Service: ? Author Type: Physician Poly Operator Type: Progress Notes Filed: 07/06/2024 16:15 Note Text: This note was created using Dittitriter. Subjective Marisol Ponce is a 19 year old female. Review of Systems Objective BP 115/73 Pulse 94 Temp 36 ?C (96.8 ?F) Resp 20 Wt 66 kg (145 lb 8.1 oz) LMP 07/06/2024 (Exact Date) SpO2 95% No Physical Exam Assessment and Plan Problem List Items Addressed This Visit None Visit Diagnoses Acute cough - Primary Relevant Orders XR CHEST 2V FRONTAL/LAT [facility] 07-06-2024 History of Present illness Narrative Formatting of this note is different fro m the original. This note was created using Dittitriter. Subjective Marisol Ponce is a 19 year old female. HPI 19-year-old female presents for cough x 2 weeks. Patient states she has had a cough for the past 2 weeks. She was diagnosed with COVID about a month ago. She states that she got better and then started getting nasal congestion and cough again. She was seen here 5 days ago and diagnosed with ear infection and sinus infection. She is being treated with Augmentin. Patient states she has been taking antibiotic as prescribed. Her nasal congestion and ear pain is better, but her cough is worsening. She states that she is having coughing fits to the point where she vomits. She has some shortness of breath with coughing fits. She states she is unable to take a deep breath due to it causing her to cough. She has been taking Mucinex [id number], but has not really been helping. She states she has felt warm, but has not taken her temperature. She denies any history of COPD or asthma. No other complaint. PAST MEDICAL HISTORY 07/08/2015: ADHD (attention deficit hyperactivity disorder), combined type 06/01/2023: Generalized anxiety disorder PAST SURGICAL HISTORY 02/22/2024: NEXPLANON INSERTION Comment: Placed in left arm No date: NONE ALLERGIES Fd And C Red No.40 MEDICATIONS amoxicillin-clavulanate potassium (AUGMENTIN) 875-125 mg per tablet Take 1 tablet by mouth two times a day for 7 days. etonogestrel (NEXPLANON) subdermal implant 68 mg 1 Each by SUBDERMAL route as directed. BABY ASPIRIN ORAL Take 162 mg by mouth once daily. (Patient not taking: Reported on 01/18/2024) PNV no.95/ferrous fum/folic ac ( ORAL) Take by mouth. (Patient not taking: Reported on 06/10/2024) FAMILY HISTORY Adopted: Yes Social History Tobacco Use Smoking status: Never Smokeless tobacco: Never Vaping Use Vaping status: Never Used Substance Use Topics Alcohol use: Never Drug use: Never Review of Systems Constitutional: Negative for chills and fever. HENT: Positive for congestion. Negative for ear pain and sore throat. Respiratory: Positive for cough and shortness of breath. Cardiovascular: Negative for chest pain. Gastrointestinal: Negative for diarrhea and vomiting. Objective BP 115/73 Pulse 94 Temp 36 C (96.8 F) Resp 20 Wt 66 kg (145 lb 8.1 oz) LMP 07/06/2024 (Exact Date) SpO2 95% No Physical Exam Vitals and nursing note reviewed. Constitutional: General: She is not in acute distress. Appearance: Normal appearance. She is not toxic-appearing. HENT: Right Ear: Tympanic membrane and ear canal normal. Left Ear: Tympanic membrane and ear canal normal. Nose: Nose normal. Mouth/Throat: Mouth: Mucous membranes are moist. Eyes: Conjunctiva/sclera: Conjunctivae normal. Cardiovascular: Rate and Rhythm: Normal rate and regular rhythm. Pulmonary: Effort: Pulmonary effort is normal. Breath sounds: Decreased breath sounds present. No wheezing, rhonchi or rales. Skin: General: Skin is warm and dry. Neurological: Mental Status: She is alert. Assessment and Plan ASSESSMENT/PLAN: 1. Acute cough - ICD9: 786.2, ICD10: R05.1 (primary diagnosis) - XR CHEST 2V FRONTAL/LAT-patchy bilateral opacities in bilateral lungs likely representing pneumonia -Currently on Augmentin. Rx doxycycline. -Rx albuterol inhaler -Rx Tessalon Perles -Follow-up with PCP in 3 to 4 weeks to ensure resolution 2. Pneumonia of both lower lobes due to infectious organism - ICD9: 486, ICD10: J18.9 -See above. Diagnosis and treatment plan were discussed and questions were answered to the patient's satisfaction. Pt acknowledged understanding of concepts and follow up plan. Specific signs and symptoms that would indicate the need for higher level of care were discussed in detail warranting prompt ER evaluation. SUJEY Pappas This note was created using NoteWriter. Subjective Marisol Ponce is a 19 year old female. Review of Systems Objective BP 115/73 Pulse 94 Temp 36 C (96.8 F) Resp 20 Wt 66 kg (145 lb 8.1 oz) LMP 07/06/2024 (Exact Date) SpO2 95% No Physical Exam Assessment and Plan Problem List Items Addressed This Visit None Visit Diagnoses Acute cough - Primary Relevant Orders XR CHEST 2V FRONTAL/LAT documented in this encounter [facility] 07-01-2024 Note HNO ID: [id number] Author: BRAULIO HOU PA Service: ? Author Type: Physician Poly Operator Type: Progress Notes Filed: 07/01/2024 10:40 Note Text: This note was created using Dittitriter. Subjective Marisol Ponce is a 19 year old female. HPI 19-year-old female presents for cough, fever, sore throat, congestion x 1 week. Patient was here on 06/10/2024 and diagnosed with COVID. She states that her symptoms improved, but then a week ago she started getting cough, chest congestion, sore throat, fever and lost her voice. She states her nasal congestion is worse. She has headaches in the front of her head. She states her boyfriend was recently diagnosed with pneumonia on top of COVID. Patient states she is also having some ear pain. No vomiting or diarrhea. Her sore throat and loss of voice are new this week as well. She has had fevers, Tmax 101 ?F a few days ago. No chest pain or shortness of breath. No vomiting or diarrhea. Still able to eat and drink. She has been taking [id number]-wyj-[id number] cold medications with some improvement. She is not or breast-feeding. PAST MEDICAL HISTORY 07/08/2015: ADHD (attention deficit hyperactivity disorder), combined type 06/01/2023: Generalized anxiety disorder PAST SURGICAL HISTORY 02/22/2024: NEXPLANON INSERTION Comment: Placed in left arm No date: NONE ALLERGIES Patient has no known allergies. MEDICATIONS etonogestrel (NEXPLANON) subdermal implant 68 mg 1 Each by SUBDERMAL route as directed. BABY ASPIRIN ORAL Take 162 mg by mouth once daily. (Patient not taking: Reported on 01/18/2024) PNV no.95/ferrous fum/folic ac ( ORAL) Take by mouth. (Patient not taking: Reported on 06/10/2024) FAMILY HISTORY Adopted: Yes Social History Tobacco Use Smoking status: Never Smokeless tobacco: Never Vaping Use Vaping status: Never Used Substance Use Topics Alcohol use: Never Drug use: Never Review of Systems Constitutional: Positive for chills and fever. HENT: Positive for congestion, ear pain, sinus pressure, sinus pain and sore throat. Respiratory: Positive for cough. Negative for shortness of breath. Cardiovascular: Negative for chest pain. Gastrointestinal: Negative for diarrhea and vomiting. Neurological: Positive for headaches. Objective BP 122/68 Pulse 90 Temp 37 ?C (98.6 ?F) Resp 18 Wt 69.2 kg (152 lb 8.9 oz) LMP 03/29/2024 (Exact Date) SpO2 97% Physical Exam Vitals and nursing note reviewed. Constitutional: General: She is not in acute distress. Appearance: Normal appearance. She is not toxic-appearing. HENT: Right Ear: Ear canal normal. A middle ear effusion is present. Tympanic membrane is erythematous. Left Ear: Ear canal normal. A middle ear effusion is present. Nose: Nose normal. Mouth/Throat: Mouth: Mucous membranes are moist. Pharynx: Uvula midline. Posterior oropharyngeal erythema present. Tonsils: No tonsillar exudate. 2+ on the right. 2+ on the left. Eyes: Conjunctiva/sclera: Conjunctivae normal. Cardiovascular: Rate and Rhythm: Normal rate and regular rhythm. Pulmonary: Effort: Pulmonary effort is normal. Breath sounds: Normal breath sounds. No wheezing, rhonchi or rales. Skin: General: Skin is warm and dry. Neurological: Mental Status: She is alert. Assessment and Plan ASSESSMENT/PLAN: 1. Sore throat - ICD9: 462, ICD10: J02.9 (primary diagnosis) - suspect viral - Group A strep molecular testing negative - Discussed supportive care treatment with fluids, rest and analgesia. - The patient may also use warm salt water gargles, throat lozenges and/or OTC throat spray as needed. - STREP A MOLECULAR (POC) 2. Acute otitis media, right - ICD9: 382.9, ICD10: H66.91 - Will begin treatment with Augmentin 875 mg PO BID for 7 days -Also covering for potential sinusitis, symptoms x 8 days. - Supportive care with plenty of fluids, rest, and analgesia prn. 3. COVID-19 - ICD9: 079.89, ICD10: U07.1 -Positive on 06/10. Symptoms improved, now with new symptoms. Suspect new viral illness. Diagnosis and treatment plan were discussed and questions were answered to the patient's satisfaction. Pt acknowledged understanding of concepts and follow up plan. Specific signs and symptoms that would indicate the need for higher level of care were discussed in detail warranting prompt ER evaluation. SUJEY Pappas [facility] 07-01-2024 History of Present illness Narrative Formatting of this note is different fro m the original. This note was created using Feverter. Subjective Marisol Ponce is a 19 year old female. HPI 19-year-old female presents for cough, fever, sore throat, congestion x 1 week. Patient was here on 06/10/2024 and diagnosed with COVID. She states that her symptoms improved, but then a week ago she started getting cough, chest congestion, sore throat, fever and lost her voice. She states her nasal congestion is worse. She has headaches in the front of her head. She states her boyfriend was recently diagnosed with pneumonia on top of COVID. Patient states she is also having some ear pain. No vomiting or diarrhea. Her sore throat and loss of voice are new this week as well. She has had fevers, Tmax 101 F a few days ago. No chest pain or shortness of breath. No vomiting or diarrhea. Still able to eat and drink. She has been taking crzt-fyv-pwojenr cold medications with some improvement. She is not or breast-feeding. PAST MEDICAL HISTORY 07/08/2015: ADHD (attention deficit hyperactivity disorder), combined type 06/01/2023: Generalized anxiety disorder PAST SURGICAL HISTORY 02/22/2024: NEXPLANON INSERTION Comment: Placed in left arm No date: NONE ALLERGIES Patient has no known allergies. MEDICATIONS etonogestrel (NEXPLANON) subdermal implant 68 mg 1 Each by SUBDERMAL route as directed. BABY ASPIRIN ORAL Take 162 mg by mouth once daily. (Patient not taking: Reported on 01/18/2024) PNV no.95/ferrous fum/folic ac ( ORAL) Take by mouth. (Patient not taking: Reported on 06/10/2024) FAMILY HISTORY Adopted: Yes Social History Tobacco Use Smoking status: Never Smokeless tobacco: Never Vaping Use Vaping status: Never Used Substance Use Topics Alcohol use: Never Drug use: Never Review of Systems Constitutional: Positive for chills and fever. HENT: Positive for congestion, ear pain, sinus pressure, sinus pain and sore throat. Respiratory: Positive for cough. Negative for shortness of breath. Cardiovascular: Negative for chest pain. Gastrointestinal: Negative for diarrhea and vomiting. Neurological: Positive for headaches. Objective BP 122/68 Pulse 90 Temp 37 C (98.6 F) Resp 18 Wt 69.2 kg (152 lb 8.9 oz) LMP 03/29/2024 (Exact Date) SpO2 97% Physical Exam Vitals and nursing note reviewed. Constitutional: General: She is not in acute distress. Appearance: Normal appearance. She is not toxic-appearing. HENT: Right Ear: Ear canal normal. A middle ear effusion is present. Tympanic membrane is erythematous. Left Ear: Ear canal normal. A middle ear effusion is present. Nose: Nose normal. Mouth/Throat: Mouth: Mucous membranes are moist. Pharynx: Uvula midline. Posterior oropharyngeal erythema present. Tonsils: No tonsillar exudate. 2+ on the right. 2+ on the left. Eyes: Conjunctiva/sclera: Conjunctivae normal. Cardiovascular: Rate and Rhythm: Normal rate and regular rhythm. Pulmonary: Effort: Pulmonary effort is normal. Breath sounds: Normal breath sounds. No wheezing, rhonchi or rales. Skin: General: Skin is warm and dry. Neurological: Mental Status: She is alert. Assessment and Plan ASSESSMENT/PLAN: 1. Sore throat - ICD9: 462, ICD10: J02.9 (primary diagnosis) - suspect viral - Group A strep molecular testing negative - Discussed supportive care treatment with fluids, rest and analgesia. - The patient may also use warm salt water gargles, throat lozenges and/or OTC throat spray as needed. - STREP A MOLECULAR (POC) 2. Acute otitis media, right - ICD9: 382.9, ICD10: H66.91 - Will begin treatment with Augmentin 875 mg PO BID for 7 days -Also covering for potential sinusitis, symptoms x 8 days. - Supportive care with plenty of fluids, rest, and analgesia prn. 3. COVID-19 - ICD9: 079.89, ICD10: U07.1 -Positive on 06/10. Symptoms improved, now with new symptoms. Suspect new viral illness. Diagnosis and treatment plan were discussed and questions were answered to the patient's satisfaction. Pt acknowledged understanding of concepts and follow up plan. Specific signs and symptoms that would indicate the need for higher level of care were discussed in detail warranting prompt ER evaluation. SUJEY Pappas documented in this encounter [facility] 06-11-2024 Telephone encounter Note Formatting of this note might be differe nt from the original. results given by noc. Anita cShaefer MA [facility] 06-11-2024 Miscellaneous Notes Formatting of this note might be differe nt from the original. results given by noc. Anita Schaefer MA Left message for patient to return call. Anita Schaefer MA Please let patient know she tested positive for Beth-19. Isolate until 24 hours fever free and symptoms improving documented in this encounter [facility] 06-11-2024 Telephone encounter Note Formatting of this note might be differe nt from the original. Patient calling with request for lab result Patient denies any new or worsening symptoms of which a provider is not aware: Yes. COVID + results and recommendation to isolate until 24 hours fever free and symptoms improving provided per telephone encounter/request of SUJEY Juarez. Patient verbalizes understanding. GO TO THE EMERGENCY ROOM OR CALL 911 IF: * You develop any new symptoms * Your condition worsens * You are concerned or anxious about your condition for any other reason. If you have any questions, you can call Nurse front office associate back. Susan Francois RN [facility] 06-11-2024 Miscellaneous Notes Formatting of this note might be differe nt from the original. Patient calling with request for lab result Patient denies any new or worsening symptoms of which a provider is not aware: Yes. COVID + results and recommendation to isolate until 24 hours fever free and symptoms improving provided per telephone encounter/request of SUJEY Juarez. Patient verbalizes understanding. GO TO THE EMERGENCY ROOM OR CALL 911 IF: * You develop any new symptoms * Your condition worsens * You are concerned or anxious about your condition for any other reason. If you have any questions, you can call Nurse front office associate back. Susan Francois RN documented in this encounter [facility] 06-11-2024 Telephone encounter Note Formatting of this note might be differe nt from the original. Left message for patient to return call. Anita Schaefer MA [facility] 06-11-2024 Telephone encounter Note Formatting of this note might be differe nt from the original. Please let patient know she tested positive for Beth-19. Isolate until 24 hours fever free and symptoms improving [facility] Work Phone: 06-10-2024 Note HNO ID: [id number] Author: BRAULIO HOU PA Service: ? Author Type: Physician Poly Operator Type: Progress Notes Filed: 06/10/2024 15:16 Note Text: This note was created using Dittitriter. Subjective Marisol Ponce is a 19 year old female. HPI 19-year-old female presents for COVID test. Patient states her boyfriend recently tested positive for COVID. Patient has a little bit of nasal congestion. She had a sore throat earlier this week, but that resolved. She has no cough, chest pain, shortness of breath. No fevers. No other complaint. PAST MEDICAL HISTORY 07/08/2015: ADHD (attention deficit hyperactivity disorder), combined type 06/01/2023: Generalized anxiety disorder PAST SURGICAL HISTORY 02/22/2024: NEXPLANON INSERTION Comment: Placed in left arm No date: NONE ALLERGIES Patient has no known allergies. MEDICATIONS etonogestrel (NEXPLANON) subdermal implant 68 mg 1 Each by SUBDERMAL route as directed. BABY ASPIRIN ORAL Take 162 mg by mouth once daily. (Patient not taking: Reported on 01/18/2024) PNV no.95/ferrous fum/folic ac ( ORAL) Take by mouth. (Patient not taking: Reported on 06/10/2024) FAMILY HISTORY Adopted: Yes Social History Tobacco Use Smoking status: Never Smokeless tobacco: Never Vaping Use Vaping Use: Never used Substance Use Topics Alcohol use: Never Drug use: Never Review of Systems Constitutional: Negative for chills and fever. HENT: Positive for congestion and sore throat. Negative for ear pain. Respiratory: Negative for cough and shortness of breath. Cardiovascular: Negative for chest pain. Gastrointestinal: Negative for diarrhea and vomiting. Objective BP 122/80 Pulse 78 Temp 36.6 ?C (97.8 ?F) Resp 16 Wt 70.2 kg (154 lb 12.2 oz) LMP 03/29/2024 (Exact Date) SpO2 99% Physical Exam Vitals and nursing note reviewed. Constitutional: General: She is not in acute distress. Appearance: Normal appearance. She is not toxic-appearing. HENT: Right Ear: Tympanic membrane and ear canal normal. Left Ear: Tympanic membrane and ear canal normal. Nose: Nose normal. Mouth/Throat: Mouth: Mucous membranes are moist. Eyes: Conjunctiva/sclera: Conjunctivae normal. Cardiovascular: Rate and Rhythm: Normal rate and regular rhythm. Pulmonary: Effort: Pulmonary effort is normal. Breath sounds: Normal breath sounds. No wheezing, rhonchi or rales. Skin: General: Skin is warm and dry. Neurological: Mental Status: She is alert. Assessment and Plan ASSESSMENT/PLAN: 1. Exposure to COVID-19 virus - ICD9: V01.79, ICD10: Z20.822 (primary diagnosis) - COVID NAAT, UPPER RESPIRATORY, ROUTINE -Not a candidate for antiviral. -Supportive treatment at home 2. Nasal congestion - ICD9: 478.19, ICD10: R09.81 - COVID NAAT, UPPER RESPIRATORY, ROUTINE Diagnosis and treatment plan were discussed and questions were answered to the patient's satisfaction. Pt acknowledged understanding of concepts and follow up plan. Specific signs and symptoms that would indicate the need for higher level of care were discussed in detail warranting prompt ER evaluation. SUJEY Pappas [facility] 06-10-2024 History of Present illness Narrative Formatting of this note is different fro m the original. This note was created using Browsarity. Subjective Marisol Ponce is a 19 year old female. HPI 19-year-old female presents for COVID test. Patient states her boyfriend recently tested positive for COVID. Patient has a little bit of nasal congestion. She had a sore throat earlier this week, but that resolved. She has no cough, chest pain, shortness of breath. No fevers. No other complaint. PAST MEDICAL HISTORY 07/08/2015: ADHD (attention deficit hyperactivity disorder), combined type 06/01/2023: Generalized anxiety disorder PAST SURGICAL HISTORY 02/22/2024: NEXPLANON INSERTION Comment: Placed in left arm No date: NONE ALLERGIES Patient has no known allergies. MEDICATIONS etonogestrel (NEXPLANON) subdermal implant 68 mg 1 Each by SUBDERMAL route as directed. BABY ASPIRIN ORAL Take 162 mg by mouth once daily. (Patient not taking: Reported on 01/18/2024) PNV no.95/ferrous fum/folic ac ( ORAL) Take by mouth. (Patient not taking: Reported on 06/10/2024) FAMILY HISTORY Adopted: Yes Social History Tobacco Use Smoking status: Never Smokeless tobacco: Never Vaping Use Vaping Use: Never used Substance Use Topics Alcohol use: Never Drug use: Never Review of Systems Constitutional: Negative for chills and fever. HENT: Positive for congestion and sore throat. Negative for ear pain. Respiratory: Negative for cough and shortness of breath. Cardiovascular: Negative for chest pain. Gastrointestinal: Negative for diarrhea and vomiting. Objective BP 122/80 Pulse 78 Temp 36.6 C (97.8 F) Resp 16 Wt 70.2 kg (154 lb 12.2 oz) LMP 03/29/2024 (Exact Date) SpO2 99% Physical Exam Vitals and nursing note reviewed. Constitutional: General: She is not in acute distress. Appearance: Normal appearance. She is not toxic-appearing. HENT: Right Ear: Tympanic membrane and ear canal normal. Left Ear: Tympanic membrane and ear canal normal. Nose: Nose normal. Mouth/Throat: Mouth: Mucous membranes are moist. Eyes: Conjunctiva/sclera: Conjunctivae normal. Cardiovascular: Rate and Rhythm: Normal rate and regular rhythm. Pulmonary: Effort: Pulmonary effort is normal. Breath sounds: Normal breath sounds. No wheezing, rhonchi or rales. Skin: General: Skin is warm and dry. Neurological: Mental Status: She is alert. Assessment and Plan ASSESSMENT/PLAN: 1. Exposure to COVID-19 virus - ICD9: V01.79, ICD10: Z20.822 (primary diagnosis) - COVID NAAT, UPPER RESPIRATORY, ROUTINE -Not a candidate for antiviral. -Supportive treatment at home 2. Nasal congestion - ICD9: 478.19, ICD10: R09.81 - COVID NAAT, UPPER RESPIRATORY, ROUTINE Diagnosis and treatment plan were discussed and questions were answered to the patient's satisfaction. Pt acknowledged understanding of concepts and follow up plan. Specific signs and symptoms that would indicate the need for higher level of care were discussed in detail warranting prompt ER evaluation. SUJEY Pappas documented in this encounter [facility] 04-13-2024 History of Present illness Narrative Formatting of this note is different fro m the original. Marisol Ponce is a 18 year old female who presents for problem visit of irregular vaginal bleeding. Nexplanon placed 02/22/24 and patient reports having 2 cycles in February. Stated periods were heavy and she was saturating pads. Went to ED and had blood work which was normal and got some IV fluids. No current bleeding. Recently stopped and is now formula feeding. OB History T1 L1 SAB0 IAB0 Ectopic0 Multiple0 Live Births1 [employer] History LMP: 03/29/2024 (Exact Date), Unknown Age at Menarche: Age at First : Age at Menopause: [employer] History Comments: Sexual Activity: Yes; Male Contraception: No contraception data on record PAST MEDICAL HISTORY Diagnosis Date ADHD (attention deficit hyperactivity disorder), combined type 07/08/2015 Generalized anxiety disorder 06/01/2023 PAST SURGICAL HISTORY Procedure Laterality Date NEXPLANON INSERTION 02/22/2024 Placed in left arm NONE FAMILY HISTORY Adopted: Yes Social History Tobacco Use Smoking status: Never Smokeless tobacco: Never Vaping Use Vaping Use: Never used Substance Use Topics Alcohol use: Never Drug use: Never Current Outpatient Medications Medication Sig etonogestrel (NEXPLANON) subdermal implant 68 mg 1 Each by SUBDERMAL route as directed. PNV no.95/ferrous fum/folic ac ( ORAL) Take by mouth. BABY ASPIRIN ORAL Take 162 mg by mouth once daily. (Patient not taking: Reported on 01/18/2024) No current facility-administered medications for this visit. Allergies As of Date: 04/13/2024 (No Known Allergies) Fully Assessed 04/13/2024 REVIEW OF SYSTEMS Abdomen: No bloating, early satiety, indigestion, or increased flatulence. No abdominal pain, nausea, vomiting, diarrhea, or constipation. Bladder: No dysuria, gross hematuria, urinary frequency, urinary urgency, or incontinence. Breast: No breast lumps, nipple d/c, overlying skin changes, redness or skin retraction. Expanded ROS: N/A Allergies and current medication updated:Yes EXAM: BP 98/62 Wt 151 lb (68.5kg) LMP 03/29/2024 GENERAL: pleasant, female in no apparent distress HEENT: Normocephalic and atraumatic NECK: Supple and full range of motion DERMATOLOGY: Normal and without lesions BREAST: deferred CHEST: Normal inspiratory effort ABDOMEN: soft, non-tender, and no masses PELVIC: deferred BIMANUAL: deferred NEURO: alert and oriented x3,exam grossly non-focal EXTREMITIES: normal ASSESSMENT/PLAN: 1. Breakthrough bleeding on Nexplanon - ICD9: 626.6, V45.59, ICD10: N92.1, Z97.5 (primary diagnosis) 2. Menorrhagia with irregular cycle - ICD9: 626.2, ICD10: N92.1 - Reviewed spotting/break through bleeding can be normal after Nexplanon insertion as well as first cycles after - Bleeding precautions reviewed and when to notify office - Support provided - RTO as needed or yearly exams Ruth Ramirez APRN.CNM documented in this encounter [facility] 03-20-2024 History of Present illness Narrative Formatting of this note might be differe nt from the original. Patient triaged at [facility]. Here today with weakness and dizziness. Also reports very heavy menstrual cycle for 1 week, is 2 months post . I will refer to ER. [employer] other to drive pov. Patient in no visible distress at time of triage. documented in this encounter [facility] 02-22-2024 History of Present illness Narrative Formatting of this note might be differe nt from the original. Marisol is a 18 year old patient who presents for Nexplanon insertion. Patient's last menstrual period was 02/10/2024 (exact date). VITALS: BP 110/72 Wt 151 lb 3.2 oz (68.6kg) LMP 02/10/2024 test: negative Nexplanon lot #: [id number] Exp date: 08/2025 UNIVERSAL PROTOCOL / SAFETY CHECKLIST Procedure to be Performed: Nexplanon Insertion Sign In: A Moment of CARE was completed. Personnel directly involved with the procedure wore the appropriate PPE (Personal Protective Equipment). Patient/Surrogate Stated/Verified: PATIENT VERIFIED(optional for EMERGENT procedures): Patient name, Date of , Relevant allergies, and The intended procedure Time Out Communication: Intended patient and procedure match the source documents. Consent documented and matches the intended procedure. Sign Out: SIGN OUT (optional for EMERGENT procedures): No specimen collected. TECHNIQUE: Patient placed in supine position with left) bent at the elbow and placed over the head. Skin cleansed with betadine. 2mL of 1% lidocaine with 1:100,000 epi injected subQ along insertion site. Nexplanon benito inserted under sterile technique. After insertion by the provider, the benito was palpable under the skin by both patient and provider. Steristrips and sterile pressure dressing applied. A&P: Nexplanon inserted without complications. Patient user card was filled out and given to the patient. The patient was instructed to remove the dressing after 24 hours. Advised to use backup contraception for 7 days. Ruth Ramirez APRN.CNM documented in this encounter [facility] 02-22-2024 Instructions Karmen Liu MA - 02/22/2024 10:38 AM EDT NEXPLANON PATIENT EDUCATION You may remove dressing in 24 hours. Expect some bruising around insertion site. You may take over the counter pain medication (i.e. Tylenol, motrin, advil, etc) if you have discomfort. Call your provider with excessive bruising or pain. Continue to use condoms for STD prevention. You should use backup contraception for 7 days to prevent . documented in this encounter [facility] 02-15-2024 History of Present illness Narrative Formatting of this note is different fro m the original. VISIT Marisol Ponce is a 18 year old year old here for 6 week visit. Boyfriend is having knee surgery today. Mom is watching baby. She wants to return to work and needs a letter. Delivery Summary: C/S by DM on 01/03/2024 ROS/ Recovery: Feeding: Breast and bottle feeding problems: None Menses since delivery: None Menstrual pattern prior to : Regular periods Zachary since delivery: Resumed Started feeling itchy in vaginal area a couple of days ago. Thinks she is swollen. Depression: denies symptoms of depression. OB Depression and Anxiety Screening- This Encounter (since 02/14/2024) Over the past 2 weeks have you felt down, depressed, or hopeless? Negative Over the past two weeks, have you felt little interest or pleasure in doing things? Negative Feeling nervous, anxious or on edge 0-Not at all Not being able to stop or control worrying 0-Not al all Anxiety Pre-Screening Total (If >/= 3 additional questions will be reviewed) 0 Emotional support: Yes Bowel symptoms: Negative for abdominal discomfort, blood in stools or black stools Abdomen: She reports no incisional redness, tenderness, erythema Bladder symptoms: No dysuria, gross hematuria, urinary frequency, urinary urgency, or incontinence Other issues: None Last Pap: N/A HPV: N/A PAST MEDICAL HISTORY Diagnosis Date ADHD (attention deficit hyperactivity disorder), combined type 07/08/2015 Generalized anxiety disorder 06/01/2023 PAST SURGICAL HISTORY Procedure Laterality Date NONE FAMILY HISTORY Adopted: Yes Social History Tobacco Use Smoking status: Never Smokeless tobacco: Never Vaping Use Vaping Use: Never used Substance Use Topics Alcohol use: Never Drug use: Never PHYSICAL EXAMINATION: BP 108/66 Wt 151 lb 12.8 oz (68.9kg) LMP 02/10/2024 GENERAL: pleasant, female in no apparent distress HEENT: Normocephalic and atraumatic NECK: Supple and full range of motion DERMATOLOGY: Normal and without lesions BREAST: soft, non-tender, symmetric, no dominant mass, normal nipple-areolar complex, no lymphadenopathy, and no nipple discharge CHEST: Normal inspiratory effort ABDOMEN: soft, non-tender, and no masses. INCISION: No incisional redness, swelling, or drainage PELVIC: external genitalia normal, normal Bartholin's glands, urethra, [place]'s glands, no vulvar lesions, no cervical lesions, good vaginal support, physiologic discharge present, normal appearing perineal body and perianal region BIMANUAL: uterus normal size, shape and consistency, no adnexal masses, non-tender, and no cervical motion tenderness NEURO: alert and oriented x3,exam grossly non-focal EXTREMITIES: normal ASSESSMENT AND PLAN: 18 year old status post CS with normal course. BACT/YEAST - collected and sent Contraception plan: Nexplanon - next week Follow up: RTC for annual exams and PRN Ruth Ramirez APRN.CNM documented in this encounter [facility] 01-18-2024 History of Present illness Narrative Formatting of this note is different fro m the original. EARLY VISIT Marisol Ponce is a 18 year old here for 2 week visit. Delivery Summary: c/s 01/03/24 Failed induction/ intolerance to labor ROS: General: Denies any fever or chills Hypertension Screening: Headache? No. Visual Changes? No Epigastric Pain? No Increased Swelling? No Taking any BP medications at home? No If applicable, monitoring BP at home? (If Yes, include results) NA Mood: normal Depression: denies symptoms of depression. OB Depression and Anxiety Screening- This Encounter (since 01/17/2024) Over the past 2 weeks have you felt down, depressed, or hopeless? Negative Over the past two weeks, have you felt little interest or pleasure in doing things? Negative Feeling nervous, anxious or on edge 0-Not at all Not being able to stop or control worrying 0-Not al all Anxiety Pre-Screening Total (If >/= 3 additional questions will be reviewed) 0 Feeding: Breast feeding problems: None Bladder: No dysuria, gross hematuria, urinary frequency, urinary urgency, or incontinence Bowel symptoms: change in bowel habits Abdomen: She reports no incisional redness, tenderness, erythema Bleeding: none Bottom and Perineum: No issues Sleep: no sleep concerns and sleeps in bassinet/crib in parent's room, feels rested Zachary since delivery: Not resumed Emotional support: Yes Exercise: N/A Other issues: None PHYSICAL EXAMINATION: BP 110/62 Wt 153 lb 6.4 oz (69.6 kg) LMP 03/28/2023 (Exact Date) Yes General: pleasant,female in no apparent distress, A&O x 3. Skin warm and intact. Breast: Deferred Abdomen: soft, non-tender, and no masses /Incision: No incisional redness, swelling, or drainage Pelvic: Deferred Bimanual: Deferred ASSESSMENT AND PLAN: 18 year old status post CS with normal course. Contraception plan: Nexplanon Reinforced 6-week pelvic rest. Encouraged condom usage should patient deviate. R/B/A to Nexplanon and Mirena IUD discussed and questions answered. Patient desires Nexplanon placement. Follow up: Return to Clinic for 6 week visit and as needed Ruth Ramirez APRN.CNM documented in this encounter [facility] 01-06-2024 Hospital Discharge instructions Additional Instructions Date of Discharge: 01/06/24 [facility] Work Phone: 01-06-2024 Discharge summary Note Date/Time January 06, 2024 7:03 am [facility] [address] [place] [address] Discharge Summary 01/06/24 0702 MR#: [id number] Acct: [id number] Name: MARISOL PONCE Rep #:[id number] : 2005 18 From: Sherin Prakash MD PCP: Dr. Lina Fong MD Status:ADM IN [facility] Prov[facility] Date of Admission: 01/03/24 Date of Discharge: 01/06/24 Primary Care Physician: Dr. Lina Fong MD Reason For Visit: Diagnosis Discharge Diagnosis (1) Delivery by section: Status: Acute Plan: d/c home today (2) Post-dates : Status: Acute Code(s): O48.0 - Post-term Qualifiers: Post-term type: 40-42 weeks gestation Qualified Code(s): O48.0 - Post-term Medications at Discharge Home Medications docosahexaenoic acid 200 mg capsule ( DHA) mg PO 12/15/23 acetaminophen 500 mg tablet 1,000 mg (2 x 500 mg) PO Q6 #30 tabs 01/06/24 ibuprofen 600 mg tablet 600 mg PO Q6H #30 tabs 01/06/24 Hospital Course Operations section Procedures None Summary of Care Provided Minutes Spent on Discharge: 22 Hospital Course: Arrive with SROM. Pitocin was used for augmentation. Due to intolerance tolabor Pitocin was discontinued. A primary was recommended. Patient didwell after delivery. Breast feeding on discharge with good pain control. Physical Exam Const alert General Appearance: cooperative GI GI Narrative: soft, moderate distention, fundus firm, appropriately tender. Abdominal bandageclean dry and intact Weight / BMI Weight Weight: 79.6 kg Body Mass Index (BMI) 31.1 ABG / Lab / Microbiology Data 01/04/24 06:22 D/C Instructions Discharge Diet: No restrictions May resume sexual activity in: 4-6 weeks Lifting Restrictions: 20 pounds Additional Activity Instructions: Nothing in the vagina for 4-6 weeks. You may return to work/school in 6 weeks. Call your doctor if your incision/area has: Continuous Slow Oozing, Sudden Increased Bleeding, Increased Pain/ Swelling, Increased Redness and Foul Smelling Discharge Call your doctor if you observe: Fever of 101 or Higher and Using more than 1 pad per hour (for 2 hours) Suture Line Care: Avoid Pulling/Pushing and Avoid Pinching/Bending Cleanse incision/area with: Keep Dressing Clean & Dry Please Follow Up With: Judy Johnson MD When: Call to make an appointment for an incision check in 1-2 [phone]. You will need a post check in 6 weeks. Meaningful Use Info Meaningful Use Diagnoses (Choose all that apply): None applicable Discharge Plan Admission Admit Date/Time: 01/03/24 05:29 Primary Reason for Your Visit: induction of labor Attending Provider: Ruth Ramirez Primary Care Provider: Lina Fong Instructions Patient Instructions: Section Dc Discharge Orders/Prescriptions Prescriptions: New acetaminophen 500 mg Tablet 1,000 mg PO Q6 Qty: 30 1RF ibuprofen 600 mg Tablet 600 mg PO Q6H Qty: 30 1RF Continued DHA 200 mg capsule PO Referrals / Follow Up: Lina Fong MD [Primary Care Provider] - Disposition Disposition (needs filled in before D/C Order can be placed): Home, Self Care 01/06/24 0708 <Electronically signed by Sherin Prakash MD> Cosigner Signature (if applicable): CC: Dr. Sherin Prakash MD; Dr. Lina Fong MD~ Signed [facility] Work Phone: 1(655) 836-974403-08-2024 Progress note Author Sherin Prakash [facility] January 06, 2024 6:55am Note Date/Time January 06, 2024 6:56 am [facility] Medical Records Department [address] [place] [address] Progress Note - OBGYN 01/06/24 0651 MR#: [id number] Acct: [id number] Name: MARISOL PONCE Rep #:[id number] : 2005 18 From: Sherin Prakash MD PCP: Dr. Lina Fong MD Status:ADM IN Location: GC355-8 Subjective Subjective Feels good. Ambulating and voiding without difficulty. Minimal bleeding. Breast feeding well. D/c home today Objective Data Objective Data Vital Signs: Vital Signs Temp Pulse Resp BP Pulse Ox O2 Del Method 98.0 F 77 16 116/61 L 98 Room Air 01/06/24 01:07 01/06/24 01:07 01/06/24 01:07 01/06/24 01:07 01/06/24 01:07 01/06/24 01:07 Oxygen Delivery Method Room Air Weight: 79.6 kg Body Mass Index (BMI) 31.1 Intake & Output: Intake and Output for Last 24 Hours 01/04/24 01/05/24 01/06/24 23:59 23:59 23:59 Intake Total 706.67 / 706.67 Output Total 1500 / 1500 Balance -793.33 / -793.33 Lab / Micro Data Attestation: I reviewed the patient's lab results. 01/04/24 06:22 ROS Constitutional Constitutional: Denies fatigue, fever(s) or malaise Eyes Eyes: Denies change in vision ENT HEENT: Denies dizziness or headache(s) Cardiovascular Cardiovascular: Denies chest pain, dyspnea or lightheadedness Respiratory/Chest Respiratory/Chest: Denies cough or dyspnea Gastrointestinal Gastrointestinal: Denies change in bowel habits Genitourinary Genitourinary: Denies burning urination or genital lesions Integumentary Integumentary: Denies rash Neurologic Neurologic: Denies confusion, dizziness, headache(s), numbness or weakness Physical Exam Const alert General Appearance: cooperative GI GI Narrative: soft, moderate distention, fundus firm, appropriately tender. Abdominal bandageclean dry and intact Assessment & Plan (1) Delivery by section: PLAN: d/c home today (2) Post-dates : QUALIFIERS: Post-term type: 40-42 weeks gestation Qualified Code(s): O48.0 - Post-term 01/06/2455 <Electronically signed by Sherin Prakash MD> Cosigner Signature (if applicable): CC: ~ Signed [facility] Work Phone: 1(350) 430-261603-07-2024 Progress note Author Sherin Prakash [facility] January 05, 2024 8:21am Note Date/Time January 05, 2024 8:21 am [facility] Medical Records Department [address] [place] [address] [place] [address] Progress Note - OBGYN 01/05/24818 MR#: [id number] Acct: [id number] Name: MARISOL PONCE Rep #:[id number] : 2005 18 From: Sherin Prakash MD PCP: Dr. Lina Fong MD Status:ADM IN Location: KF655-5 Subjective Subjective Doing well. Breast feeding. Pain manageable. Tolerating PO. Ambulating without difficultly. Objective Data Objective Data Vital Signs: Vital Signs Temp Pulse Resp BP Pulse Ox O2 Del Method 97.7 F L 88 16 111/74 99 Room Air 01/04/24 20:10 01/05/24 01:25 01/05/24 01:25 01/05/24 01:25 01/05/24 01:25 01/05/24 01:25 Oxygen Delivery Method Room Air Weight: 79.6 kg Body Mass Index (BMI) 31.1 Intake & Output: Intake and Output for Last 24 Hours 01/03/24 01/04/24 01/05/24 23:59 23:59 23:59 Intake Total 5681.57 / 5681.57 706.67 / 706.67 Output Total 1550 / 1550 1500 / 1500 Balance 4131.57 / 4131.57 -793.33 / -793.33 Lab / Micro Data Attestation: I reviewed the patient's lab results. 01/04/24 06:22 ROS Constitutional Constitutional: Denies fatigue, fever(s) or malaise Eyes Eyes: Denies change in vision ENT HEENT: Denies dizziness or headache(s) Cardiovascular Cardiovascular: Denies chest pain, dyspnea or lightheadedness Respiratory/Chest Respiratory/Chest: Denies cough or dyspnea Gastrointestinal Gastrointestinal: Denies change in bowel habits Genitourinary Genitourinary: Denies burning urination or genital lesions Integumentary Integumentary: Denies rash Neurologic Neurologic: Denies confusion, dizziness, headache(s), numbness or weakness Physical Exam Const alert General Appearance: cooperative GI GI Narrative: soft, moderate distention, fundus firm, appropriately tender. Abdominal bandageclean dry and intact Assessment & Plan (1) Delivery by section: PLAN: Plan Expect D/c tomorrow 01/05/24 0821 <Electronically signed by Sherin Prakash MD> Cosigner Signature (if applicable): CC: ~ Signed [facility] Work Phone: 1(109) 398-380403-06-2024 Progress note Author Ruth Ramirez [facility] January 04, 2024 8:09am Note Date/Time January 04, 2024 8:09 am [facility] Medical Records Department [address] [place] [address] Progress Note - OBGYN 01/04/24 0806 MR#: [id number] Acct: [id number] Name: MARISOL PONCE Rep #:[id number] : 2005 18 From: Ruth Ramirez CNAlejandro PCP: Dr. Lina Fong MD Status:ADM IN Location: VQ957-4 Subjective Subjective Patient seen at bedside. Resting quietly. Has stood at bedside but not ambulated. Pain is controlled at this time. with support. Objective Data Objective Data Vital Signs: Vital Signs Temp Pulse Resp BP Pulse Ox O2 Del Method 98.5 F 81 18 115/56 L 100 Room Air 01/04/24 03:48 01/04/24 03:48 01/04/24 05:56 01/04/24 03:48 01/04/24 05:56 01/04/24 05:56 Oxygen Delivery Method Room Air Weight: 175 lb 7.807 oz Body Mass Index (BMI) 31.1 Intake & Output: Intake and Output for Last 24 Hours 01/02/24 01/03/24 01/04/24 23:59 23:59 23:59 Intake Total 5681.57 / 5681.57 706.67 / 706.67 Output Total 1550 / 1550 1100 / 1100 Balance 4131.57 / 4131.57 -393.33 / -393.33 Lab / Micro Data 01/04/24 06:22 Labs: Laboratory Results - last 24 hr 01/03/24 05:45: Syphilis Total Ab Non-reactive 01/04/24 06:22: WBC 9.9, RBC 3.50 L, Hgb 10.0 L, Hct 30.8 L, MCV 88.0, MCH 28.6,MCHC 32.5, RDW Std Deviation 44.4 H, RDW Coeff of Jama 14.0, Plt Count 138 L, MPV10.9 ROS Eyes Eyes: Denies blurry vision, change in vision or spots in vision ENT HEENT: Denies dizziness or headache(s) Cardiovascular Cardiovascular: Denies abdominal pain, chest pain or dyspnea Respiratory/Chest Respiratory/Chest: Denies cough, dyspnea, shortness of breath at rest or shortness of breath with exertion Gastrointestinal Gastrointestinal: Denies abdominal pain, diarrhea or vomiting Genitourinary Genitourinary: Denies change in urinary stream, difficulty urinating or dysuria Musculoskeletal Musculoskeletal: Reports none Integumentary Integumentary: Denies rash Neurologic Neurologic: Denies dizziness, headache(s), memory loss or weakness Physical Exam Narrative Dressing is dry and intact Const alert and no apparent distress General Appearance: cooperative and comfortable Exam Limitations: no limitations HEENT normocephalic Eyes General Eye: normal appearance of both eyes Neck full ROM General: normal visual inspection Chest Chest: symmetrical chest wall rise Resp normal respiratory effort and normal air movement Effort and Inspection: symmetric chest movement Auscultation: clear to auscultation bilaterally Cardio regular rate and regular rhythm GI normal to inspection, nondistended, normoactive bowel sounds Back/Spine normal ROM Extremity full ROM and no calf tenderness General Extremity: normal exam except as noted Skin no rashes or lesions noted Neuro CN's II-XII intact bilaterally Psych mental status grossly normal Assessment & Plan (1) Delivery by section: (2) Care and examination of lactating mother: (3) Postoperative abdominal pain: PLAN: Plan POD 1 Primary C/S Increase ambulation Pain control support Anticipate discharge home tomorrow 01/04/24 0809 <Electronically signed by Ruth Ramirez CNM> Cosigner Signature (if applicable): CC: ~ Signed [facility] Work Phone: 1(554) 261-370803-06-2024 History of Present illness Narrative* Sherin Catherine RN - 01/04/2024 8:38 AM EST Patient delivered via C/S at [facility] on 01/03/24 per Taylor Tong MD. See OB Outcome note. Sherin Catherine RN documented in [facility] encounterBl[facility]05[facility]2024 Progress note Author M Taylor [facility] January 03, 2024 2:17pm Note Date/Time January 03, 2024 2:17 pm [facility] Medical Records Department [address] [place] [address] Progress Note 01/03/241416 MR#: [id number] Acct: [id number] Name: MARISOL PONCE Rep #:[id number] : 2005 18 From: Taylor Tong MD PCP: Dr. Lina Fong MD Status:ADM IN [facility] Note pt seen at bedside, resting comfortably with epidural in place. Pitocin infusing- cat 1, sometimes cat 2 FHR tracing. pt still 2cm per RN. 01/03/241416 <Electronically signed by Taylor Tong MD> Taylor Tong MD Cosigner Signature (if applicable): CC: ~ Signed [facility] Work Phone: 1(925) 476-803103-05-2024 Progress note Author [facility] January 03, 2024 7:54am Note Date/Time January 03, 2024 7:54 am [facility] Medical Records Department [address] [facility] [place] [address] Progress Note 01/03/24752 MR#: [id number] Acct: [id number] Name: MARISOL PONCE Rep #:[id number] : 2005 18 From: Taylor Tong MD PCP: Dr. Lina Fong MD Status:ADM IN Location: Progress Note pt seen in room up walking around. pt reports feeling some contractions - starting to get slightly more painful. FHR cat 1. will start pitocin. Pt reportsclear amniotic fluid rupture at 3:45am. 01/03/24753 <Electronically signed by Taylor Tong MD> Taylor Tong MD Cosigner Signature (if applicable): CC: ~ Signed [facility] Work Phone: 1(524) 202-664803-05-2024 History and physical note Author Ruth Ramirez [facility] January 03, 2024 6:54am Note Date/Time January 03, 2024 6:54 am [facility] Medical Records Department [address] [place] [address] H&P Exam - ORTHOTIC PRACTITIONER 01/03/2446 MR#: [id number] Acct: [id number] Name: MARISOL PONCE Rep #:[id number] : 2005 18 From: Ruth Ramirez CNM PCP: Dr. Lina Fong MD Status:ADM IN Location: KX440-0 HPI - General General Date of Admission: 01/03/24 HPI Narrative MARISOL PONCE, is a 18 F at 41 weeks who presents with spontaneous ruptureof membranes. PFSH PFSH Medical History no medical history Home Medications docosahexaenoic acid 200 mg capsule ( DHA) mg PO 12/15/23 [History Last Taken 01/02/24] Allergy/AdvReac Type Severity Reaction Status Date / Time red dye AdvReac Vomiting Verified 12/15/23 23:40 Family History no significant family his Surgical History no surgical history Social History Smoking Status: Never smoker History Elective abortions Hx Para 0 Spontaneous abortions Hx # Term Pregnancies Ectopic pregnancies Hx # Pregnancies Multiple births # of living children NST FHR Rate Baby A Baseline: 130 Variability:: Moderate Accelerations:: 15 x 15 Decelerations:: None NST Reactive:: Yes Uterine Activity:: irregular ROS Eyes Eyes: Denies blurry vision, change in vision or spots in vision ENT HEENT: Denies dizziness or headache(s) Cardiovascular Cardiovascular: Denies abdominal pain, chest pain or dyspnea Respiratory/Chest Respiratory/Chest: Denies cough, dyspnea, shortness of breath at rest or shortness of breath with exertion Gastrointestinal Gastrointestinal: Denies abdominal pain, diarrhea or vomiting Genitourinary Genitourinary: Denies change in urinary stream, difficulty urinating or dysuria Musculoskeletal Musculoskeletal: Reports none Integumentary Integumentary: Denies rash Neurologic Neurologic: Denies dizziness, headache(s), memory loss or weakness Psychiatric Psychiatric: Reports none Vital Signs Vital Signs Vital Signs: 01/03/24 05:00 01/03/24 05:00 01/03/24 05:00 Temperature Temperature Source Pulse Rate 93 Respiratory Rate Blood Pressure 128/87 H BP Systolic 128 BP Diastolic 87 Pulse Ox 91 01/03/24 05:00 01/03/24 05:00 01/03/24 05:00 Temperature 98.0 F Temperature Source Temporal Pulse Rate Respiratory Rate 16 Blood Pressure BP Systolic BP Diastolic Pulse Ox Weight Weight: 175 lb 7.807 oz Body Mass Index (BMI) 31.1 Physical Exam Const alert, oriented x3 and no apparent distress General Appearance: cooperative Orientation / Consciousness: awake Exam Limitations: no limitations HEENT normocephalic Head and Scalp: normal to inspection Eyes General Eye: normal appearance of both eyes Neck full ROM and no lymphadenopathy Lymph Lymphatic: no lymphadenopathy noted Chest inspection of chest normal Resp normal respiratory effort, normal air movement and clear to auscultation bilaterally Effort and Inspection: able to speak in complete sentences and symmetric chest movement Cardio regular rate and regular rhythm GI normal to inspection, nondistended, normoactive bowel sounds Amniotic Fluid: clear amniotic fluid Back/Spine normal ROM Extremity full ROM and no calf tenderness Skin no rashes or lesions noted General Skin Exam: no breakdown Neuro oriented x3 and CN's II-XII intact bilaterally Psych mental status grossly normal and thought process normal Labs Labs Labs: Blood Type A POSITIVE Antibody Screen NEGATIVE Hct 35.9 % (37-46) L Hgb 11.3 g/dL (12.0-15.0) L Syphilis Total Ab Pending GBS Negative Assessment & Plan (1) Spontaneous rupture of amniotic membranes: (2) 41 weeks gestation of : (3) Post-dates : (4) Teen : PLAN: Plan ROM plus- positive Admit to labor and delivery CE / Routine labs GBS negative Start IV fluids and run per orders Start Pitocin at 2 mu/min and increase per policy Dr. Light notified of admission and Dr. Tong assuming management of patient 01/03/24 0654 <Electronically signed by Ruth Ramirez CNM> Cosigner Signature (if applicable): CC: KASIE Ramirez; Dr. Lina Fong MD~ Signed [facility] Work Phone: 1(671) 525-284703-04-2024 Miscellaneous Notes* Telephone Encounter - Chemo Aguirre RN - 01/02/2024 12:00 PM EST Patient notified. CHEMO AGUIRRE RN * Telephone Encounter - Ruth Ramirez APRN.CNM - 01/02/2024 11:56 AM EST No. Just keep scheduled induction and encourage increasing hydration and Tylenol if she feels like she is developing a temperature. Ruth Ramirez APRN.CNM * Telephone Encounter - Sherin Catherine RN - 01/02/2024 10:16 AM EST 40w6d Patient calling with c/o cold/cough/congestion symptoms since Tuesday morning. Unsure if she has afever because she doesn't have a thermometer. She is scheduled for an induction tomorrow. List of OTC medications safe in sent via [employer]. Would you like patient to go to Urgent Care to test for COVID or Influenza? Sherin Catherine RN documented in this encounterBl[facility]02-28-[facility] Miscellaneous Notes* Quick Notes - Ruth Ramirez APRN.CNM - 12/28/2023 10:17 AM EST Marisol Ponce is a 18 year old female who [...] visit Ruth Ramirez APRN.CNM documented in this encounterBlanchard [facility]02-28-2024 Instructions* Patient Instructions* Maylin Malik Ma - 12/28/2023 9:31 AM EST SEQUENTIAL SCREENINGS The [facility] offers sequential screenings for women who are interested in screenings for chromosomal abnormalities and certain defects during a . The sequential screen combinesultrasound and blood tests to determine the risk [...] this testing. It will require an appointment withour orthotic finish grinding technician. This is not an ultrasound performed [...] the above symptoms, contact our office at [phone] and ask to speak with anurse. After hours, you can call doctors registry at [phone] OR call [facility] at [phone] ask to have the doctor promotions specialist paged. If you consider this an emergency, dial 9-- or go to your nearest emergency department. NEED HELP? Are you dealing with a violent or abusive relationship? Are you a victim of rape or sexual assult? Call [facility] ([place]) 24 hour Crisis Hotline: 870.309.3559 or 981-932-8015. MANUAL Your Guide to a Healthy manual is now on-line. Visit the [email or web address] to download your free copy documented in this encounterBlanchard [facility]02-21-2024 History of Present illness Narrative* Maylin Malik Ma - 12/21/2023 1:40 PM EST DUDLEY BP A-133/81 6-132/82 5-138/79 4-128/82 3-133/78 2-134/83 1-134/82 documented in this encounterBlanchard [facility]02-21-2024 Miscellaneous Notes* Quick Notes - Ruth Ramirez APRN.CNM - 12/21/2023 1:17 PM EST Marisol Ponce is a 18 year old female who presents at 39w1d for a routine visit. Good movement. Feeling cramps constantly. Cramps don't come and go but always [...] week Ruth Ramirez APRN.CNM documented in this encounterBlanchard [facility]02-21-2024 Instructions* Patient Instructions* Maylin Malik Ma - 12/21/2023 1:03 PM EST SEQUENTIAL SCREENINGS The [facility] offers sequential screenings for women who are interested in screenings for chromosomal abnormalities and certain defects during a . The sequential screen combinesultrasound and blood tests to determine the risk [...] this testing. It will require an appointment withour orthotic finish grinding technician. This is not an ultrasound performed [...] the above symptoms, contact our office at [phone] and ask to speak with anurse. After hours, you can call doctors registry at [phone] OR call [facility] at [phone] ask to have the doctor promotions specialist paged. If you consider this an emergency, dial 9-1-3 or go to your nearest emergency department. NEED HELP? Are you dealing with a violent or abusive relationship? Are you a victim of rape or sexual assult? Call [facility] ([place]) 24 hour Crisis Hotline: 905.914.1416 or 534-699-6589. MANUAL Your Guide to a Healthy manual is now on-line. 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 Patient Identified by Name and : YES, via phone Outreach Outcome/Action OB/PEDS field updated Did you use a PCP flex slot to schedule this appointment? N/A Reason for Outreach [place] Payer: Payor: [employer] / Plan: [employer] PPO [...] 13, 2023 11:27 AM documented in this encounterBlanchard [facility]02-07-2024 Miscellaneous Notes* Quick Notes - Judy Johnson MD - 12/07/2023 8:38 AM EST RR- VB No. LOF No. CTXS No. [...] consider. Judy Johnson M.D. documented in this encounterBlanchard [facility]02-07-2024 Instructions* Patient Instructions* Karmen Liu MA - 12/07/2023 8:18 AM EST SEQUENTIAL SCREENINGS The [facility] offers sequential screenings for women who are interested in screenings for chromosomal abnormalities and certain defects during a . The sequential screen combinesultrasound and blood tests to determine the risk [...] this testing. It will require an appointment withour orthotic finish grinding technician. This is not an ultrasound performed [...] the above symptoms, contact our office at [phone] and ask to speak with anurse. After hours, you can call doctors registry at [phone] OR call [facility] at [phone] ask to have the doctor promotions specialist paged. If you consider this an emergency, dial 9--8 or go to your nearest emergency department. NEED HELP? Are you dealing with a violent or abusive relationship? Are you a victim of rape or sexual assult? Call [facility] ([place]) 24 hour Crisis Hotline: 438.705.8506 or 284-895-1205. MANUAL Your Guide to a Healthy manual is now on-line. Visit the [email or web address] to download your free copy documented in this encounterBlanchard Valley [facility]02-02-2024 Miscellaneous Notes* Quick Notes - Ruth Ramirez APRN.CNM - 12/02/2023 8:24 AM EST Marisol Ponce is a 18 year old female who presents at 36w3d Estimated Date of Delivery: 12/27/23 fora routine visit. Good movement. Denies headache, visual [...] week Ruth Ramirez APRN.CNM documented in this encounterBlanchard Valley [facility]02-02-2024 Instructions* Patient Instructions* Mikey Wilson Cma - 12/02/2023 8:07 AM EST SEQUENTIAL SCREENINGS The [facility] offers sequential screenings for women who are interested in screenings for chromosomal abnormalities and certain defects during a . The sequential screen combinesultrasound and blood tests to determine the risk [...] this testing. It will require an appointment withour orthotic finish grinding technician. This is not an ultrasound performed [...] the above symptoms, contact our office at [phone] and ask to speak with anurse. After hours, you can call doctors registry at [phone] OR call [facility] at [phone] ask to have the doctor promotions specialist paged. If you consider this an emergency, dial 9-1-7 or go to your nearest emergency department. NEED HELP? Are you dealing with a violent or abusive relationship? Are you a victim of rape or sexual assult? Call [facility] ([place]) 24 hour Crisis Hotline: 427.432.7615 or 809-994-2447. MANUAL Your Guide to a Healthy manual is now on-line. Visit the [email or web address] to download your free copy documented in this encounterBlanchard Valley [facility]12-13-2023 Miscellaneous Notes* Quick Notes - Ruth Ramirez APRN.CNM - 10/12/2023 10:27 AM EST IDALIA LIND S: Marisol Ponce is a 18 year old female who presents at 29w1d with JODY of 12/27/2023, by Ultrasoundfor a routine visit. Positive movement. Denies headache, visual changes, chest pain, shortness of breath, vaginal bleeding, leakage of fluid, or dysuria. Feeling well, no complaints. Occasionalheartburn. Will try TUMS. O: See flow sheet Gen: No apparent distress Abd: Gravid, nontender ASSESSMENT/PLAN: 1. Supervision of high risk in third trimester - ICD9: V23.9, ICD10: O09.93 (primary diagnosis) 2. 29 weeks gestation of - ICD9: V22.2, ICD10: Z3A.29 P: 1) PTL precautions reviewed and when to call 2) RTO 2 weeks Ruth Ramirez APRN.CNM documented in this encounterBlanchard Valley [facility]12-13-2023 Instructions* Patient Instructions* Mikey Wilson Cma - 10/12/2023 8:54 AM EST SEQUENTIAL SCREENINGS The [facility] offers sequential screenings for women who are interested in screenings for chromosomal abnormalities and certain defects during a . The sequential screen combinesultrasound and blood tests to determine the risk [...] this testing. It will require an appointment withour orthotic finish grinding technician. This is not an ultrasound performed [...] the above symptoms, contact our office at [phone] and ask to speak with anurse. After hours, you can call doctors registry at [phone] OR call [facility] at [phone] ask to have the doctor promotions specialist paged. If you consider this an emergency, dial 9-1-2 or go to your nearest emergency department. NEED HELP? Are you dealing with a violent or abusive relationship? Are you a victim of rape or sexual assult? Call [facility] ([place]) 24 hour Crisis Hotline: 337.776.7685 or 123-451-6972. MANUAL Your Guide to a Healthy manual is now on-line. Visit the [facility].org/HealthyPregnancyGuide to download your free copy documented in this encounterBlanchard [facility]11-[facility]-2023 Miscellaneous Notes* Quick Notes - Destinee Yao APRN.CNM - 09/07/2023 10:20 AM EST BLANE-S: Marisol Ponce is a 18 year old female who presents at 24w1d with JODY 12/27/2023, for a routinevisit. Good movement, Denies headache, visual changes, chest [...] previously Destinee Yao APRN.CNM documented in this encounterBlanchard Valley [facility]11-08-2023 Instructions* Patient Instructions* Mikey Wilson Cma - 09/07/2023 9:11 AM EST SEQUENTIAL SCREENINGS The [facility] offers sequential screenings for women who are interested in screenings for chromosomal abnormalities and certain defects during a . The sequential screen combinesultrasound and blood tests to determine the risk [...] this testing. It will require an appointment withour orthotic finish grinding technician. This is not an ultrasound performed [...] the above symptoms, contact our office at [phone] and ask to speak with anurse. After hours, you can call doctors registry at [phone] OR call [facility] at [phone] ask to have the doctor promotions specialist paged. If you consider this an emergency, dial 0-4-8 or go to your nearest emergency department. NEED HELP? Are you dealing with a violent or abusive relationship? Are you a victim of rape or sexual assult? Call [facility] ([place]) 24 hour Crisis Hotline: 675.944.4905 or 433-756-1002. MANUAL Your Guide to a Healthy manual is now on-line. Visit the [facility].org/HealthyPregnancyGuide to download your free copy documented in this encounterBlanchard Valley [facility]10-11-2023 History of Present illness Narrative* Destinee Yao APRN.KASIE - 08/10/2023 9:37 AM EDT Centering visit #1, Group #2 BLANE-S: Marisol Ponce is a 18 year old female who presents at 20w1d with JODY:12/27/2023, by Ultrasoundfor a routine visit. Feeling FM. Denies headache, visual changes, chest pain, shortness of breath, vaginal bleeding, leakage of fluid, or dysuria. Feeling well, no complaints. movement present.Anxiety - worse with , father not involved. [...] 5) Sequential screen negative 6) Consult womens [facility] health Destinee Yao APRN.CNM documented in this encounterBlanchard Valley [facility]10-11-2023 Instructions* Patient Instructions* Destinee Yao APRN.CNM - 08/10/2023 9:15 AM EDT SEQUENTIAL SCREENINGS The [facility] offers sequential screenings for women who are interested in screenings for chromosomal abnormalities and certain defects during a . The sequential screen combinesultrasound and blood tests to determine the risk [...] this testing. It will require an appointment withour orthotic finish grinding technician. This is not an ultrasound performed [...] the above symptoms, contact our office at [phone] and ask to speak with anurse. After hours, you can call doctors registry at [phone] OR call [facility] at [phone] ask to have the doctor promotions specialist paged. If you consider this an emergency, dial 9--1 or go to your nearest emergency department. NEED HELP? Are you dealing with a violent or abusive relationship? Are you a victim of rape or sexual assult? Call [facility] ([place]) 24 hour Crisis Hotline: 928.315.2486 or 964-536-6097. MANUAL Your Guide to a Healthy manual is now on-line. Visit the [facility].org/HealthyPregnancyGuide to download your free copy Here are some links for wonderful Providers here in the community and surrounding areas. Do not hesitate to contact their offices, many are offering virtual visits during this time. 4-600-3-ZDWB5OFXC - [place] Maternal Mental Health Hotline If you are in suicidal crisis, please call or text 2-317-101-TALK ( ) or visit the National Suicide Prevention Lifeline website. mchb.rusta.gov [facility] Psychology, Psychiatry, Counseling Connect with therapist/ can do virtual visits [phone] Referral to the [facility] To schedule an appointment, please call the [place] for [facility] Appointment Line: [phone] option 1 [facility] [place], [place] [address] [place] [address] [facility] [address] [place] [address] [facility] [address] [place] [address] [facility] [address] [place], [place] [address] Monica Marshall MD [address] [place] [address] [facility] [address] [facility], [address] [place] [address] [facility] [address] [place] [address] [facility] [place] / [place] [phone]/ [phone] Kam Rosas [address] [facility] [phone] [facility] Anastasia / Marcella [phone] [facility] [address] [place] [address]/ [facility] [facility] [place] [phone] Eliana Soler, KARL, CLC [facility] Workshops, telehealth and at home visits. [phone] [facility] counseling lyme 20 locations [place], [place], [place], [place], [place], [place], [place], [facility], [place], [place], [place], [place], [place], [place], [facility], [place], [place] ,[facility], [place], [place],[facility], [facility] [place], [place], [facility], [facility], Ailyn www.Perceivant [phone] Psychotherapy resources outside of [facility] are listed below [facility] Psychotherapy Web: https://www.EchoFirst/ Support International Online Provider Directory https://Dolphin Geeks/ [facility] https://Language Logistics/ Queerfeed Media for Behavioral Health and Wellness Web: https://makr/ Campus Job for Effective Living Web: https://SupponorlivingmindSHIFT Technologies/ LifeStance Web: https://Youjia.FastSpring/location/critical access hospital/[place]/ [facility] Web: https://www.[facility].org/ [facility] Web: https://IVDiagnostics, Inc..org/ Recovery Resources Mental health and substance abuse help Web: https://www.Glofox.Allylix & RESOURCES Support International Direct peer support and connection to professional resources Non-Emergency Helpline Phone: / Text: 368.363.6038 Web: https://www..net/ Online Provider Directory: https://Dolphin Geeks/ Online Support Meetings: https://www..net/get-help/dta-xumkoz-fypsdpa-meetings/ SUDHIR Baby and Air Tank Assembler Services Web: https://www.Concept.io/ MotherToBlack Swan Energy Expert information on medication use during and Text: 131.578.7093 Web: https://Room 21 Media.Allylix/ NATIONAL REGISTRY FOR PSYCHIATRIC MEDICATIONS Currently studying the safety of antidepressants, ADHD medications and atypical antipsychotics taken during TO PARTICIPATE CALL TOLL-FREE: Web: https://womensmentalhealth.org/research/pregnancyregistry/ Support Groups: [facility]- Follow on facebook Baby Bistro support group led by [facility] department Resilient Mamas - Support Group [facility].org The POEM support group [phone] Www.poemonline.org Follow on facebook - TA sy Online support meetings PSI https://www..net/get-help/tai-fzvkpa-zvutdzb-meetings/ [facility] mommy and me virtual support group 11:30-1pm Support for mothers and new babies and toddlers Bond childbirth education: Childbirth @cc.org or call [phone] CRISIS: CRISIS HOTLINE [phone], 911 or go to the nearest . [facility] [phone] / [facility] [phone] https://www.[facility] park hospitalrb.org Crisis text line text the word HOME to [phone] [facility] [address] [facility] [address] www.GamingTurf Casandra Calhoun clinical counseling [address] [facility] [address] [place] [address] www.GenSight BiologicsrimyDrugCosts.FastSpring [phone] Holding space psychotherapy Susan Ray ENTRY LEVEL DRAFTER SETTLEMENT WORKER-S [address] [facility] www.Terraplay Systems [phone]/ Slim [phone] They all offer virtual. All work with trauma Support groups Online support meetings PSI https://www..net/get-help/vcq-odbodo-ugqbmwd-meetings/ Here are the support groups they offer: Support of parents of 1 to 4 years old children POEM ( Outreach and Encouragement for Moms) offers free support for mothers experiencing depression, anxiety, and other mood and anxiety disorders. Masks are recommended but not required. No pre-registration required. Babies in arms welcome. meetings now take place on the and Tuesday of each month Location: [facility] [address] [place] [address] Room 122 (library room) 7-8:00 p.m. When you enter the voodoo parking lot off of [address] the entrance door closest to our meeting room is on the front of the building toward the right. For those who are more comfortable with a virtual platform, POEM offers online support group options several days of the week. To register for an online group or to find out more about PO, website at: https://mhaohio.org/get-help/glrdcswg-snlrlg-yqzuxb/poem-services/ offer a confidential helpline: private Facebook group is called CHELSEA [facility] HospitalMcdermottelizabeth Sy Here are the groups they offer: Traumatic childbirth resources: Http://pattch.org/ https://www.ZoomSaferkelleyBest Teacher.FastSpring/ documented in this encounterBlanchard Valley [facility]09-13-2023 Miscellaneous Notes* Quick Notes - Taylor Echeverria MD - 07/13/2023 12:39 PM EDT DM- Pt doing well today. Denies Vaginal Bleeding, Leaking fluid, or contractions. 2nd trimester screen. Flu vaccine today. RTO 4 wks. Anatomy us ordered. Centering for next visit. Taylor Nelson MD documented in this encounterBlanchard Valley [facility]09-13-2023 Instructions* Patient Instructions* Erika Garza Ma - 07/13/2023 11:11 AM EDT SEQUENTIAL SCREENINGS The [facility] offers sequential screenings for women who are interested in screenings for chromosomal abnormalities and certain defects during a . The sequential screen combinesultrasound and blood tests to determine the risk [...] this testing. It will require an appointment withour orthotic finish grinding technician. This is not an ultrasound performed [...] the above symptoms, contact our office at [phone] and ask to speak with anurse. After hours, you can call doctors registry at [phone] OR call [facility] at [phone] ask to have the doctor promotions specialist paged. If you consider this an emergency, dial 6-2-7 or go to your nearest emergency department. NEED HELP? Are you dealing with a violent or abusive relationship? Are you a victim of rape or sexual assult? Call [facility] ([facility] 24 hour Crisis Hotline: 185.272.7956 or 399-443-0553. MANUAL Your Guide to a Healthy manual is now on-line. Visit the [facility].org/HealthyPregnancyGuide to download your free copy documented in this encounterBlanchard Valley [facility]09-06-2023 Miscellaneous Notes* Telephone Encounter - Karmen Liu MA - 07/06/2023 1:57 PM EDT Scheduled. Karmen Liu MA * Telephone Encounter - Karmen Liu MA - 07/06/2023 1:08 PM EDT LM for patient to call back to discuss centering. Karmen Liu MA documented in this encounterBlanchard Valley [facility]08-30-2023 Miscellaneous Notes* Telephone Encounter - Myla Garcia RN - 06/29/2023 4:13 PM EDT Appointment rescheduled. Myla Garcia RN * Telephone Encounter - Myla Garcia RN - 06/28/2023 4:55 PM EDT 14w0d Left message for patient to call office. She is scheduled 07/01/23 with RR, but last OB visit was 06/15. So it is too soon for her to be seen. Please reschedule OB visit to 4 weeks from previous appt. RR please file anatomy u/s too. Myla Garcia RN documented in this encounterBlanchard Valley Health [facility]08-02-2023 History of Present illness Narrative* Taylor Echeverria MD - 06/01/2023 4:51 PM EDT OB point of care ultrasound was performed. See imaging tab for details. Taylor Nelson MD documented in this encounterBlanchard Valley Health [facility]07-28-2023 Miscellaneous Notes* Telephone Encounter - Mikey Wilson Cma - 05/27/2023 3:34 PM EDT Opened in error Mikey Wilson Cma documented in this encounterBlanchard Valley Health [facility]03-20-2023 History of Present illness Narrative* Jazzy Lin APRN.CNP - 01/17/2023 2:30 PM EDT This 17 year old female was started on BC patches and is here for follow-up. States she is compliant She no complaints. Menses are normal and regular on BC patches. Denies abdominal pain, chest pain or headache. No painor swelling in the legs. No other neurologic or pulmonary symptoms. Patient's last menstrual period was 12/27/2022. Menstruation / History: Periods are regular q 21-24 days, lasting 5 days. Dysmenorrhea: mild, occurring none and throughoutmenses. Cyclic symptoms include none. No intermenstrual bleeding, [...] Level: 3 - Low documented in this encounterBlanchard Valley Health [facility]02-27-2023 Instructions* Patient Instructions* Parish Narvaez APRN.CNP - 12/27/2022 12:41 PM EST How to Manage Common Symptoms Associated with COVID for Adults Fever- Fever is a temperature over 100.4 F and can occur when the body is fighting an infection. Tohelp treat a fever: Drink plenty of fluids [...] your chest such as Vicks, which can helpreduce cough. Try cough drops. Avoid smoking and other strong odors or perfumes. Try breathing exercises to keep your lungs open and clear. Take a big deep breath through your noseand hold for 5 seconds before slowly releasing. [...] of water every 10-15 minutes and increase astolerated. You can try sucking an ice cube [...] or concerning to you. documented in this encounterBlanchard Valley Health [facility]02-27-2023 History of Present illness Narrative* Parish Narvaez APRN.CNP - 12/27/2022 12:32 PM EST Subjective HPI Nontoxic-appearing female presents to urgent care with chief complaint of upper respiratory tract like infection. Duration of symptoms 5 days. Associated symptoms sore throat, nasal congestion, nasaldischarge and nonproductive cough. Patient denies the use of any czes-jzi-hlfkbqe medications or home remedies for symptom management. Patient states recent sick contacts with similar signs and symptoms. Patient denies any productive cough, fever, chest pain, shortness of breath, pleuritic pain, rash, abdominal pain, nausea, vomiting or change in bowel or bladder habit. .Patient presents with: Head Congestion: ST, cough, DUQUE x5 days PAST MEDICAL HISTORY Diagnosis Date NEGATIVE MEDICAL HISTORY PAST SURGICAL HISTORY Procedure Laterality Date NONE ALLERGIES Patient has no known allergies. MEDICATIONS Ethinyl Estradiol-Norelgestrom (XULANE) 150-35 mcg/24 hr patch Apply 1 Patch as directed one time aweek. FAMILY HISTORY Adopted: Yes Social History Tobacco Use Smoking status: Never Smokeless tobacco: Never Vaping Use Vaping Use: Never used Substance Use Topics Alcohol use: Never Drug use: Never BP 114/80 Pulse 89 Temp 36.9 C (98.5 F) Resp 18 Wt 57.2 kg (126 lb) LMP 07/29/2022 GgU879% Review of Systems Constitutional: Negative for chills, [...] ear normal. Nose: Congestion present. Mouth/Throat: Lips: Cutter. Mouth: Mucous membranes are moist. Pharynx: Oropharynx [...] patient's clinical presentation is otherwise unremarkable at thistime. Based on exam and clinical finding, the patient is stable for discharge. Plan of care was discussed with patient. Patient verbalizes understanding and agrees to plan of care. This note was generated using Real Time Genomics software. It may contain errors in wording, punctuation, or spelling. Parish Narvaez APRN.GEORGES documented in this encounterBlanchard Valley Health [facility]12-20-2022 Instructions* Patient Instructions* Jazzy Lin APRN.CNP - 10/19/2022 4:07 PM [...] active pills and only 4 placebo pills. Theseare formulated to give you a setter cold rolling machine period. Unless otherwise instructed, you should start your pills the Tuesday following your first day of bleeding with your next period (if your period starts on a Tuesday, you should start pills the same day) Read your information packet that comes with the pills. Pill Benefits The pill is the most popular method of reversible control being used today. Millions of womenrely on oral contraceptives as their control method. It is important to have an examination by your physician to determine if the pill is safe for you. There are several advantages associated with the pill: it is 97-98% effective when used correctly; may improve acne; periods are more regularand less painful; there is less iron deficiency anemia in pill users. halfway use is associated with a decreased incidence of ovarian and uterine cancer. There is also no evidence that the pill increases the incidence of any cancer. How Oral Contraceptives Work Oral contraceptives come in two varieties. One is the combination pill which contains both estrogenand progesterone. Combination pills are considered 98-99% effective [...] effective than the combination pill in preventing preg kam. It is VERY important to take the [...] given. Certain medical conditions may make the pillinappropriate for you, therefore it is very important to be honest and as complete as possible withthe information you share with your doctor. The [...] and mild fluid retention. There is no joint terminal attack controller weight gain with the use of the [...] see if there is any physical cause andpossibly change to another control pill. Problems: Missed [...] pill for the rest of the month. Oryou can stop the pill and start a [...] such as phenytoin, carbamazepine, phenobarbital, topiramate and somemedications for HIV. Let your doctor know if you start taking any of these medications while on thepill. Symptoms to Notify Your Doctor with Immediately: [...] for necessary health information. documented in this encounterBlanchard Valley [facility]12-20-2022 History of Present illness Narrative* Jazzy Lin APRN.CNP - 10/19/2022 3:36 PM EST Marisol Ponce is a 17 year old female who presents for problem visit STD testing and missed menses for 2 month(s). HPI: usually has regular cycle but has missed the past 2 months Typically lasting 4-5 days with some cramping. She has been with 1 partner (age 18), she would likeSTD testing and is consider control. OB History T0 L0 SAB0 IAB0 Ectopic0 Multiple0 Live Births0 Inspector Precision Assembly History LMP: 07/29/2022 Age at Menarche: Age at First : Age at Menopause: Inspector Precision Assembly History Comments: Sexual Activity: Yes; Male Contraception: [...] Level: 3 - Low documented in this encounterBlanchard Valley Health [facility]06-10-2022 History of Present illness Narrative* Flako Hung APRN.CNP - 04/09/2022 2:51 PM EDT Subjective Patient came in because she needed a covid test for travel. Patient denies any symptoms at this time. The history is provided by the patient. No english language learner teacher was used. Review of Systems Constitutional: Negative. Skin: Negative. Objective Physical Exam Constitutional: Appearance: Normal appearance. Cardiovascular: Rate and Rhythm: Normal rate and regular rhythm. Heart sounds: Normal heart sounds. Pulmonary: Effort: Pulmonary effort is normal. Breath sounds: Normal breath sounds. Neurological: Mental Status: She is alert. documented in this encounterBlanchard Valley Health System Bluffton HospitalDischarge summary Author Kalyan Ashraf [facility] Note Date/Time August 11, 2025 1 2:44am [facility] Medical Records Department [address] [place] [address] Emergency Department Summary 08/11/25 MR#: [id number] Acct: [id number] Name: MARISOL PONCE Rep #:[id number] : 2005 20 From: Kalyan Ashraf DO PCP: Care Physician,No Primary Status :DEP ER Location: ED HPI HPI - Female History of Present Illness Chief Complaint: Vag Bld, Preg Informant: patient Narrative Narrative: Patient is a 20-year-old female who reports no significant past medical history. She states that she was a few weeks late on her menstrual cycle and she believes she was . She states that this evening she developed cramping lower abdominal pain and then when she used the restroom there was a large amount of blood within her urine. She states she is unsure if she could be potentially miscarrying or have an infection and with this comes in for evaluation. She denies any history of bleeding disorder or blood thinner use PFSH PFSH Allergy/AdvReac Type Severity Reaction Status Date / Time red dye AdvReac Vomiting Verified 08/10/25 23:22 Surgical History (Updated 08/10/25 @ 23:30 by Ellen Steele) Previous section Social History Smoking Status: Never smoker ROS ROS ED Constitutional Constitutional ED: Denies chills or fever(s) ENT ENT ED: Denies sore throat Cardiovascular Cardiovascular: Denies chest pain Respiratory/Chest Respiratory/Chest: Denies cough or dyspnea Gastrointestinal Gastrointestinal: Reports abdominal pain; Denies diarrhea, nausea or vomiting Genitourinary Genitourinary ED: Reports hematuria; Denies dysuria Musculoskeletal Musculoskeletal: Denies myalgias Integumentary Denies rash Neurologic Neurologic: Denies headache(s) Hematologic/Lymphatic Hematologic/Lymphatic: Denies easy bleeding or easy bruising EXAM Physical Exam Const Vital Signs: 08/10/25 23:20 08/11/25 00:44 Temperature 97.2 F L 97.9 F Temperature Source Oral Pulse Rate 78 63 Respiratory Rate 16 16 Blood Pressure 128/91 H 112/69 Blood Pressure Mean 103 83 Pulse Ox 99 100 Oxygen Delivery Method Room Air Positive well nourished and well developed General Appearance ED: well developed; Negative for pallor HEENT HEENT Narrative: Normocephalic atraumatic Eyes PERRL and EOMs intact bilaterally General Eye ED: Negative for pale conjunctiva or scleral icterus Neck supple Resp normal respiratory effort and clear to auscultation bilaterally Cardio regular rate and regular rhythm GI normal to inspection, nondistended, normoactive bowel sounds, soft to palpation,non-tender, non-distended and no masses GI Narrative: Abdomen is soft nontender and nondistended with normal active bowel sounds. No voluntary guarding or rigidity or pulsatile mass. No organomegaly noted Auscultation: normoactive bowel sounds Palpation: soft Back/Spine no CVA tenderness Extremity normal to inspection and full ROM Neuro oriented x3, CN's II-XII intact bilaterally and no sensory deficits noted Sensorium / Orientation: alert Motor Exam: strength 5/5 throughout Psych mental status grossly normal Skin no rashes or lesions noted and no wounds Skin Narrative: Capillary refill is less than 3 seconds General Skin Exam: Negative for jaundice or pallor MDM MDM MDM Narrative Medical decision making narrative: Patient presented to ER with stable vitals. She reported abdominal cramping with blood in her urine. This could be related to kidney stone versus hemorrhagic cystitis versus complication such as miscarriage as subchorionic hemorrhage. As she does not have any CVA pain I have low concern for kidney stone. Therefore I do not feel the need for an emergent CT scan. Asit is unsure if patient is or not I will hold off on ordering a ultrasound and simply check a serum value at this time along with basic laboratory studies and urine sample. Patient's white count is normal and there is no neutrophil elevation going against infection her hemoglobin hematocrit are normal as well going against acute blood loss anemia and she has no sign of acute kidney injury or electrolyte abnormality. Her urine sample does show blood but no sign of infection going against hemorrhagic cystitis. Her test is negative going against a complication. Based onher report that she was a few weeks late on her menstrual cycle and then the symptoms occurred with abdominal cramping this is most likely menorrhagia and has vitals are stable and there is no findings to suggest need for acute blood loss anemia or complication she is otherwise safe for discharge History & Record Review Discussion w/independent historian: Patient Lab Data Attestation: I reviewed the patient's lab results. Labs: Laboratory Results - last 24 hr 08/10/25 08/10/25 23:50 23:55 WBC 8.9 RBC 4.66 Hgb 13.9 Hct 40.4 MCV 86.7 MCH 29.8 MCHC 34.4 RDW Std Deviation 39.8 RDW Coeff of Jama 12.7 Plt Count 259 MPV 10.7 Immature Gran % (Auto) 1.200 H Neut % (Auto) 55.6 Lymph % (Auto) 35.5 [place] % (Auto) 6.0 Eos % (Auto) 1.4 Baso % (Auto) 0.3 Absolute Neuts (auto) 4.9 Absolute Lymphs (auto) 3.14 Nucleated RBC % 0 Sodium 137 Potassium 4.1 Chloride 104 Carbon Dioxide 22.6 Anion Gap 10 BUN 18 Creatinine 0.56 L Estim Creat Clear Calc 147.47 Est GFR (MDRD) Non-Af 134 BUN/Creatinine Ratio 31.9 H Glucose 115 H Calcium 9.4 Serum , Qual NEGATIVE Urine Color Yellow Urine Clarity Sl. Cloudy Urine pH 5.0 Ur Specific [place] 1.025 Urine Protein 15 H Urine Glucose (UA) Normal Urine Ketones Negative Urine Occult Blood 250 H Urine Nitrite Negative Urine Bilirubin Negative Urine Urobilinogen Normal Ur Leukocyte Esterase Negative Urine RBC 0 SEEN Urine WBC 0 SEEN Ur Squamous Epith Cells 0-5 SEEN Urine Bacteria 0 SEEN Urine Mucus 0 SEEN Discharge Plan Triage Chief Complaint: Vag Bld, Preg ED Provider: Kalyan Ahsraf Dx/Rx/DC Orders Clinical Impression: Menorrhagia Instructions: ED Heavy Menstrual Bleeding Other Ambulatory Orders: Transvaginal Non- (Routine) Facility: [facility] - Location: [facility] Ordered By: Dr. Kalyan Ashraf Primary Care Provider: Care Physician,No Primary Referrals: Sherin Painter DO [Med Staff - Active Staff, Obstetrics-Gynecology (OBGYN)] Care Physician,No Primary [Primary Care Provider, Medical] Activity Restrictions/Additional Instructions: Your test was negative in the ER. Your urine sample does show blood consistent with your history but there is no signs of urinary tract infection. Obtain your outpatient ultrasound to assess for anatomical causes of your bleeding and follow-up with ORTHOTIC PRACTITIONER for repeat evaluation. Return to the ER should you have any further concerns Print Language: Polish Disposition Disposition: Home, Self Care Discharge Date/Time: 08/11/25 00:44 What to do if you have Problems For any increased pain, shortness of breath, bleeding, nausea or vomiting, chestpain, or any unexpected problems, contact your Primary Care Provider. Call [facility] ([phone]) or report to the closest Emergency Room. Call 911 if necessary. 08/11/25 042 <Electronically signed by Kalyan Ashraf DO> Cosigner Signature (if applicable): CC: No Primary Care Physician ~ Signed [facility] Work Phone: Evaluation note* Diagnosis Encounter for screening laboratory testing for COVID-19 virus- Primary [facility]No assessment information availableW[facility] Work Phone: Evaluation note* Diagnosis Primary amenorrhea- Primary Absence of menstruation Screen for STD (sexually transmitted disease) Screening examination for venereal disease Encounter for other contraceptive management documented [facility] this [facility]* Diagnosis Pharyngitis, unspecified etiology- Primary Viral illness Unspecified viral infection, in conditions classified elsewhere and of unspecified site documented [facility] this [facility]* Diagnosis Encounter for surveillance of transdermal patch hormonal contraceptive device- Primary documented in this [facility]* Diagnosis with uncertain dates, antepartum- Primary state, incidental documented in this [facility]* Diagnosis 14 weeks gestation of - Primary state, incidental documented [facility] this [facility]* Diagnosis Supervision of normal first teen in second trimester- Primary 16 weeks gestation of state, incidental Need for influenza vaccination Need for prophylactic vaccination and inoculation against influenza documented [facility] this [facility]* Diagnosis Supervision of normal first teen in second trimester- Primary 20 weeks gestation of state, incidental [facility] Diagnosis Encounter for anatomic survey- Primary Supervision of normal first teen in second trimester 20 weeks gestation of state, incidental documented [facility] this [facility]* Diagnosis Supervision of normal first teen in second trimester- Primary 24 weeks gestation of state, incidental Supervision of high risk in second trimester Unspecified high-risk documented in this [facility]* Diagnosis Supervision of high risk in third trimester- Primary Unspecified high-risk 29 weeks gestation of state, incidental documented in this [facility]* Diagnosis Supervision of high risk in third trimester- Primary Unspecified high-risk 36 weeks gestation of state, incidental documented in this [facility]* Diagnosis 37 weeks gestation of - Primary state, incidental Supervision of high risk in third trimester Unspecified high-risk documented in this [facility]* Diagnosis 38 weeks gestation of - Primary state, incidental Supervision of high risk in third trimester Unspecified high-risk [facility] Diagnosis Supervision of high risk in third trimester- Primary Unspecified high-risk 39 weeks gestation of state, incidental Generalized anxiety disorder Elevated blood pressure reading without diagnosis of hypertension [facility]* Diagnosis 40 weeks gestation of - Primary state, incidental Encounter for supervision of normal first in third trimester Supervision of normal first Supervision of high risk in third trimester Unspecified high-risk Generalized anxiety disorder [facility] Diagnosis Onset Date Resolution Status False labor acute 41 weeks gestation of acute Care and examination of lactating mother acute Delivery by section acute Post-dates acute Postoperative abdominal pain acute Spontaneous rupture of amniotic membranes acute Teen acute [facility] Work Phone: Evaluation note* Diagnosis care and examination of lactating mother- Primary 2 weeks follow-up Nexplanon insertion Insertion of implantable subdermal contraceptive Generalized anxiety disorder [facility] Diagnosis care and examination- Primary Routine follow-up Acute vaginitis Vaginitis and vulvovaginitis, unspecified care and examination of lactating mother documented in this [facility]* Diagnosis Insertion of implantable subdermal contraceptive- Primary documented in this [facility]* Diagnosis Generalized weakness- Primary Other malaise and fatigue Dizziness Dizziness and giddiness documented in this encounter [facility]* Diagnosis Breakthrough bleeding on Nexplanon- Primary Metrorrhagia Menorrhagia with irregular cycle Excessive or frequent menstruation documented in this [facility]* Diagnosis Exposure to COVID-19 virus- Primary Nasal congestion Other diseases of nasal cavity and sinuses documented in this [facility]* Diagnosis Sore throat- Primary Acute pharyngitis Acute otitis media, right Unspecified otitis media COVID-19 documented in this encounter [facility]* Diagnosis Acute cough- Primary Pneumonia of both lower lobes due to infectious organism Acute cough [facility] Diagnosis Acute cough documented in this [facility]* Diagnosis Ringworm- Primary Dermatophytosis of unspecified site documented [facility]* Diagnosis Routine health maintenance- Primary Routine general medical examination at a health care facility Hair loss Alopecia, unspecified [facility] Diagnosis Right knee pain, unspecified chronicity- Primary [facility]* Diagnosis Right knee pain, unspecified chronicity [facility]* Diagnosis Patellar tendonitis of right knee- Primary [facility]* Diagnosis Encounter for gynecological examination (general) (routine) without abnormal findings- Primary Screen for STD (sexually transmitted disease) Screening examination for venereal disease [facility]* Diagnosis Viral URI with cough- Primary Acute upper respiratory infections of unspecified site [facility]* Diagnosis Vaginal odor- Primary Unspecified symptom associated with female genital organs Screen for STD (sexually transmitted disease) Screening examination for venereal disease Retained tampon, subsequent encounter Need for prophylactic vaccination/inoculation against viral disease Need for prophylactic vaccination and inoculation against other viral diseases documented [facility] this [facility]* Diagnosis Need for prophylactic vaccination/inoculation against viral disease- Primary Need for prophylactic vaccination and inoculation against other viral diseases [facility] Diagnosis Need for prophylactic vaccination/inoculation against viral disease- Primary Need for prophylactic vaccination and inoculation against other viral diseases [facility] Diagnosis Mood changes- Primary Unspecified episodic mood disorder Nexplanon removal Surveillance of previously prescribed implantable subdermal contraceptive [facility] Additional Instructions Follow-up with your counselor your primary care physician. Her physical exam is normal tonight. All of her labs were normal including CBC, chemistry. Alcohol was negative. Drug tox screen was negative. was negative.[facility] Work Phone: Hospital Discharge instructionsAdditional Instructions Your test was negative in the ER. Your urine sample does show blood consistent with your history but there is no signs of urinary tract infection. Obtain your outpatient ultrasound to assess for anatomical causes of your bleeding and follow-up with ORTHOTIC PRACTITIONER for repeat evaluation. Return to the ER should you have any further concernsWTrumbull [facility] Work Phone: Progress note Author Crista Hung [facility] March 9th, 2024 11:19am Note Date/Time January 07, 2024 11:1 7am [facility] Medical Records Department [address] [place] [address] Progress Note - OBGYN 01/07/24 1115 MR#: [id number] Acct: [id number] Name: MARISOL PONCE Rep #:[id number] : 2005 18 From: Crista Hung MD PCP: Dr. Lina Fong MD Status:ADM IN Location: ST140-7 Subjective Subjective Denies complaints Objective Data Objective Data Vital Signs: Vital Signs Temp Pulse Resp BP Pulse Ox O2 Del Method 98.2 F 76 16 119/74 99 Room Air 01/07/24 07:43 01/07/24 07:43 01/07/24 07:43 01/07/24 07:43 01/07/24 07:43 01/07/24 07:43 Oxygen Delivery Method Room Air Weight: 175 lb 7.807 oz Body Mass Index (BMI) 31.1 Lab / Micro Data 01/04/24 06:22 Physical Exam Const alert, oriented x3 and no apparent distress HEENT normocephalic GI soft to palpation, non-tender and non-distended GI Narrative: fundus firm, mid & below umbilicus Incision - bandage c/d/i Extremity normal to inspection and no calf tenderness Assessment & Plan (1) Delivery by section: COMMENT: POD#4 PLAN: Plan d/c home 01/07/24 1119 <Electronically signed by Crista Hung MD> Cosigner Signature (if applicable): CC: ~ Signed [facility] Work Phone: Reason for referral (narrative)* Diagnostic Procedure Only (Routine) - Pending Review Specialty Diagnoses / Procedures Referred By Contac t Referred To Contact [facility] Diagnoses 14 weeks gestation of Procedures OBSTETRIC ULTRASOUND WHI US PREG UTERUS AFTER 1ST TRIMEST GESTATION Judy Johnson MD [address] [place] [address] [facility] [address] [place] [address] Referral ID Status Reason Start Date Expiration Date Visits Requested Visits Authorized [id number] Pending Review Auto-Generat ed Referral 06/28/2023 06/27/2024 1 1 [facility] for referral (narrative)* Diagnostic Procedure Only (Routine) - Pending Review Specialty Diagnoses / Procedures Referred By Contac t Referred To Contact [facility] Diagnoses 16 weeks gestation of Supervision of normal first teen in second trimester Procedures OBSTETRIC ULTRASOUND WHI US PREG UTERUS AFTER 1ST TRIMEST GESTATION Taylor Echeverria MD [address] [place] [address] [address] [address] [place] [address] Referral ID Status Reason Start Date Expiration Date Visits Requested Visits Authorized [id number] Pending Review Auto-Generat ed Referral 07/13/2023 07/12/2024 1 1 [facility] for referral (narrative)* Outpatient Procedure (Routine) - Authorized Specialty Diagnoses / Procedures Referred By Contac t Referred To Contact [facility] Diagnoses Nexplanon insertion Procedures NEXPLANON INSERTION 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 Ruth Ramirez APRN.CNM [address] [place] [address] [facility] [address] [place] [address] Referral ID Status Reason Start Date Expiration Date Visits Requested Visits Authorized [id number] Authorized Auto-Generat ed Referral 01/18/2024 01/17/2025 1 1 T [facility] for referral (narrative)* Outpatient Procedure (Routine) - Pending Review Specialty Diagnoses / Procedures Referred By Contac t Referred To Contact [facility] Diagnoses Insertion of implantable subdermal contraceptive Procedures NEXPLANON INSERTION 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 Ruth Ramirez APRN.CNM [address] [place] [address] [facility] [address] [place] [address] Referral ID Status Reason Start Date Expiration Date Visits Requested Visits Authorized [id number] Pending Review Auto-Generat ed Referral 02/22/2024 02/21/2025 1 1 [facility] ([facility])No reason for referral information availableWTrumbull Memorial Hospital Work Phone: Reason for visit Narrative* Diagnostic Procedure Only (Routine) - Closed Specialty Diagnoses / Procedures Referred By Contac t Referred To Contact [facility] Diagnoses Right knee pain, unspecified chronicity Procedures XR KNEE GENERAL 4V AP BOTH/PA BOTH/LAT/MERC RIGHT RADIOLOGIC EXAM KNEE COMPLETE 4/MORE VIEWS Pako Newton MD [address] [place] [address] Phone: tel: fax: [place] [id number] Referral ID Status Reason Start Date Expiration Date V isits Requested Visits Authorized [id number] Closed Auto-Generate d Referral 01/01/2025 01/31/2026 1 1 [facility] for visit Narrative* Consult, Test, Treat (Routine) - Authorized Specialty Diagnoses / Procedures Referred By Shoac t Referred To Contact [employer] / ORTHOTIC PRACTITIONER Diagnoses Vaginal odor Vaginal Odor Procedures OFFICE/OUTPATIENT EST PT MAY NOT REQ PHYS/QHP OFFICE/OUTPATIENT ESTABLISHED HIGH MDM 40 MIN EST WHI PATIENT Self Dayron Cao MD [address] [place] [address] Phone: tel: fax: Referral ID Status Reason Start Date Expiration Date V isits Requested Visits Authorized [id number] Authorized 03/13/2025 10/30/2025 99 99 [facility] Health Concerns Infection Onset Date Last Indicated Resolved Time COVID-19 Rule-Out 04/09/2022 04/09/2022 Infection Onset Date Last Indicated Resolved Time COVID-19 Rule-Out 12/27/2022 12/27/2022 Summary Purpose Family History No Family History Records FoundNo Family History Records FoundNo Family History Records Found Advance Directives Advance Directive Response Recorded Date/ Time Living Will No January 03, 2024 6:12am Power of Inclusion Manager No January 02 6:12am Advance Directive Response Recorded Date/ Time Do you have a Healthcare Power of Inclusion Manager? No August 10, 2025 11:28pm Chief Complaint and Reason for Visit Chief Complaint WELLNES CHECK Chief Complaint R/O LABOR Chief Complaint R/O LABOR Reason for Visit False labor 41 weeks gestation of Care and examination of lactating mother Delivery by section Post-dates Postoperative abdominal pain Spontaneous rupture of amniotic membranes Teen Chief Complaint Admit Date vag bleed August 10, 2025 1 1:19pm Additional Source Comments Source Comments (unrecognize d section and content) In the event this informatio n is protected by the Federal Confidentiality of Alcohol and Drug Abuse Patient Records regulations: The Federal rules restrict any use of the information to criminally investigate or prosecute any alcohol or drug abuse patient.[facility] Hospital[facility] the event this information is protected by the Federal Confidentiality of Alcohol and Drug Abuse Patient Records regulations: The Federal rules restrict any use of the information to criminally investigate or prosecute any alcohol or drug abuse patient.[facility] Hospital[facility] the event this information is protected by the Federal Confidentiality of Alcohol and Drug Abuse Patient Records regulations: The Federal rules restrict any use of the information to criminally investigate or prosecute any alcohol or drug abuse patient.[facility] Hospital[facility] the event this information is protected by the Federal Confidentiality of Alcohol and Drug Abuse Patient Records regulations: The Federal rules restrict any use of the information to criminally investigate or prosecute any alcohol or drug abuse patient.[facility] Hospital[facility] the event this information is protected by the Federal Confidentiality of Alcohol and Drug Abuse Patient Records regulations: The Federal rules restrict any use of the information to criminally investigate or prosecute any alcohol or drug abuse patient.[facility] Hospital[facility] the event this information is protected by the Federal Confidentiality of Alcohol and Drug Abuse Patient Records regulations: The Federal rules restrict any use of the information to criminally investigate or prosecute any alcohol or drug abuse patient.[facility] Hospital[facility] the event this information is protected by the Federal Confidentiality of Alcohol and Drug Abuse Patient Records regulations: The Federal rules restrict any use of the information to criminally investigate or prosecute any alcohol or drug abuse patient.[facility] Hospital[facility] the event this information is protected by the Federal Confidentiality of Alcohol and Drug Abuse Patient Records regulations: The Federal rules restrict any use of the information to criminally investigate or prosecute any alcohol or drug abuse patient.[facility] Hospital[facility] the event this information is protected by the Federal Confidentiality of Alcohol and Drug Abuse Patient Records regulations: The Federal rules restrict any use of the information to criminally investigate or prosecute any alcohol or drug abuse patient.[facility] Hospital[facility] the event this information is protected by the Federal Confidentiality of Alcohol and Drug Abuse Patient Records regulations: The Federal rules restrict any use of the information to criminally investigate or prosecute any alcohol or drug abuse patient.[facility] HospitalIn the event this information is protected by the Federal Confidentiality of Alcohol and Drug Abuse Patient Records regulations: The Federal rules restrict any use of the information to criminally investigate or prosecute any alcohol or drug abuse patient.[facility] HospitalIn the event this information is protected by the Federal Confidentiality of Alcohol and Drug Abuse Patient Records regulations: The Federal rules restrict any use of the information to criminally investigate or prosecute any alcohol or drug abuse patient.[facility] HospitalIn the event this information is protected by the Federal Confidentiality of Alcohol and Drug Abuse Patient Records regulations: The Federal rules restrict any use of the information to criminally investigate or prosecute any alcohol or drug abuse patient.[facility] HospitalIn the event this information is protected by the Federal Confidentiality of Alcohol and Drug Abuse Patient Records regulations: The Federal rules restrict any use of the information to criminally investigate or prosecute any alcohol or drug abuse patient.[facility] Hospital[facility] the event this information is protected by the Federal Confidentiality of Alcohol and Drug Abuse Patient Records regulations: The Federal rules restrict any use of the information to criminally investigate or prosecute any alcohol or drug abuse patient.[facility] HospitalIn the event this information is protected by the Federal Confidentiality of Alcohol and Drug Abuse Patient Records regulations: The Federal rules restrict any use of the information to criminally investigate or prosecute any alcohol or drug abuse patient.[facility] HospitalIn the event this information is protected by the Federal Confidentiality of Alcohol and Drug Abuse Patient Records regulations: The Federal rules restrict any use of the information to criminally investigate or prosecute any alcohol or drug abuse patient.[facility] HospitalIn the event this information is protected by the Federal Confidentiality of Alcohol and Drug Abuse Patient Records regulations: The Federal rules restrict any use of the information to criminally investigate or prosecute any alcohol or drug abuse patient.[facility] HospitalIn the event this information is protected by the Federal Confidentiality of Alcohol and Drug Abuse Patient Records regulations: The Federal rules restrict any use of the information to criminally investigate or prosecute any alcohol or drug abuse patient.[facility] HospitalIn the event this information is protected by the Federal Confidentiality of Alcohol and Drug Abuse Patient Records regulations: The Federal rules restrict any use of the information to criminally investigate or prosecute any alcohol or drug abuse patient.[facility] HospitalIn the event this information is protected by the Federal Confidentiality of Alcohol and Drug Abuse Patient Records regulations: The Federal rules restrict any use of the information to criminally investigate or prosecute any alcohol or drug abuse patient.[facility] HospitalIn the event this information is protected by the Federal Confidentiality of Alcohol and Drug Abuse Patient Records regulations: The Federal rules restrict any use of the information to criminally investigate or prosecute any alcohol or drug abuse patient.[facility] HospitalIn the event this information is protected by the Federal Confidentiality of Alcohol and Drug Abuse Patient Records regulations: The Federal rules restrict any use of the information to criminally investigate or prosecute any alcohol or drug abuse patient.[facility] HospitalIn the event this information is protected by the Federal Confidentiality of Alcohol and Drug Abuse Patient Records regulations: The Federal rules restrict any use of the information to criminally investigate or prosecute any alcohol or drug abuse patient.[facility] HospitalIn the event this information is protected by the Federal Confidentiality of Alcohol and Drug Abuse Patient Records regulations: The Federal rules restrict any use of the information to criminally investigate or prosecute any alcohol or drug abuse patient.[facility] HospitalIn the event this information is protected by the Federal Confidentiality of Alcohol and Drug Abuse Patient Records regulations: The Federal rules restrict any use of the information to criminally investigate or prosecute any alcohol or drug abuse patient.[facility] HospitalIn the event this information is protected by the Federal Confidentiality of Alcohol and Drug Abuse Patient Records regulations: The Federal rules restrict any use of the information to criminally investigate or prosecute any alcohol or drug abuse patient.[facility] HospitalIn the event this information is protected by the Federal Confidentiality of Alcohol and Drug Abuse Patient Records regulations: The Federal rules restrict any use of the information to criminally investigate or prosecute any alcohol or drug abuse patient.[facility] HospitalIn the event this information is protected by the Federal Confidentiality of Alcohol and Drug Abuse Patient Records regulations: The Federal rules restrict any use of the information to criminally investigate or prosecute any alcohol or drug abuse patient.[facility] HospitalIn the event this information is protected by the Federal Confidentiality of Alcohol and Drug Abuse Patient Records regulations: The Federal rules restrict any use of the information to criminally investigate or prosecute any alcohol or drug abuse patient.[facility] HospitalIn the event this information is protected by the Federal Confidentiality of Alcohol and Drug Abuse Patient Records regulations: The Federal rules restrict any use of the information to criminally investigate or prosecute any alcohol or drug abuse patient.[facility] HospitalIn the event this information is protected by the Federal Confidentiality of Alcohol and Drug Abuse Patient Records regulations: The Federal rules restrict any use of the information to criminally investigate or prosecute any alcohol or drug abuse patient.[facility] HospitalIn the event this information is protected by the Federal Confidentiality of Alcohol and Drug Abuse Patient Records regulations: The Federal rules restrict any use of the information to criminally investigate or prosecute any alcohol or drug abuse patient.[facility] HospitalIn the event this information is protected by the Federal Confidentiality of Alcohol and Drug Abuse Patient Records regulations: The Federal rules restrict any use of the information to criminally investigate or prosecute any alcohol or drug abuse patient.[facility] HospitalIn the event this information is protected by the Federal Confidentiality of Alcohol and Drug Abuse Patient Records regulations: The Federal rules restrict any use of the information to criminally investigate or prosecute any alcohol or drug abuse patient.[facility] HospitalIn the event this information is protected by the Federal Confidentiality of Alcohol and Drug Abuse Patient Records regulations: The Federal rules restrict any use of the information to criminally investigate or prosecute any alcohol or drug abuse patient.[facility] HospitalIn the event this information is protected by the Federal Confidentiality of Alcohol and Drug Abuse Patient Records regulations: The Federal rules restrict any use of the information to criminally investigate or prosecute any alcohol or drug abuse patient.[facility] HospitalIn the event this information is protected by the Federal Confidentiality of Alcohol and Drug Abuse Patient Records regulations: The Federal rules restrict any use of the information to criminally investigate or prosecute any alcohol or drug abuse patient.[facility] HospitalIn the event this information is protected by the Federal Confidentiality of Alcohol and Drug Abuse Patient Records regulations: The Federal rules restrict any use of the information to criminally investigate or prosecute any alcohol or drug abuse patient.[facility] HospitalIn the event this information is protected by the Federal Confidentiality of Alcohol and Drug Abuse Patient Records regulations: The Federal rules restrict any use of the information to criminally investigate or prosecute any alcohol or drug abuse patient.[facility] HospitalIn the event this information is protected by the Federal Confidentiality of Alcohol and Drug Abuse Patient Records regulations: The Federal rules restrict any use of the information to criminally investigate or prosecute any alcohol or drug abuse patient.[facility] HospitalIn the event this information is protected by the Federal Confidentiality of Alcohol and Drug Abuse Patient Records regulations: The Federal rules restrict any use of the information to criminally investigate or prosecute any alcohol or drug abuse patient.[facility] HospitalIn the event this information is protected by the Federal Confidentiality of Alcohol and Drug Abuse Patient Records regulations: The Federal rules restrict any use of the information to criminally investigate or prosecute any alcohol or drug abuse patient.[facility] HospitalIn the event this information is protected by the Federal Confidentiality of Alcohol and Drug Abuse Patient Records regulations: The Federal rules restrict any use of the information to criminally investigate or prosecute any alcohol or drug abuse patient.[facility] HospitalIn the event this information is protected by the Federal Confidentiality of Alcohol and Drug Abuse Patient Records regulations: The Federal rules restrict any use of the information to criminally investigate or prosecute any alcohol or drug abuse patient.[facility] Reason for Visit (unrecogniz ed section and content) Reason Comments COVID for travel COVID for travel Specialty Diagnoses / Procedures Referred By Contac t Referred To Contact Family [facility] / [facility] Diagnoses wants covid test for 4H trip Procedures NEW SAME DAY Self Flako Hung APRN.SHELL TRIM TOOL SETTER [address] [place] [address] Referral ID Status Reason Start Date Expiration Date Visits Re quested Visits Authorized [id number] Closed 04/09/2022 10/30/2022 1 1 Reason Comments std testing Specialty Diagnoses / Procedures Referred By Contac t Referred To Contact Gynecology / ORTHOTIC PRACTITIONER Diagnoses control counseling STD testing, control counseling Procedures OFFICE/OUTPATIENT NEW HIGH MDM 60-74 MINUTES NEW [facility] PATIENT Self Jazzy Lin, ASSISTANT CLINICAL NURSE MANAGER.SHELL TRIM TOOL SETTER [address] [place] [phone] Referral ID Status Reason Start Date Expiration Date Visits Re quested Visits Authorized [id number] Closed 10/19/2022 10/30/2022 1 1 Reason Comments Head Congestion ST, cough, DUQUE x5 day s Specialty Diagnoses / Procedures Referred By Contac t Referred To Contact Internal Medicine / [facility] Diagnoses Pharyngitis, unspecified etiology Viral illness sore throat, congestion ,cough, headache, symptoms started 5 days ago Procedures OFFICE/OUTPATIENT ESTABLISHED MOD MDM 30-39 MIN EST SAME DAY Self Parish Narvaez APRN.SHELL TRIM TOOL SETTER [address] [place] [address] Referral ID Status Reason Start Date Expiration Date Visits Re quested Visits Authorized [id number] Closed 12/27/2022 10/30/2023 1 1 Reason Comments Medication Follow-up Specialty Diagnoses / Procedures Referred By Contac t Referred To Contact Gynecology / ORTHOTIC PRACTITIONER Diagnoses 3 MTH F/U CONTROL Procedures EST [facility] PATIENT Jazzy Lin, ASSISTANT CLINICAL NURSE MANAGER.SHELL TRIM TOOL SETTER [address] [place] [address] Jazzy Lin, ASSISTANT CLINICAL NURSE MANAGER.SHELL TRIM TOOL SETTER [address] [place] [address] Referral ID Status Reason Start Date Expiration Date V isits Requested Visits Authorized [id number] Authorized 10/31/2022 10/30/2023 99 99 Specialty Diagnoses / Procedures Referred By Contac t Referred To Contact Gynecology / ORTHOTIC PRACTITIONER Diagnoses Encounter for surveillance of transdermal patch hormonal contraceptive device poc u/s read Procedures US PREG UTERUS AFTER 1ST TRIMEST GESTATION OB ULTRASOUND POC Yasmin Cardenas, ASSISTANT CLINICAL NURSE MANAGER.SHELL TRIM TOOL SETTER [address] [place] [address] Yasmin Cardenas, ASSISTANT CLINICAL NURSE MANAGER.SHELL TRIM TOOL SETTER [address] [place] [address] Referral ID Status Reason Start Date Expiration Date V isits Requested Visits Authorized [id number] Closed Clearance Not Met -Financial Clearance Bypassed 06/01/2023 10/30/2023 1 1 Reason Comments Appointment Reason Onset Date Comments Care 07/13/2023 Immunizations 07/13/2023 Flu vaccination Specialty Diagnoses / Procedures Referred By Contac t Referred To Contact Gynecology / ORTHOTIC PRACTITIONER Diagnoses 3 MTH F/U CONTROL Procedures EST [facility] PATIENT Jazzy Lin, ASSISTANT CLINICAL NURSE MANAGER.SHELL TRIM TOOL SETTER [address] [place] [address] Jazzy Lin APRN.SHELL TRIM TOOL SETTER [address] [place] [address] Reason Onset Date Comments Care 08/10/2023 Reason Comments US Specialty Diagnoses / Procedures Referred By Contac t Referred To Contact [facility] Diagnoses 16 weeks gestation of Supervision of normal first teen in second trimester Procedures OBSTETRIC ULTRASOUND I US PREG UTERUS AFTER 1ST TRIMEST GESTATION Taylor Echeverria MD [address] [place] [address] [facility] [address] [place] [address] Referral ID Status Reason Start Date Expiration Date V isits Requested Visits Authorized [id number] Closed Auto-Generate d Referral 08/08/2023 10/30/2023 1 1 Reason Onset Date Comments Care 09/07/2023 Reason Onset Date Comments Care 10/12/2023 Reason Onset Date Comments Care 12/02/2023 Reason Onset Date Comments Care 12/07/2023 Reason Onset Date Comments Population Health Navigation Outreach 12/13/2023 OB/peds Reason Onset Date Comments Care 12/21/2023 Reason Onset Date Comments Care 12/28/2023 Reason Comments OB Cold/Cough Reason Comments Ob Delivery Note Reason Comments Early Reason Comments Routine Reason Comments nexplanon insertion Specialty Diagnoses / Procedures Referred By Sobeida rhoades Referred To Contact [facility] Diagnoses Nexplanon insertion Procedures NEXPLANON INSERTION 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 Ruth Ramirez APRN.[facility] [address] [place] [phone] [facility] [address] [place] [address] Referral ID Status Reason Start Date Expiration Date V isits Requested Visits Authorized [id number] Closed Auto-Generate d Referral 01/18/2024 01/17/2025 1 1 Reason Comments Menstrual Problem Frequent periods Reason Comments Nasal Congestion x 2 days, covid expo sure Reason Comments FYI-No Action Needed Reason Comments Results Reason Comments Chest Congestion cough, fever, sore t hroat, larynigitis x 1 week Reason Comments Cough Chest congestion, pa in in lungs, chest tightness, x 2 weeksStates she coughs so bad she is vomiting, taking ATB for ear Specialty Diagnoses / Procedures Referred By Sobeida rhoades Referred To Contact Radiology / [facility] Diagnoses Acute cough rm 5 Procedures RADIOLOGIC EXAM CHEST 2 VIEWS XR CHEST Abling, Braulio P, PA [address] [place] [address] [facility] [address] [place] [address] Referral ID Status Reason Start Date Expiration Date Visits Re quested Visits Authorized [id number] Closed 07/06/2024 10/30/2024 1 1 Reason Comments Rash Left upper thigh are a x 1 round area, x 2 weeks Reason Comments Hair Loss Pt states she notice d the last couple of months she's been losing hair and states she had a baby in December. 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 Diagnoses Vaginal odor Vaginal Odor Procedures OFFICE/OUTPATIENT EST PT MAY NOT REQ PHYS/QHP OFFICE/OUTPATIENT ESTABLISHED HIGH MDM 40 MIN EST [facility] PATIENT Self Dayron Cao MD [address] [facility] [place] [address] Phone: tel: fax: Referral ID Status Reason Start Date Expiration Date V isits Requested Visits Authorized [id number] Authorized 03/13/2025 10/30/2025 99 99 Reason Comments Orders Reason Onset Date Comments Gardasil Injection 03/14/2025 INFORMATION SOURCE (unrecogn ized section and content) DATE CREATED AUTHOR 07/31/2022 [facility] DATE CREATED AUTHOR AUTHOR'S ORGANIZ ATION 05/12/2025 [facility] DATE CREATED AUTHOR AUTHOR'S ORGANIZ ATION 08/17/2025 [facility] Goals (unrecognized section and content) Goals may be documented in a n alternate sectionGoals may be documented in an alternate sectionGoals may be documented in an alternate section Care Teams (unrecognized sec tion and content) Team Status: Active Member Role Status Dates Dr. Lina Fong MD Family Provider Active Dr. Lina Fong MD Primary Care Provider Active Team Status: Inactive Member Role Status Dates Dr. Lina Fong MD Primary Care Provider Active Destinee Yao CNM Attending Provider Active Team Status: Inactive Member Role Status Dates Dr. Lina Fong MD Primary Care Provider Active Ruth Ramirez CNM Admit Provider, Attending Provid er Active Cloth Washer Relationship Specialty Start Date End Date Cameron Blanton DO [address] [place] [address] PCP - General Family Medicine 08/09/24 Cloth Washer Relationship Specialty Start Date End Date Cameron Blanton DO [address] [place] [address] PCP - General Family Medicine 08/09/24 Cloth Washer Relationship Specialty Start Date End Date Cameron Blanton DO [address] [place] [address] PCP - General Family Medicine 08/09/24 Cloth Washer Relationship Specialty [place] [address] [place] [id number] PCP - General Family Medicine 08/09/24 Cloth Washer Relationship Specialty Start Date End Date Cameron Blanton DO [address] [place] [address] PCP - General Family Medicine 08/09/24 Cloth Washer Relationship Specialty [place] [address] [place] [address] [phone] PCP - General Family Medicine 08/09/24 Cloth Washer Relationship Specialty Start Date End Date Cameron Blanton DO [address] [place] [address] PCP - General Family Medicine 08/09/24 Cloth Washer Relationship Specialty Start Date End Date Cameron Blanton DO [address] [facility], [place] [id number] PCP - General Family Medicine 08/09/24 Cloth Washer Relationship Specialty [place] [address] [place] [address] [id number] PCP - General Family Medicine 08/09/24 Cloth Washer Relationship Specialty Start Date End Date Cameron Blanton DO [address] [facility], [place] [id number] PCP - General Family Medicine 08/09/24 Cloth Washer Relationship Specialty [place] [address] [place] [address] [phone] PCP - General Family Medicine 08/09/24 Team Status: Active Member Role/Relationship Status Dates No Primary Care Physician Primary care physician Activ e Team Status: Inactive Member Role/Relationship Status Dates No Primary Care Physician Primary care physician Activ e Start: August 10, 2025 End: August 11, 2025 Dr. Kalyan Ashraf DO Attending physician Active Start: August 10, 2025 End: August 11, 2025 Dr. Kalyan Ashraf DO Emergency Departme nt Physician Active Start: August 10, 2025 End: August 11, 2025 FOR RECORDS PERTAINING TO PATIENTS WHO ARE [...] BE BASED ON THE PRIMARY CLINICAL RECORDS. [employer] [facility]. provides no warranty or guarantee of the accuracy or completeness of information in this document.
[2025-10-29 21:51] VITALS: BP 128/79; PULSE 94; RESP 16; TEMP 36.6; O2SAT 99
== END 2025-10-29 21:52 | disposition home or self-care (01) ==
PROVIDERS: Emergency Provider Surgery; Visit Provider Surgery
DX: S09.90XA Unspecified injury of head, initial encounter (principal); M79.18 Myalgia, other site; V43.52XA Car driver injured in collision with other type car in traffic accident, initial encounter
CPT/HCPCS: 70450; 99282